=== PATIENT | male | born 1965 | race Caucasian/White ===

== ENCOUNTER 2022-06-28 01:50 | Emergency (ER) | payer SELFPAY ==
[2022-06-28] VITALS (8 sets, daily range): BP systolic 140–192; BP diastolic 54–112; PULSE 98–120; RESP 16–18; TEMP 36.2; O2SAT 93–98; BMI 29.1
[2022-06-28 02:40] LABS: Absolute Lymphocyte Count 1.88 X10^3/uL (0.83-4.51); Absolute Neutrophil Count 7.6 X10^3/uL (2.0-7.7); Basophil# 0.13 X10^3/uL; Basophil% 1.2 % (0-1); Eosinophil# 0.38 X10^3/uL; Eosinophils% 3.4 % (0-5); Hematocrit 43.8 % (40-54); Hemoglobin 14.4 g/dL (13.0-16.5); Lymphocyte # 1.88 X10^3/ul (0.83-4.51); Lymphocyte % 16.6 % (19-41); Mean Corp Hgb Conc 32.9 g/dL (32-36); Mean Corpuscular Hgb 28.6 pg (27.0-32.0); Mean Corpuscular Volume 86.9 fL (80-94); Mean Platelet Vol. 10.9 fl (6.2-12.0); Monocyte# 1.26 X10^3/uL; Monocyte% 11.2 % (0-10); NRBC Flagged by Analyzer 0 % (0-5); Neutrophil # 7.58 X10^3/uL (2.7-7.7); Platelet Count 225 K/mm3 (150-450); RBC Distribution Width CV 13.3 % (11.6-14.6); RBC Distribution Width SD 42.2 fl (35.1-43.9); Red Blood Count 5.04 M/mm3 (4.6-6.2); White Blood Count 11.3 K/mm3 (4.4-11.0)
[2022-06-28 02:53] LABS: Anion Gap 3 (5-15); BUN 26 mg/dL (7-18); Calcium,Total 8.9 mg/dL (8.5-10.1); Chloride 107 mmol/L (98-107); EST Glomerular Filtration Rate 92 mL/min (>60); Est Glom Filt Rate - Afr Amer 111 mL/min (>60); Estimated Creatinine Clearance 91.25 ml/min; Glucose 114 mg/dL (74-106); Potassium 3.7 mmol/L (3.5-5.1); Sodium Level 136 mmol/L (136-145)
[2022-06-28 02:55] LABS: Amphetamine Urine VISTA POSITIVE (<1000 ng/mL); Barbiturate Urine VISTA NEGATIVE (< 200 ng/mL); Benzodiazepine Urine VISTA NEGATIVE (< 200 ng/mL); Cocaine Urine VISTA NEGATIVE (< 300 ng/mL); Ecstacy Urine VISTA NEGATIVE (< 500 ng/mL); Methadone Urine VISTA NEGATIVE (< 300 ng/mL); PCP Urine VISTA NEGATIVE (< 25 ng/mL); THC Urine VISTA POSITIVE (< 50 ng/mL); Vista UDS pH Range 4
[2022-06-28 03:00] LABS: Alcohol, Blood (Medical)-Serum < 3.0 mg/dL
--- NOTE | 2022-06-28 06:25 | EKG12_ITS ---
Test Reason : Blood Pressure : / mmHG Vent. Rate : 104 BPM Atrial Rate : 104 BPM P-R Int : 100 ms QRS Dur : 082 ms QT Int : 358 ms P-R-T Axes : 028 036 064 degrees QTc Int : 470 ms Sinus tachycardia with short OH Otherwise normal ECG Confirmed by LUIS PEREZ, BRISEYDA ([id number]), city editor DAVID DENG ([id number]) on 07/03/2022 10:50:12 AM Referred By: BARBARA Confirmed By:BRISEYDA SMITH MD
--- NOTE | 2022-06-28 06:50 | ED.RN ---
ASSESSMENT FAXED TO US FROM CRISIS
[2022-06-28 07:08] LABS: AST(SGOT) 64 U/L (15-37); Alanine Aminotransfer ALT/SGPT 103 U/L (16-61); Albumin, Serum 3.4 g/dL (3.2-5.0); Alkaline Phosphatase 83 U/L (45-117); Bilirubin, Direct 0.14 mg/dL (0.00-0.30); Globulin 5.4 g/dL (2.2-4.2); Protein, Total 8.8 g/dL (6.4-8.2)
--- NOTE | 2022-06-28 07:40 | EDS_ITS ---
HPI History of Present Illness Chief Complaint: Suicidal Narrative Narrative: Patient is a 57-year-old male with past medical history of methamphetamine abuse. He states that he is always had suicidal ideation but that it appeared that the methamphetamine abuse kept it at bay. He states has been sober now for 5 months and recently his thoughts of suicide ideation have increased. He states is gotten to the point where he has actively plan to harm himself. He states this evening he was on his way to by sleeping pills so that he could overdose when his daughter contacted him and crisis center and they were able to convince him to not harm self but come to the hospital for evaluation. Patient does admit to having a few hits of meth this evening but otherwise denies alcohol or other illicit substances. PFSH PFSH Medical History no medical history Home Medications naproxen 500 mg tablet 500 mg PO BID PRN #20 tabs 12/05/15 [Rx Last Taken Unknown] prednisone 10 mg tablet 10 mg PO DAILY ##48 12/05/15 [Rx Last Taken Unknown] Allergy/AdvReac Type Severity Reaction Status Date / Time Penicillins AdvReac Upset Verified 06/28/22 01:55 Stomach Social History Smoking Status: Current every day smoker tobacco type: cigarettes ROS ROS ED Constitutional Constitutional ED: Denies chills or fever(s) Eyes Eyes: Denies change in vision ENT ENT ED: Denies sore throat Cardiovascular Cardiovascular: Denies chest pain Respiratory/Chest Respiratory/Chest: Denies cough or dyspnea Gastrointestinal Gastrointestinal: Denies abdominal pain, diarrhea, nausea or vomiting Genitourinary Genitourinary ED: Denies dysuria Musculoskeletal Musculoskeletal: Denies myalgias Integumentary Denies rash Neurologic Neurologic: Denies headache(s) Psychiatric Psychiatric: Reports depression, suicidal ideation and suicidal thoughts Hematologic/Lymphatic Hematologic/Lymphatic: Denies easy bleeding or easy bruising EXAM Physical Exam Const Vital Signs: 06/28/22 01:50 06/28/22 06:16 06/28/22 04:00 Temperature 97.1 F L Temperature Source Temporal Pulse Rate 120 H 98 Respiratory Rate 18 18 16 Blood Pressure 192/112 H 146/70 H Blood Pressure Mean 138 95 Pulse Ox 97 98 Oxygen Delivery Method Room Air Room Air Positive well nourished and well developed General Appearance ED: well developed Eyes PERRL and EOMs intact bilaterally Neck supple Resp normal respiratory effort and clear to auscultation bilaterally Cardio regular rhythm Rate: tachycardic and other Other Details: Tachycardic rate with regular rhythm consistent with history of methamphetamine abuse GI normal to inspection, nondistended, normoactive bowel sounds, non-tender, non- distended and no masses Auscultation: normoactive bowel sounds Palpation: soft Extremity normal to inspection Neuro oriented x3 and CN's II-XII intact bilaterally Sensorium / Orientation: alert Psych Psych Narrative: Patient has a depressed affect with suicidal ideation Skin no rashes or lesions noted MDM MDM MDM Narrative Medical decision making narrative: Patient presented to the ER mildly hypertensive and tachycardic consistent with his recent methamphetamine use. He reported suicidal ideation with a plan and a near attempt as he reported he was on his way to buy pills in order to overdose this evening. Secondary to that gesture along with his worsening suicidal ideation a psychiatric work-up was obtained. Labs revealed no clinically significant finding. The patient was evaluated by crisis center and they do agree that he will need placed for treatment based on his persistent suicidal ideation and near attempt this evening. This plan of care was discussed with the patient he is agreeable to placement. The patient will be signed out to the daytime physician Dr. Hernandez pending acceptance The patient is medically cleared from emergency room standpoint for transfer/placement in a psychiatric hospital History & Record Review Discussion w/independent historian: Patient Lab Data Attestation: I reviewed the patient's lab results. Labs: Laboratory Results - last 24 hr 06/28/22 06/28/22 06/28/22 02:15 02:27 02:27 WBC 11.3 H RBC 5.04 Hgb 14.4 Hct 43.8 MCV 86.9 MCH 28.6 MCHC 32.9 RDW Std Deviation 42.2 RDW Coeff of Lara 13.3 Plt Count 225 MPV 10.9 Immature Gran % (Auto) 0.600 Neut % (Auto) 67.0 Lymph % (Auto) 16.6 L [place] % (Auto) 11.2 H Eos % (Auto) 3.4 Baso % (Auto) 1.2 H Absolute Neuts (auto) 7.6 Absolute Lymphs (auto) 1.88 Nucleated RBC % 0 Sodium 136 Potassium 3.7 Chloride 107 Carbon Dioxide 26.0 Anion Gap 3 L BUN 26 H Creatinine 0.90 Estim Creat Clear Calc 91.25 Est GFR (MDRD) Af Amer 111 Est GFR (MDRD) Non-Af 92 BUN/Creatinine Ratio 29.0 H Glucose 114 H Calcium 8.9 Total Bilirubin Direct Bilirubin AST ALT Alkaline Phosphatase Total Protein Albumin Globulin Urine Opiates Screen NEGATIVE Urine Methadone Screen NEGATIVE Ur Barbiturates Screen NEGATIVE Ur Phencyclidine Scrn NEGATIVE Ur Amphetamines Screen POSITIVE H MDMA (Ecstasy) Screen NEGATIVE U Benzodiazepines Scrn NEGATIVE Urine Cocaine Screen NEGATIVE U Cannabinoids Screen POSITIVE H Ur Drug Screen Comment Ethyl Alcohol 06/28/22 06/28/22 02:27 02:27 WBC RBC Hgb Hct MCV MCH MCHC RDW Std Deviation RDW Coeff of Lara Plt Count MPV Immature Gran % (Auto) Neut % (Auto) Lymph % (Auto) [place] % (Auto) Eos % (Auto) Baso % (Auto) Absolute Neuts (auto) Absolute Lymphs (auto) Nucleated RBC % Sodium Potassium Chloride Carbon Dioxide Anion Gap BUN Creatinine Estim Creat Clear Calc Est GFR (MDRD) Af Amer Est GFR (MDRD) Non-Af BUN/Creatinine Ratio Glucose Calcium Total Bilirubin 0.40 Direct Bilirubin 0.14 AST 64 H ALT 103 H Alkaline Phosphatase 83 Total Protein 8.8 H Albumin 3.4 Globulin 5.4 H Urine Opiates Screen Urine Methadone Screen Ur Barbiturates Screen Ur Phencyclidine Scrn Ur Amphetamines Screen MDMA (Ecstasy) Screen U Benzodiazepines Scrn Urine Cocaine Screen U Cannabinoids Screen Ur Drug Screen Comment Ethyl Alcohol < 3.0 Management Discussion w/another healthcare provider: personal support worker/Case management and Behavioral health Discharge Plan Triage Chief Complaint: Suicidal ED Provider: Kyle Pelletier Dx/Rx/DC Orders Clinical Impression: Depression with suicidal ideation, Methamphetamine abuse Prescriptions: No Action prednisone 10 MG tablet 10 mg PO DAILY Qty: 48 0RF Rx Instructions: 6 po qd x 3 days, 4 po qd x 3 days, 2 po qd x 3 days, 1 po qd x 3 days naproxen 500 MG tablet 500 mg PO BID PRN Qty: 20 0RF Primary Care Provider: Care Physician,No Primary Referrals: Care Physician,No Primary [Primary Care Provider] - Disposition Disposition: Psychiatric Hospital or Unit
--- NOTE | 2022-06-28 11:31 | ED.RN ---
THIS RN ATTEMPTED TO CALL REPORT TO JASON AT 1000. NO ANSWER THIS RN LEFT WITH CALL BACK NUMBER. ATTEMPTED A SECOND CALL AT 1130 WITH NO ANSWER.
== END 2022-06-28 11:39 ==
PROVIDERS: Emergency Provider Emergency Medicine; Visit Provider Emergency Medicine
DX: F32.A Depression, unspecified (principal); F15.10 Other stimulant abuse, uncomplicated; R45.851 Suicidal ideations; F17.210 Nicotine dependence, cigarettes, uncomplicated
CPT/HCPCS: 80048; 80076; 80307; 82077; 85025; 87811; 93005; 99284

== ENCOUNTER 2024-07-18 18:08 | Emergency (ER) | payer MEDICAID, SELFPAY ==
[2024-07-18 18:08] VITALS: BP 181/111; PULSE 125; RESP 22; TEMP 36.4; O2SAT 100; BMI 28.3
[2024-07-18 18:27] VITALS: BP 162/81; PULSE 122; RESP 18; O2SAT 96
--- NOTE | 2024-07-18 18:30 | ED.RN ---
PT PRESENTS TO THE ED WITH MULTPLE C/O OF CHRONIC PAIN. HE DOES STATE HE HAS SOB. PTS HR IS ELEVATED TO 122. CALLED FOR EKG. PT STATES IN JUNE HE WAS SET UP WITH A HOLTER MONITOR BUT SOMEONE STOLE IT AND HE WAS NEVER ABLE TO GET THE READ OR COMPLETE THE PROCESS. HE STATES THE REASON FOR THE HALTER WAS D/T FEELING DIZZY, SYNCOPE, AND SOB RELATED TO HIS HR
--- NOTE | 2024-07-18 19:18 | RAD_ITS ---
PROCEDURE: CHEST PA AND LATERAL 07/18/2024 REASON FOR EXAM: SOB TECHNIQUE: Frontal and lateral views of the chest. COMPARISON: None FINDINGS: Hardware: None Heart: The heart size is normal. Mediastinum: The mediastinal contour is unremarkable. Lungs: No focal consolidation. No pneumothorax. No pleural effusion. Bones: The bones are unremarkable. RAD/Chest PA and Lateral IMPRESSION: NO ACUTE FINDINGS. Reading Location: [id number]
--- NOTE | 2024-07-18 19:22 | EDS_ITS ---
HPI <JASON Magdaleno - Last Filed: 07/18/24 21:39> History of Present Illness Chief Complaint: Other, Pain/Inj Narrative Narrative: Patient presenting today with multiple chronic vague complaints. He reports that he has had pain to his bilateral shoulders, wrists, legs, back, and ankles off and on for years. He reports occasional swelling to his ankles bilaterally. He reports that he usually gets a flare of this every 2 to 3 months. He has been seen in [place] ED and [place] [facility] for similar symptoms with no clear answer. He also reports chronic dyspnea with exertion that has been ongoing for years, he reports that today it felt worse. He reports a chronic cough with productive sputum, this has not been any worse recently. He denies any history of blood clots or recent surgery/travel/immobilization. He denies cardiac history. He does admit to smoking a pack of cigarettes per day. He does have a history of methamphetamine abuse, when asked if he has used recently he reports that he has been around people at the [facility] who are using it and has been exposed to it but denies recently using. He denies fevers, chills, abdominal pain, chest pain, nausea, and vomiting. [facility] <JASON Magdaleno - Last Filed: 07/18/24 21:39> [facility] Home Medications ?Medication ?Instructions ?Recorded ?Last Taken ?Type albuterol sulfate 90 mcg/actuation 1 - 2 puff inhalati on Q4H PRN PRN 07/18/24 Unknown Rx aerosol inhaler (Ventolin HFA) Wheezing #1 inh Allergy/AdvReac Type Severity Reaction Status Date / Time Penicillins AdvReac Upset Verified 07/18/24 18:32 Stomach Social History Smoking Status: Current every day smoker tobacco type: cigarettes ROS <JASON Magdaleno - Last Filed: 07/18/24 21:39> ROS ED Constitutional Constitutional ED: Denies chills or fever(s) Cardiovascular Cardiovascular: Denies chest pain Respiratory/Chest Respiratory/Chest: Reports cough, dyspnea on exertion and sputum; Denies tachypnea or wheezing Gastrointestinal Gastrointestinal: Denies abdominal pain, nausea or vomiting Musculoskeletal Musculoskeletal: Reports arthralgias Integumentary Denies rash Neurologic Neurologic: Denies weakness EXAM <JASON Magdaleno - Last Filed: 07/18/24 21:39> Physical Exam Const Vital Signs: 07/18/24 18:08 07/18/24 18:27 07/18/24 18:29 Temperature 97.6 F L Temperature Source Temporal Pulse Rate 125 H 122 H Respiratory Rate 22 H 18 Respiratory Effort Short of Breath Respiratory Pattern Normal Blood Pressure 181/111 H 162/81 H Blood Pressure Mean 134 108 Pulse Ox 100 96 Oxygen Delivery Method Room Air Room Air 07/18/24 19:25 07/18/24 20:21 07/18/24 21:19 Temperature 98 F Temperature Source Pulse Rate 110 H 110 H Respiratory Rate 25 H 25 H Respiratory Effort Respiratory Pattern Blood Pressure 153/86 H 153/86 H Blood Pressure Mean 108 108 Pulse Ox 93 93 Oxygen Delivery Method Room Air Positive well nourished, well developed and no apparent distress General Appearance ED: well developed HEENT Reports normocephalic and head/scalp atraumatic Mouth ED: Yes moist mucous membranes normal Eyes PERRL and EOMs intact bilaterally Neck full ROM and supple Chest Wall inspection of chest normal and palpation of chest normal Resp normal respiratory effort and clear to auscultation bilaterally Cardio regular rate and regular rhythm GI soft to palpation, non-tender, non-distended and no masses Back/Spine normal ROM and normal to inspection Cervical Spine: Negative for cervical spine tenderness Thoracic Spine / Upper Back: Negative for thoracic spinal tenderness Lumbar Spine / Lower Back: Negative for lumbar spinal tenderness Extremity normal to inspection and full ROM Extremity Narrative: Bilateral radial and DP pulses 2+, good cap refill to the upper and lower extremities, 5/5 strength and sensation upper and lower extremities. Patient does not have any tenderness palpation to the upper or lower extremities, he has full range of motion to the extremities. No overlying erythema, warmth, rash, or signs of infection. No lower extremity edema bilaterally. Neuro oriented x3, moves all extremities, no focal motor deficits and no sensory deficits noted Sensorium / Orientation: awake and alert Psych mental status grossly normal and thought process normal Skin no rashes or lesions noted and no wounds <Dr. Manjeet Lujan DO - Last Filed: 07/18/24 23:34> Physical Exam Const Vital Signs: 07/18/24 18:08 07/18/24 18:27 07/18/24 18:29 Temperature 97.6 F L Temperature Source Temporal Pulse Rate 125 H 122 H Respiratory Rate 22 H 18 Respiratory Effort Short of Breath Respiratory Pattern Normal Blood Pressure 181/111 H 162/81 H Blood Pressure Mean 134 108 Pulse Ox 100 96 Oxygen Delivery Method Room Air Room Air 07/18/24 19:25 07/18/24 20:21 07/18/24 21:19 Temperature 98 F Temperature Source Pulse Rate 110 H 110 H Respiratory Rate 25 H 25 H Respiratory Effort Respiratory Pattern Blood Pressure 153/86 H 153/86 H Blood Pressure Mean 108 108 Pulse Ox 93 93 Oxygen Delivery Method Room Air [facility] [place] <JASON Magdaleno - Last Filed: 07/18/24 21:39> [facility] Narrative Medical decision making narrative: Patient presenting today with multiple vague complaints that been ongoing for years intermittently. He gets pain flares to his back, wrists, lower extremities off and on. Nothing seems to trigger these flares. He has been to multiple ED's for them. I will refer him to pain management, no obvious causes of his pain on exam. No signs of infection, he is neurovascularly intact in the upper and lower extremities bilaterally. There is no peripheral edema on exam. No rash, he denies any injury. He also reports mild chronic dyspnea with exertion and a chronic productive cough. He does smoke about a pack of cigarettes per day, suspect this is related to COPD. He has had relief with albuterol, he has been using his friends, I will give him a prescription for this. CBC reveals a mild leukocytosis at 12.1, BMP largely unremarkable, negative troponin. Chest x-ray negative for cardiopulmonary abnormality. No infiltrate. He is not hypoxic here. No conversational dyspnea. EKG shows no ischemia. He has a low Wells score, low suspicion for PE. He does have an elevated heart rate, this has been elevated in the past. He has been exposed to methamphetamines which could be contributing to his elevated heart rate, he also used albuterol prior to arrival. This did improve while here. He was given Toradol for his arthralgias and on reexamination he reports improvement of his symptoms. I will give him a referral for pain management. He will be discharged home in stable condition. ED attending note: I evaluated the patient in conjunction with the DE[facility]. I agree with his/her statements and above findings. I have personally performed a face to face assessment of the patient and have reviewed the [facility] Note. I performed a substantive portion of the visit including all aspects of the following. I personally saw the patient performed chart review, physical exam, reviewed labs, imaging (if obtained), and formulated a treatment and management plan. History as above. Additional history. Patient notes chronic shortness of breath. The patient denies recent surgery in the last 4 weeks or immobilization in the last 3 days, denies previous diagnosis of DVT or PE, hemoptysis, unilateral leg swelling or malignancy with treatment the last 6 months or palliative. No estrogen use noted. Notes he took his friend's albuterol prior to arrival. Notes he is a round of methamphetamine but does not use despite prior history as documented of methamphetamine abuse. Denies chest pain to me. Denies lower extremity swelling. Denies joint swelling or deep range of motion but does note intermittent pain with no inciting event for months. Exam: Patient was initially tachycardic at a heart rate of 125, tachypneic with a respirate of 22 and hypertensive with a blood pressure 181/111. Lungs were clear. Abdomen was soft. Patient had no warmth or significant joint swelling noted. Full range of motion all of his joints. MDM/plan: Will perform a broad lab and imaging workup to further elucidate etiology of the patient's complaints. Despite tachycardia I have a low suspicion for PE given low risk Wells score and more possible explanation for the patient's elevated heart rate. The patient has a baseline heart rate approximately 110 going back to 2016. He admitted to using albuterol which causes tachycardia as well as being exposed to methamphetamine which has a history of using. Suspect his tachycardia is related to all the above. If labs and images are unremarkable patient will be discharged with close outpatient follow-up. This note was generated with Policard dictation software. It may contain incorrect words, spelling, and punctuation that were not noted in review of the chart prior to signing. Lab Data Attestation: I reviewed the patient's lab results. Labs: Laboratory Results - last 24 hr 07/18/24 18:33 WBC 12.1 H RBC 5.16 Hgb 14.7 Hct 45.1 MCV 87.4 MCH 28.5 MCHC 32.6 RDW Std Deviation 44.6 H RDW Coeff of Lara 13.7 Plt Count 227 MPV 12.0 Immature Gran % (Auto) 0.600 Neut % (Auto) 75.1 H Lymph % (Auto) 12.0 L [place] % (Auto) 9.7 Eos % (Auto) 1.9 Baso % (Auto) 0.7 Absolute Neuts (auto) 9.1 H Absolute Lymphs (auto) 1.44 Nucleated RBC % 0 Sodium 135 Potassium 4.0 Chloride 100 Carbon Dioxide 24.3 Anion Gap 11 BUN 18 Creatinine 0.97 Estim Creat Clear Calc 87.39 Est GFR (MDRD) Non-Af 89 BUN/Creatinine Ratio 18.7 Glucose 147 H Calcium 9.1 Troponin T High Sens 19 Radiography X-Ray: Read by ED Physician Diagnostic Testing: Clinical Impression(s) from Imaging Studies Chest X-Ray 07/18/24 19:18 IMPRESSION: NO ACUTE FINDINGS. Reading Location: [facility] EK Initial EKG: Comments: 120 bpm, sinus tachycardia, no ST elevation, interpreted by attending ED physician <Dr. Manjeet Lujan, DO - Last Filed: 07/18/24 23:34> [facility] [place] MDM Narrative Medical decision making narrative: Patient presenting today with multiple vague complaints that been ongoing for years intermittently. He gets pain flares to his back, wrists, lower extremities off and on. Nothing seems to trigger these flares. He has been to multiple ED's for them. I will refer him to pain management, no obvious causes of his pain on exam. No signs of infection, he is neurovascularly intact in the upper and lower extremities bilaterally. There is no peripheral edema on exam. No rash, he denies any injury. He also reports mild chronic dyspnea with exertion and a chronic productive cough. He does smoke about a pack of cigarettes per day, suspect this is related to COPD. He has had relief with albuterol, he has been using his friends, I will give him a prescription for this. CBC reveals a mild leukocytosis at 12.1, BMP largely unremarkable, negative troponin. Chest x-ray negative for cardiopulmonary abnormality. EKG shows no ischemia. He has a low Wells score, low suspicion for PE. ED attending note: I evaluated the patient in conjunction with the [facility]. I agree with his/her statements and above findings. I have personally performed a face to face assessment of the patient and have reviewed the [facility] Note. I performed a substantive portion of the visit including all aspects of the following. I personally saw the patient performed chart review, physical exam, reviewed labs, imaging (if obtained), and formulated a treatment and management plan. History as above. Additional history. Patient notes chronic shortness of breath. The patient denies recent surgery in the last 4 weeks or immobilization in the last 3 days, denies previous diagnosis of DVT or PE, hemoptysis, unilateral leg swelling or malignancy with treatment the last 6 months or palliative. No estrogen use noted. Notes he took his friend's albuterol prior to arrival. Notes he is a round of methamphetamine but does not use despite prior history as documented of methamphetamine abuse. Denies chest pain to me. Denies lower extremity swelling. Denies joint swelling or deep range of motion but does note intermittent pain with no inciting event for months. Exam: Patient was initially tachycardic at a heart rate of 125, tachypneic with a respirate of 22 and hypertensive with a blood pressure 181/111. Lungs were clear. Abdomen was soft. Patient had no warmth or significant joint swelling noted. Full range of motion all of his joints. MDM/plan: Will perform a broad lab and imaging workup to further elucidate etiology of the patient's complaints. Despite tachycardia I have a low suspicion for PE given low risk Wells score and more possible explanation for the patient's elevated heart rate. The patient has a baseline heart rate approximately 110 going back to 2016. He admitted to using albuterol which causes tachycardia as well as being exposed to methamphetamine which has a history of using. Suspect his tachycardia is related to all the above. If labs and images are unremarkable patient will be discharged with close outpatient follow-up. This note was generated with Policard dictation software. It may contain incorrect words, spelling, and punctuation that were not noted in review of the chart prior to signing. Lab Data Labs: Laboratory Results - last 24 hr 07/18/24 18:33 WBC 12.1 H RBC 5.16 Hgb 14.7 Hct 45.1 MCV 87.4 MCH 28.5 MCHC 32.6 RDW Std Deviation 44.6 H RDW Coeff of Lara 13.7 Plt Count 227 MPV 12.0 Immature Gran % (Auto) 0.600 Neut % (Auto) 75.1 H Lymph % (Auto) 12.0 L [place] % (Auto) 9.7 Eos % (Auto) 1.9 Baso % (Auto) 0.7 Absolute Neuts (auto) 9.1 H Absolute Lymphs (auto) 1.44 Nucleated RBC % 0 Sodium 135 Potassium 4.0 Chloride 100 Carbon Dioxide 24.3 Anion Gap 11 BUN 18 Creatinine 0.97 Estim Creat Clear Calc 87.39 Est GFR (MDRD) Non-Af 89 BUN/Creatinine Ratio 18.7 Glucose 147 H Calcium 9.1 Troponin T High Sens 19 Radiography Chest X-Ray - ED: Read by ED Physician Diagnostic Testing: Clinical Impression(s) from Imaging Studies Chest X-Ray 07/18/24 19:18 IMPRESSION: NO ACUTE FINDINGS. Reading Location: [facility] Discharge Plan Triage Chief Complaint: Other, Pain/Inj ED Midlevel Provider: Edna Nichols ED Provider: Manjeet Lujan Dx/Rx/DC Orders Clinical Impression: Tachycardia, Chronic dyspnea, Tobacco abuse, Arthralgia Instructions: ED Arthralgia, ED Dyspnea Prescriptions: New albuterol sulfate [Ventolin HFA] 90 mcg/actuation HFA aerosol inhaler 1 - 2 puff inhalation Q4H PRN PRN (Reason: Wheezing) Qty: 1 0RF Primary Care Provider: Care Physician,No Primary Referrals: Wily Cervantes MD [Med Staff - Active Staff] - 5-7 Days Care Physician,No Primary [Primary Care Provider] - Activity Restrictions/Additional Instructions: Please follow-up with pain management. Can also follow-up at the [facility] if you need a PCP at [phone]. Take Tylenol and ibuprofen for your pain as needed. Print Language: Welsh Disposition Disposition: Home, Self Care Discharge Date/Time: 07/18/24 21:33
[2024-07-18 19:31] LABS: Absolute Lymphocyte Count 1.44 X10^3/uL (0.83-4.51); Absolute Neutrophil Count 9.1 X10^3/uL (2.0-7.7); Basophil# 0.09 X10^3/uL; Basophil% 0.7 % (0-1); Eosinophil# 0.23 X10^3/uL; Eosinophils% 1.9 % (0-5); Hematocrit 45.1 % (40-54); Hemoglobin 14.7 g/dL (13.0-16.5); Lymphocyte # 1.44 X10^3/ul (0.83-4.51); Mean Corp Hgb Conc 32.6 g/dL (32-36); Mean Corpuscular Hgb 28.5 pg (27.0-32.0); Mean Corpuscular Volume 87.4 fL (80-94); Monocyte# 1.17 X10^3/uL; Monocyte% 9.7 % (0-10); NRBC Flagged by Analyzer 0 % (0-5); Neutrophil # 9.05 X10^3/uL (2.7-7.7); Neutrophil % 75.1 % (47-70); Platelet Count 227 K/mm3 (150-450); RBC Distribution Width CV 13.7 % (11.6-14.6); RBC Distribution Width SD 44.6 fl (35.1-43.9); Red Blood Count 5.16 M/mm3 (4.6-6.2); White Blood Count 12.1 K/mm3 (4.4-11.0)
[2024-07-18] MEDS: Ketorolac 15 MG/ML Vial IV (19:46)
[2024-07-18 19:47] LABS: Anion Gap 11 (5-15); BUN 18 mg/dL (4-19); BUN/Creat Ratio 18.7 RATIO (10-20); Calcium,Total 9.1 mg/dL (7.6-11.0); Carbon Dioxide 24.3 mmol/L (21.0-32.0); Chloride 100 mmol/L (98-108); Creatinine, Serum 0.97 mg/dL (0.70-1.20); EST Glomerular Filtration Rate 89 (>60); Estimated Creatinine Clearance 87.39 ml/min (50-250); Glucose 147 mg/dL (70-99); Sodium Level 135 mmol/L (133-145); Troponin T High Sensitivity 19 ng/L (<=22)
[2024-07-18 20:21] VITALS: BP 153/86; PULSE 110; RESP 25; O2SAT 93
[2024-07-18] MEDS: 0.9% Normal Saline (500mL Bag) 500 ML 999 ML IV (20:36)
[2024-07-18 21:19] VITALS: BP 153/86; PULSE 110; RESP 25; TEMP 36.6; O2SAT 93
== END 2024-07-18 21:33 | disposition home or self-care (01) ==
PROVIDERS: Physician Assistant; Emergency Provider Emergency Medicine; Visit Provider Emergency Medicine
DX: R00.0 Tachycardia, unspecified (principal); R06.00 Dyspnea, unspecified; F17.210 Nicotine dependence, cigarettes, uncomplicated
CPT/HCPCS: 71046; 80048; 84484; 85025; 93005; 96361; 96374; 99284; A4216

== ENCOUNTER 2025-02-03 08:52 | Inpatient (IN) | payer MEDICAID, SELFPAY ==
[2025-02-03 08:53] VITALS: BP 166/92; PULSE 119; RESP 18; TEMP 37.1; O2SAT 100; BMI 26.2
--- NOTE | 2025-02-03 09:29 | ED.VIS.LOWEX ---
HPI History of Present Illness Chief Complaint: Lower Extremity Injury Detail of Chief Complaint: Leg pain Informant: patient Narrative Narrative: Patient presents to the emergency department via EMS from homeless care home with complaint of bilateral leg pain and difficulty ambulating. Symptoms initially started about a month and a half ago while in [facility]it[facility]. He was just released from penitentiary yesterday. While in penitentiary he had x-rays of his pelvis and legs that apparently showed some mild arthritis. Patient has pain all the time that he rates an 8 out of 10. Having a hard time walking even with a walker and cannot get around. Denies fevers or chills or sweats. He denies injury or trauma. He is a smoker. PFSH PFSH Home Medications ?Medication ?Instructions ?Recorded ?Last Taken ?Type hydrocodone-acetaminophen 5-325mg 1 tab PO Q4H PRN PRN Pain 2 days 02/03/25 Unknown Rx 5mg-325mg #10 TABLETS Allergy/AdvReac Type Severity Reaction Status Date / Time Penicillins AdvReac Upset Verified 02/03/25 08:55 Stomach Social History Smoking Status: Current every day smoker tobacco type: cigarettes ROS ROS ED Review of Systems ROS Unobtainable: other Constitutional Constitutional ED: Reports lethargy; Denies chills, fever(s), sweats or weight loss Eyes Eyes: Denies blurry vision, change in vision or diplopia ENT ENT ED: Denies rhinorrhea or sore throat Cardiovascular Cardiovascular: Denies chest pain, orthopnea or racing heartbeat Respiratory/Chest Respiratory/Chest: Denies cough, dyspnea, dyspnea on exertion, orthopnea or sputum Gastrointestinal Gastrointestinal: Denies abdominal pain, diarrhea, nausea or vomiting Genitourinary Genitourinary ED: Denies dysuria, hematuria or urinary frequency Musculoskeletal Musculoskeletal: Reports other Details: Bilateral leg pain ; Denies arthralgias, back pain, myalgias or neck pain Integumentary Denies abscess, Abrasions or rash Neurologic Neurologic: Denies headache(s) or weakness Psychiatric Psychiatric: Denies anxiety, depression or suicidal thoughts Endocrine Endocrinology: Denies polydipsia, polyphagia or polyuria Hematologic/Lymphatic Hematologic/Lymphatic: Denies easy bleeding, easy bruising or lymphadenopathy Allergic/Immunologic Allergic/Immunologic ED: Denies mouth swelling, tongue swelling or urticaria EXAM Physical Exam Const Vital Signs: 02/03/25 08:53 02/03/25 10:16 Temperature 98.7 F 97.8 F Temperature Source Oral Oral Pulse Rate 119 H 106 H Respiratory Rate 18 18 Blood Pressure 166/92 H 168/93 H Blood Pressure Mean 116 118 Pulse Ox 100 100 Oxygen Delivery Method Room Air Room Air Positive well nourished and well developed General Appearance ED: well developed and NAD HEENT Reports TM's clear and moist mucous membranes normocephalic and atraumatic; Negative for trauma or tenderness Tympanic Membrane ED: Yes TM's clear Eyes PERRL and EOMs intact bilaterally General Eye ED: Negative for pale conjunctiva or scleral icterus Neck no lymphadenopathy, supple and no JVD General: Negative for tenderness Chest Wall inspection of chest normal and palpation of chest normal Chest: Negative for tenderness Resp normal respiratory effort and clear to auscultation bilaterally Effort and Inspection: Negative for respiratory distress or pain with movement Auscultation: Negative for rhonchi, wheezes or diminished lung sounds Cardio regular rate, regular rhythm, S1 normal heart sound, S2 normal heart sound and no murmurs Peripheral Pulses: pulses 2+ throughout GI normal to inspection, nondistended, normoactive bowel sounds, soft to palpation, non-tender, non-distended and no masses Back/Spine no CVA tenderness and no thoracic nor lumbar tenderness Extremity normal to inspection Extremity Narrative: Cap refill about 6 seconds both lower extremities to feet. Minimally palpable dorsal pedal and posterior tibial pulses as well as popliteal pulses. No ecchymosis or bruising or pallor noted. No edema noted. No joint effusions noted at the knees or ankles. No cellulitic changes General Extremety ED: Negative for edema General Extremity: Negative for edema Neuro oriented x3, CN's II-XII intact bilaterally, no sensory deficits noted and gait normal Sensorium / Orientation: awake, alert, oriented to person, oriented to place and oriented to time Motor Exam: strength 5/5 throughout and strength abnormal Psych mental status grossly normal Skin no rashes or lesions noted and no wounds MDM MDM MDM Narrative Medical decision making narrative: Patient presents with a pain in both legs and difficulty ambulating now. Initially had some concern for claudication. Also on the differential would be polyarthropathy. IV line established. CBC with differential obtained showed a white count of 9.5 with hemoglobin 12.2 and platelet count of 240. Chemistries were unremarkable. Sed rate elevated at 27 and CRP was elevated 83.5. I obtained CT scan of abdomen pelvis with runoffs to evaluate vasculature. CT shows enlarged prostate gland with lobulated contours and loss of margin and extraprostatic extension of disease including anterior wall of rectum and posterior wall bladder concerning for prostate neoplasm. Patient also has lytic sclerotic lesions in the skeleton including distorted appearance of proximal right 12th rib and proximal left 11th rib with lytic lesions right and left iliac bones and multiple vertebral bodies. Patient had mild peripheral multilevel vascular disease with no occlusions. This point we will discuss case with hospitalist to evaluate patient for admission as he will need further workup for suspected prostate neoplasm with metastasis to the bone. Patient having difficulty ambulating and may need placement as well. Patient was seen by hospitalist and now is refusing admission. Patient would like to sign out AGAINST MEDICAL ADVICE. Patient understands that he has cancer and symptoms could progress quite quickly. I will give him referrals to urology and oncology. I will write him a prescription for few [place] for pain. Patient was not excepted back at the homeless care home as he cannot care for himself and patient return to the emergency department for placement. He was offered admission for placement and outpatient follow-up and workup for his newly diagnosed metastatic prostate cancer. He does not want to be transferred to another facility for more emergent diagnosis and treatment of his metastatic prostate cancer as he understands we do not have urology or oncology available in the near term at our facility. Lab Data Attestation: I reviewed the patient's lab results. Labs: Laboratory Results - last 24 hr 02/03/25 02/03/25 09:42 12:41 WBC 9.5 RBC 4.50 L Hgb 12.2 L Hct 37.9 L MCV 84.2 MCH 27.1 MCHC 32.2 RDW Std Deviation 44.1 H RDW Coeff of Lara 14.4 Plt Count 240 MPV 10.6 Immature Gran % (Auto) 0.600 Neut % (Auto) 68.4 Lymph % (Auto) 16.7 L Teller % (Auto) 10.5 H Eos % (Auto) 2.8 Baso % (Auto) 1.0 Absolute Neuts (auto) 6.5 Absolute Lymphs (auto) 1.58 Nucleated RBC % 0 ESR 27 H Sodium 139 Potassium 4.4 Chloride 103 Carbon Dioxide 24.4 Anion Gap 12 BUN 31 H Creatinine 1.03 Estim Creat Clear Calc 75.31 Est GFR (MDRD) Non-Af 83 BUN/Creatinine Ratio 30.5 H Glucose 106 H Calcium 9.3 C-React Prot Ext Range 83.50 H PSA Screen > 5000.00 H Radiography Diagnostic Testing: Clinical Impression(s) from Imaging Studies Abdomen/Pelvis CTA 02/03/25 10:07 IMPRESSION: Enlarged prostate gland with lobulated contours and loss of margin and extraprostatic extension of disease including the anterior wall of the rectum and posterior wall of the bladder concerning for prostatic neoplasm. Extensive pelvic and retroperitoneal lymphadenopathy. Lytic sclerotic lesions in the skeleton including a destroyed appearance of the proximal right 12th rib and proximal left 11th rib with lytic lesion seen in the right and left iliac bones and multiple vertebral bodies more significantly at L1. Heavy coronary arterial calcifications and small pericardial effusion. No abdominal aortic aneurysm, dissection or occlusion. Mild peripheral multilevel vascular disease with no occlusion. Three-vessel runoff present through the level of the ankle. Reading Location: [facility] Discharge Plan Triage Chief Complaint: Lower Extremity Injury ED Provider: Stormy Chase Dx/Rx/DC Orders Clinical Impression: Inability to walk, Prostate cancer metastatic to bone Primary Care Provider: Care Physician,No Primary
[2025-02-03] MEDS: 0.9% Normal Saline (1000mL) 1,000 ML 150 ML IV (09:40)
[2025-02-03 09:50] LABS: Hematocrit 37.9 % (40-54); Hemoglobin 12.2 g/dL (13.0-16.5); Immature Granulocytes Count 0.060 X10^3/uL (0.0-0.0); Mean Corp Hgb Conc 32.2 g/dL (32-36); Mean Corpuscular Volume 84.2 fL (80-94); Mean Platelet Vol. 10.6 fl (6.2-12.0); NRBC Flagged by Analyzer 0 % (0-5); Platelet Count 240 K/mm3 (150-450); RBC Distribution Width CV 14.4 % (11.6-14.6); RBC Distribution Width SD 44.1 fl (35.1-43.9); Red Blood Count 4.50 M/mm3 (4.6-6.2); White Blood Count 9.5 K/mm3 (4.4-11.0)
--- NOTE | 2025-02-03 10:07 | CT_ITS ---
PROCEDURE: CTA ABD W/RUNOFF W/WO CONTRAST 02/03/2025 REASON FOR EXAM: BILATERAL LEG PAIN TECHNIQUE: Procedure Code: [id number] Modality: CT Procedure: CTA ABD W/RUNOFF W/WO CONTRAST CT angiography of the abdomen and pelvis with bilateral runoff is performed following the intravenous administration of contrast. Axial sagittal and coronal reformatted images are submitted for interpretation. 3D post processing is performed consisting of MIP images CONTRAST: 100 VOLUME: Isovue 370 mL One or more dose reduction techniques were used (e.g., Automated exposure control, adjustment of the mA and/or kV according to patient size, use of iterative reconstruction technique). RADIATION DOSE SUMMARY: Total DLP: 1121 MGycm COMPARISON: None FINDINGS: Vascular findings: There is a small pericardial effusion. Coronary arterial calcifications are evident. Atherosclerosis is seen in the descending aorta which is of normal caliber. There is atherosclerosis of the origin of the celiac axis and SMA. No stenosis seen. Atherosclerotic plaque is seen within the renal arteries bilaterally without stenosis. The abdominal aorta demonstrates heavy calcified plaque but no aneurysm. There is no dissection. The MIRTA is patent. The right common iliac artery demonstrates extensive atherosclerosis with less than 50% stenosis present in the proximal common iliac artery. There is normal bifurcation of the internal and external iliac arteries which demonstrates eccentric calcified plaque. 50% stenosis is present in right internal iliac artery. Eccentric calcified plaque is noted throughout the course of the right external iliac artery. Extensive soft and hard plaque is seen in the common femoral artery and superficial femoral artery. There is no occlusion. The popliteal artery is well opacified with a normal tibioperoneal trunk a normal three-vessel runoff to the ankle. Dorsalis pedis is widely patent. Plantar arch is visualized and appears within normal limits. The left common iliac artery demonstrates soft and hard plaque. There is no visible stenosis. There is normal bifurcation pattern with patent internal and external iliac arteries identified. The left external iliac artery demonstrates eccentric calcified plaque but no stenosis. Patent profunda and SFA arteries present with eccentric plaque noted throughout the course of the left SFA. No occlusion or dissection. Left popliteal arteries patent as is the tibioperoneal trunk. Heavy calcified plaque is seen in the distal tibioperoneal trunk but a normal three-vessel runoff is seen to the ankle with a patent dorsalis pedis and a patent plantar arch. Nonvascular findings: Markedly enlarged prostate gland with lobulated contour and loss of margins. The prostate measures a proximally 7.5 x 8 x 10 cm and appears to indent on the anterior wall of the rectum. There is extensive disease present throughout the posterior bladder wall. Bilateral inguinal lymphadenopathy present with a 6.8 x 3.3 cm lymph node in the right external iliac chain and a lymph node conglomerate along the right pelvic sidewall measuring 5.8 x 2.5 cm. Additional lymph nodes are seen tracking along the pelvis along both iliac chains into the retroperitoneum. There is a large enhancing retroperitoneal lymph node to the left of the aorta measuring 17 mm in short axis. Metastatic disease to bone is present with destroyed appearance of the posterior right 12th rib. Similar findings are noted within the left proximal 11th rib. Abnormal appearance is present in the inferior endplate of L1. Multifocal areas of abnormal signal also noted within additional vertebral bodies. Lytic lesions are present in the iliac crest with a lytic sclerotic lesion seen in the right iliac crest measuring up to 16 mm. The lung bases reveal no suspicious pulmonary nodule effusion or mass. The enhanced appearance of the liver, pancreas and spleen reveal no abnormality. The gallbladder is within normal limits with no wall thickening or pericholecystic fluid. No intra or extrahepatic biliary ductal dilatation is noted. The adrenal glands are normal in caliber. No mass. The kidneys enhance symmetrically. There is mild right hydronephrosis secondary to pelvic lymphadenopathy. The left kidney enhances normally. There is no solid mass. No nephrolithiasis noted. The urinary bladder is slightly displaced anterior superiorly due to prostatic mass with indistinct appearance of the posterior bladder wall concerning for direct invasion of tumor. Lower extremities are normal. There is no mass. There is no muscle atrophy. No joint effusion seen. No acute process identified. CT/CTA Abd w/Runoff W/WO Contrast IMPRESSION: Enlarged prostate gland with lobulated contours and loss of margin and extrapro static extension of disease including the anterior wall of the rectum and posterior wall of the bladder concerning for prostatic n eoplasm. Extensive pelvic and retroperitoneal lymphadenopathy. Lytic sclerotic lesions in the skeleton including a destroyed appearance of the proximal right 12th rib and proximal left 11th rib with lytic lesion seen in the right and left iliac bones and multiple verte bral bodies more significantly at L1. Heavy coronary arterial calcifications and small pericardial effusion. No abdominal aortic aneurysm, dissection or occlusion. Mild peripheral multilevel vascular disease with no occlusion. Three-vessel ru noff present through the level of the ankle. Reading Location: [id number]
[2025-02-03 10:16] VITALS: BP 168/93; PULSE 106; RESP 18; TEMP 36.6; O2SAT 100
[2025-02-03 10:42] LABS: Anion Gap 12 (5-15); BUN 31 mg/dL (4-19); BUN/Creat Ratio 30.5 RATIO (10-20); CRP 83.50 mg/L (0.0-3.0); Calcium,Total 9.3 mg/dL (7.6-11.0); Carbon Dioxide 24.4 mmol/L (21.0-32.0); Chloride 103 mmol/L (98-108); Estimated Creatinine Clearance 75.31 ml/min (50-250); Glucose 106 mg/dL (70-99); Potassium 4.4 mmol/L (3.3-5.1)
--- NOTE | 2025-02-03 13:23 | PCM.PN.HOSP ---
Subjective Subjective 59-year-old male presents to the hospital from a homeless correction because of bilateral lower extremity pain and weakness. He had just gotten out of alf the day before and states that he had been having pain for about a month and a half. There is concern in the emergency room for claudication so CTA with runoff was obtained unfortunately demonstrated significant cancer burden potential from the prostate with metastatic bone lesions and significant bilateral inguinal lymphadenopathy. Objective Data Objective Data Vital Signs: Vital Signs Temp Pulse Resp BP Pulse Ox O2 Del Method 97.8 F 106 H 18 168/93 H 100 Room Air 02/03/25 10:16 02/03/25 10:16 02/03/25 10:16 02/03/25 10:16 02/03/25 10:16 02/03/25 10:16 Oxygen Delivery Method Room Air Weight: 177 lb 14.609 oz Body Mass Index (BMI) 26.2 Intake & Output: Intake and Output for Last 24 Hours 02/02/25 02/03/25 02/04/25 03:59 03:59 03:59 Intake Total 1000 / 1000 Balance 1000 / 1000 Lab / Micro Data 02/03/25 09:42 02/03/25 09:42 Labs: Laboratory Results - last 24 hr 02/03/25 09:42: WBC 9.5, RBC 4.50 L, Hgb 12.2 L, Hct 37.9 L, MCV 84.2, MCH 27.1, MCHC 32.2, RDW Std Deviation 44.1 H, RDW Coeff of Lara 14.4, Plt Count 240, MPV 10.6, Immature Gran % (Auto) 0.600, Neut % (Auto) 68.4, Lymph % (Auto) 16.7 L, [place] % (Auto) 10.5 H, Eos % (Auto) 2.8, Baso % (Auto) 1.0, Absolute Neuts (auto) 6.5, Absolute Lymphs (auto) 1.58, Nucleated RBC % 0, ESR 27 H, Sodium 139, Potassium 4.4, Chloride 103, Carbon Dioxide 24.4, Anion Gap 12, BUN 31 H, Creatinine 1.03, Estim Creat Clear Calc 75.31, Est GFR (MDRD) Non-Af 83, BUN/Creatinine Ratio 30.5 H, Glucose 106 H, Calcium 9.3, C-React Prot Ext Range 83.50 H Radiography Diagnostic Testing: Radiology Impression Abdomen/Pelvis CTA 02/03/25 10:07 IMPRESSION: Enlarged prostate gland with lobulated contours and loss of margin and extraprostatic extension of disease including the anterior wall of the rectum and posterior wall of the bladder concerning for prostatic neoplasm. Extensive pelvic and retroperitoneal lymphadenopathy. Lytic sclerotic lesions in the skeleton including a destroyed appearance of the proximal right 12th rib and proximal left 11th rib with lytic lesion seen in the right and left iliac bones and multiple vertebral bodies more significantly at L1. Heavy coronary arterial calcifications and small pericardial effusion. No abdominal aortic aneurysm, dissection or occlusion. Mild peripheral multilevel vascular disease with no occlusion. Three-vessel runoff present through the level of the ankle. Reading Location: [facility] Assessment & Plan Assessment/Plan (1) Prostate cancer metastatic to bone: PLAN: Plan 1. Bilateral lower extremity pain with likely new metastatic prostate cancer ? I offered him to come into the hospital for physical therapy evaluation and possible placement as well as further workup of his cancer. He refused and states that he wants to go home. I discussed with him that we also do not have radiology coverage or urology coverage this week and that he could also potentially be transferred from the emergency room to a tertiary center for further evaluation and biopsy of his cancer however he refuses to be transferred to another hospital. He is requesting to be discharged back to the homeless correction as he does not want to stay in the hospital. ? He expressed understanding of the risks and benefits of going home and would still like to leave today. I did reiterate that it would be prudent to stay either here for evaluation and transfer to SNF versus going to a tertiary center where workup could be completed this week, however he states again that he would prefer to go home ? Discussed with the emergency room physician to discharge from ER Charges/Coding Visit Charges Office Visits / Consults: [id number] ED Visit; Low/Mod Severity
--- NOTE | 2025-02-03 13:35 | ED.RN ---
pt leaving AMA, signed papers and copy given. going to [facility] and pt states he is able to get around with cane on his own. w/c to waiting room. hospital van to transport.
[2025-02-03 13:45] LABS: PSA,Total - Annual Screen > 5000.00 ng/mL (0.02-4.00)
--- NOTE | 2025-02-03 14:00 | ED.RN ---
Per Lidia at [facility] pt is not appropriate for their homeless senior care. Pt required hands on care this morning, unable to get out of the shower by himself. She states their staff is not equipped to give that level of care.
--- NOTE | 2025-02-03 14:19 | ED.RN ---
hospitalist to admit pt for placement.
[2025-02-03 14:52] VITALS: BP 151/81; PULSE 116; RESP 18; TEMP 36.6; O2SAT 100
--- NOTE | 2025-02-03 15:06 | CM.ED ---
Social Work SW met with patient who initially stated he did not want to admit to [facility], that he wanted to discharge back to [facility] and figure out his treatment from there. SW contacted Lidia at [facility] who stated patient is not able to return to the care home as he requires too much hands on care and is unable to ambulate independently. SW spoke with patient again regarding the benefits of staying at [facility] for additional testing. Patient agreed to stay at this time, but voiced frustration to being unable to return to the care home stating I wasnt able to walk when I got there! Connie Ackerman, SENIOR BENEFITS MANAGER, [employer]
[2025-02-03 16:07] VITALS: BP 152/111; PULSE 108; RESP 20; TEMP 36.7; O2SAT 100; BMI 24.7
--- NOTE | 2025-02-03 16:33 | PCM.HP.STD ---
HPI - General General Date of Admission: 02/03/25 HPI Narrative BELL ROBISON, is a 59 M who presents to the hospital with lower extremity weakness and pain. He denies anything that makes the pain better or worse and he does not feel like the pain is shooting from his back down his legs he says that it is in his ankles and will occasionally shoot up into his groin on the left leg mostly though the right ankle is also sore. If he tries to do a straight leg raise with his left leg it causes pain in his inguinal region unclear if this is related to the significant lymphadenopathy. The ED physician was concerned for vascular compromise given the situation so ordered a CTA of the abdomen and pelvis with runoff it looks like arteries are okay however he does have a very large prostate cancer with bilateral large inguinal lymphadenopathy and bone mets to the spine as well as ribs and left iliac, a PSA was added on which was greater than 5000. Unfortunately we have no interventional radiology or urology for biopsies and I discussed with him if he would prefer to come to this institution to go to a shelter versus going to a higher level of care where they would be able to do biopsies and have evaluation by specialist sooner, he would prefer to stay here. [facility] Home Medications ?Medication ?Instructions ?Recorded ?Last Taken ?Type hydrocodone-acetaminophen 5-325mg 1 tab PO Q4H PRN PRN Pain 2 days 02/03/25 Unknown Rx 5mg-325mg #10 TABLETS Allergy/AdvReac Type Severity Reaction Status Date / Time Penicillins AdvReac Upset Verified 02/03/25 08:55 Stomach Family History (Updated 02/04/25 @ 09:[address] Pacheco Fry MD) Other Heart disease no surgical history Social History Smoking Status: Current every day smoker tobacco type: cigarettes ROS Constitutional Constitutional: Denies chills, fatigue, fever(s) or malaise Eyes Eyes: Denies blurry vision ENT HEENT: Denies headache(s) or nasal discharge Cardiovascular Cardiovascular: Denies chest pain, dyspnea on exertion or syncope Respiratory/Chest Respiratory/Chest: Denies cough, shortness of breath at rest or shortness of breath with exertion Gastrointestinal Gastrointestinal: Denies constipation, diarrhea, nausea or vomiting Genitourinary Genitourinary: Denies dysuria Musculoskeletal Musculoskeletal: Reports other Details: Leg pain Neurologic Neurologic: Denies focal weakness, numbness or tremor(s) Psychiatric Psychiatric: Denies anxiety or depression Vital Signs Vital Signs Vital Signs: 02/03/25 08:53 02/03/25 10:16 02/03/25 14:52 Temperature 98.7 F 97.8 F 97.8 F Temperature Source Oral Oral Pulse Rate 119 H 106 H 116 H Respiratory Rate 18 18 18 Blood Pressure 166/92 H 168/93 H 151/81 H Blood Pressure Mean 116 118 104 Blood Pressure Source Blood Pressure Position Blood Pressure Location Pulse Ox 100 100 100 Oxygen Delivery Method Room Air Room Air 02/03/25 16:07 Temperature 98.1 F Temperature Source Oral Pulse Rate 108 H Respiratory Rate 20 H Blood Pressure 152/111 H Blood Pressure Mean 124 Blood Pressure Source Monitor Blood Pressure Position Semi-Fowlers Blood Pressure Location Right Arm Pulse Ox 100 Oxygen Delivery Method Room Air Weight Weight: 168 lb Body Mass Index (BMI) 24.7 Physical Exam Narrative General: Alert, Oriented x3, Cooperative, No apparent distress HEENT: Atraumatic, PERRLA, EOMI, Normocephalic Oral: Moist Mucosa Neck: Supple, No JVD Lungs: Diminished, Normal air movement, No rhonchi, No wheeze, No rales Cardiovascular: Regular rate, Regular Rhythm, Normal S1, Normal S2, No murmurs Abdomen: Soft, Non Tender, Non-Distended, No Hepato-splenomegaly Extremities: No edema, Capillary Refill Less than 3 Seconds Skin: No rashes, No breakdown Musculoskeletal: No Tenderness to Palpation of Joints or Extremities, pain in his inguinal region with the left straight leg raise no pain with right leg raise no back pain Neurological: No focal neurological deficits, moves all extremities Psych/Mental Status: Normal Affect, Appropriate Results Lab / Micro Data 02/04/25 06:30 02/04/25 06:30 Labs: Laboratory Results - last 24 hr 02/03/25 09:42: WBC 9.5, RBC 4.50 L, Hgb 12.2 L, Hct 37.9 L, MCV 84.2, MCH 27.1, MCHC 32.2, RDW Std Deviation 44.1 H, RDW Coeff of Lara 14.4, Plt Count 240, MPV 10.6, Immature Gran % (Auto) 0.600, Neut % (Auto) 68.4, Lymph % (Auto) 16.7 L, [place] % (Auto) 10.5 H, Eos % (Auto) 2.8, Baso % (Auto) 1.0, Absolute Neuts (auto) 6.5, Absolute Lymphs (auto) 1.58, Nucleated RBC % 0, ESR 27 H, Sodium 139, Potassium 4.4, Chloride 103, Carbon Dioxide 24.4, Anion Gap 12, BUN 31 H, Creatinine 1.03, Estim Creat Clear Calc 75.31, Est GFR (MDRD) Non-Af 83, BUN/Creatinine Ratio 30.5 H, Glucose 106 H, Calcium 9.3, C-React Prot Ext Range 83.50 H 02/03/25 12:41: PSA Screen > 5000.00 H Imaging Radiology Impression Abdomen/Pelvis CTA 02/03/25 10:07 IMPRESSION: Enlarged prostate gland with lobulated contours and loss of margin and extraprostatic extension of disease including the anterior wall of the rectum and posterior wall of the bladder concerning for prostatic neoplasm. Extensive pelvic and retroperitoneal lymphadenopathy. Lytic sclerotic lesions in the skeleton including a destroyed appearance of the proximal right 12th rib and proximal left 11th rib with lytic lesion seen in the right and left iliac bones and multiple vertebral bodies more significantly at L1. Heavy coronary arterial calcifications and small pericardial effusion. No abdominal aortic aneurysm, dissection or occlusion. Mild peripheral multilevel vascular disease with no occlusion. Three-vessel runoff present through the level of the ankle. Reading Location: [facility] Assessment & Plan Assessment/Plan (1) Prostate cancer metastatic to bone: PLAN: Plan 1. Debility and weakness ? Unclear as to where his pain is coming from in his lower extremities ? Continue with oxycodone ? PT/OT 2. Metastatic prostate cancer ? Unfortunate this cannot be worked up this week as we do not have either urology or interventional radiology for biopsies ? PSA is greater than 5000 ? He did indicate that he would like to be worked up further and possibly initiate treatment ? Continue with pain management and make adjustments as necessary 3. Elevated blood pressures ? Unclear if he has a history of hypertension or if this is related to pain. ? Will continue with pain management and if blood pressure has not improved by tomorrow can initiate on oral treatment DVT: Lovenox 75 minutes was spent on direct patient care, including documentation as well as chart review and collaboration with colleagues Charges/Coding Visit Charges Inpatient E&M: 86051 Init Hosp L3
[2025-02-03 20:50] VITALS: BP 151/86; PULSE 100; RESP 18; TEMP 36.6; O2SAT 99
[2025-02-04] VITALS (7 sets, daily range): BP systolic 147–170; BP diastolic 87–92; PULSE 104–110; RESP 16–18; TEMP 36.6–37.1; O2SAT 95–97
[2025-02-04 06:56] LABS: Hematocrit 36.3 % (40-54); Hemoglobin 12.1 g/dL (13.0-16.5); Immature Granulocytes Count 0.060 X10^3/uL (0.0-0.0); Mean Corp Hgb Conc 33.3 g/dL (32-36); Mean Corpuscular Volume 82.7 fL (80-94); Mean Platelet Vol. 10.9 fl (6.2-12.0); NRBC Flagged by Analyzer 0 % (0-5); Platelet Count 215 K/mm3 (150-450); RBC Distribution Width CV 14.3 % (11.6-14.6); RBC Distribution Width SD 43.2 fl (35.1-43.9); Red Blood Count 4.39 M/mm3 (4.6-6.2); White Blood Count 10.3 K/mm3 (4.4-11.0)
[2025-02-04 07:14] LABS: Anion Gap 9 (5-15); BUN 23 mg/dL (4-19); BUN/Creat Ratio 22.5 RATIO (10-20); Calcium,Total 8.8 mg/dL (7.6-11.0); Carbon Dioxide 23.0 mmol/L (21.0-32.0); Chloride 102 mmol/L (98-108); Estimated Creatinine Clearance 76.05 ml/min (50-250); Glucose 97 mg/dL (70-99); Potassium 4.1 mmol/L (3.3-5.1)
[2025-02-04] MEDS: 0.9% Saline Lock 10 ML Syringe IV ×2 (07:59→10:22)
--- NOTE | 2025-02-04 09:07 | PN.HOSP_ITS ---
Subjective Subjective Pain is a bit improved today with the oxycodone Objective Data Objective Data Vital Signs: Vital Signs Temp Pulse Resp BP Pulse Ox O2 Del Method 98.7 F 110 H 16 160/92 H 96 Room Air 02/04/25 07:53 02/04/25 07:54 02/04/25 07:53 02/04/25 07:53 02/04/25 07:53 02/04/25 07:54 Oxygen Delivery Method Room Air Weight: 168 lb Body Mass Index (BMI) 24.7 Intake & Output: Intake and Output for Last 24 Hours 02/03/25 02/04/25 02/05/25 03:59 03:59 03:59 Intake Total 1380 / 1380 Output Total 300 / 300 Balance 1380 / 1380 -300 / -300 Lab / Micro Data 02/04/25 06:30 02/04/25 06:30 Labs: Laboratory Results - last 24 hr 02/03/25 09:42: WBC 9.5, RBC 4.50 L, Hgb 12.2 L, Hct 37.9 L, MCV 84.2, MCH 27.1, MCHC 32.2, RDW Std Deviation 44.1 H, RDW Coeff of Lara 14.4, Plt Count 240, MPV 10.6, Immature Gran % (Auto) 0.600, Neut % (Auto) 68.4, Lymph % (Auto) 16.7 L, M juan % (Auto) 10.5 H, Eos % (Auto) 2.8, Baso % (Auto) 1.0, Absolute Neuts (auto) 6.5, Absolute Lymphs (auto) 1.58, Nucleated RBC % 0, ESR 27 H, Sodium 139, Potassium 4.4, Chloride 103, Carbon Dioxide 24.4, Anion Gap 12, BUN 31 H, Creatinine 1.03, Estim Creat Clear Calc 75.31, Est GFR (MDRD) Non-Af 83, B UN/Creatinine Ratio 30.5 H, Glucose 106 H, Calcium 9.3, C-React Prot Ext Range 83.50 H 02/03/25 12:41: PSA Screen > 5000.00 H 02/04/25 06:30: WBC 10.3, RBC 4.39 L, Hgb 12.1 L, Hct 36.3 L, MCV 82.7, MCH 27.6, MCHC 33.3, RDW Std Deviation 43.2, RDW Coeff of Lara 14.3, Plt Count 215, MPV 10.9, Immature Gran % (Auto) 0.600, Neut % (Auto) 68.5, Lymph % (Auto) 12.5 L, [place] % (Auto) 12.6 H, Eos % (Auto) 4.6, Baso % (Auto) 1.2 H, Absolute Neuts (auto) 7.1, Absolute Lymphs (auto) 1.29, Nucleated RBC % 0, Sodium 135, Potassium 4.1, Chloride 102, Carbon Dioxide 23.0, Anion Gap 9, BUN 23 H, Creatinine 1.02, Estim Creat Clear Calc 76.05, Est GFR (MDRD) Non-Af 84, B UN/Creatinine Ratio 22.5 H, Glucose 97, Calcium 8.8 Radiography Diagnostic Testing: Radiology Impression Abdomen/Pelvis CTA 02/03/25 10:07 IMPRESSION: Enlarged prostate gland with lobulated contours and loss of margin and extraprostatic extension of disease including the anterior wall of the rectum and posterior wall of the bladder concerning for prostatic neoplasm. Extensive pelvic and retroperitoneal lymphadenopathy. Lytic sclerotic lesions in the skeleton including a destroyed appearance of the proximal right 12th rib and proximal left 11th rib with lytic lesion seen in the right and left iliac bones and multiple vertebral bodies more significantly at L1. Heavy coronary arterial calcifications and small pericardial effusion. No abdominal aortic aneurysm, dissection or occlusion. Mild peripheral multilevel vascular disease with no occlusion. Three-vessel runoff present through the level of the ankle. Reading Location: [facility] Physical Exam Narrative General: Alert, Oriented x3, Cooperative, No apparent distress HEENT: Atraumatic, PERRLA, EOMI, Normocephalic Oral: Moist Mucosa Neck: Supple, No JVD Lungs: Diminished, Normal air movement, No rhonchi, No wheeze, No rales Cardiovascular: Regular rate, Regular Rhythm, Normal S1, Normal S2, No murmurs Abdomen: Soft, Non Tender, Non-Distended, No Hepato-splenomegaly Extremities: No edema, Capillary Refill Less than 3 Seconds Skin: No rashes, No breakdown Musculoskeletal: No Tenderness to Palpation of Joints or Extremities, pain in his inguinal region with the left straight leg raise no pain with right leg raise no back pain Neurological: No focal neurological deficits, moves all extremities Psych/Mental Status: Normal Affect, Appropriate Assessment & Plan Assessment/Plan (1) Prostate cancer metastatic to bone: PLAN: Plan 1. Debility and weakness ? Unclear as to where his pain is coming from in his lower extremities ? Continue with oxycodone ? Will trial one-time dose of Toradol see how that helps his pain ? PT/OT ? His inflammatory markers are elevated but there is no sign of infection this is likely due to bony destruction 2. Metastatic prostate cancer ? Unfortunate this cannot be worked up this week as we do not have either urology or interventional radiology for biopsies ? PSA is greater than 5000 ? He did indicate that he would like to be worked up further and possibly initiate treatment ? Continue with pain management and make adjustments as necessary 3. Elevated blood pressures ? Unclear if he has a history of hypertension or if this is related to pain. ? Will start on Coreg 3.125 given his tachycardia as well as his hypertension ? Will obtain a urine analysis may need to add lisinopril DVT: Lovenox Charges/Coding Visit Charges Inpatient E&M: 36759 Subs Hosp L2
--- NOTE | 2025-02-04 12:25 | CASEMGMT ---
Addendum entered by Elsa Sanchez 02/04/25 14:53: DCA delivered SNF list to pt. SW to follow. Pt reports that his daughter is coming in and they will look over the list and make selections. AHSAN Flores Original Note: Social Work- SW met with pt to complete SDOH assessment. SW introduced self and role; pt agreeable to meet. Pt reports he was recently released from [facility] and has no community connections and has been staying at [facility]. SW provided printables for PCP, [place], food resources, transportation, housing, [employer] card. Pt is agreeable to a SNF if needed dependent on therapy evals. SW remains available to follow. AHSAN Flores
--- NOTE | 2025-02-04 14:06 | CASEMGMT ---
Discharge Planning A list of?SNF providers including quality and resource use data and consistent with the patient's preferred geographic region, medical needs, and insurance network was created in [facility] Guide.? This list was provided to the patient. Kelly Smith, Discharge Planning Asst.
[2025-02-05] LABS: Color, Urine Yellow (Yellow); Glucose, Dipstick Normal (Normal); Ketone-Dipstick Negative (Negative); Leukocyte Esterase-Dipstick Negative /ul (Negative); Nitrite-Dipstick Negative (Negative); Occult Blood-Urine 150 /ul (Negative); Protein-Dipstick 30 mg/dl (Negative); Specific Gravity, Urine 1.020 (1.002-1.030); Urine Bilirubin Dipstick Negative (Negative)
[2025-02-05 00:07] LABS: Mucous, Urine 1+ /hpf (<or=2+); Red Blood Cells-Urine 10-25 SEEN /hpf (0-5); Squamous Epithelial Cells - UA 0-5 SEEN /hpf (0-5)
[2025-02-05 03:00] VITALS: BP 167/83; PULSE 115; RESP 16; TEMP 36.3; O2SAT 98
--- NOTE | 2025-02-05 06:45 | NURSING ---
Pt had multiple c/o extreme pain in BLE, rating 11/10. Doctor changed Oxycodone from q4 to q3. Pt still complaining of pain. RN contacting doctor for different pain meds.
[2025-02-05 06:46] LABS: Differential Indicated SCAN CRITERIA MET; Hematocrit 37.2 % (40-54); Hemoglobin 12.1 g/dL (13.0-16.5); Immature Granulocytes Count 0.070 X10^3/uL (0.0-0.0); Mean Corp Hgb Conc 32.5 g/dL (32-36); Mean Corpuscular Volume 83.2 fL (80-94); Mean Platelet Vol. 11.2 fl (6.2-12.0); NRBC Flagged by Analyzer 0 % (0-5); POSITIVE DIFFERENTIAL YES; Platelet Count 239 K/mm3 (150-450); RBC Distribution Width CV 13.9 % (11.6-14.6); RBC Distribution Width SD 42.5 fl (35.1-43.9); Red Blood Count 4.47 M/mm3 (4.6-6.2); White Blood Count 12.3 K/mm3 (4.4-11.0)
[2025-02-05 07:07] LABS: Anion Gap 12 (5-15); BUN 27 mg/dL (4-19); BUN/Creat Ratio 28.0 RATIO (10-20); Calcium,Total 9.0 mg/dL (7.6-11.0); Carbon Dioxide 21.0 mmol/L (21.0-32.0); Chloride 98 mmol/L (98-108); Estimated Creatinine Clearance 81.66 ml/min (50-250); Glucose 116 mg/dL (70-99); Potassium 3.9 mmol/L (3.3-5.1)
[2025-02-05 07:38] VITALS: BP 164/95; PULSE 109; RESP 18; TEMP 36.6; O2SAT 95
[2025-02-05] MEDS: morphine SR 15 MG Tablet PO ×2 (10:40→22:17)
--- NOTE | 2025-02-05 11:09 | PN.HOSP_ITS ---
Subjective Subjective Doing well, no issues overnight, pain is improved a little Objective Data Objective Data Vital Signs: Vital Signs Temp Pulse Resp BP Pulse Ox O2 Del Method 97.8 F 109 H 18 164/95 H 95 Room Air 02/05/25 07:38 02/05/25 07:38 02/05/25 07:38 02/05/25 07:38 02/05/25 07:38 02/05/25 07:38 Oxygen Delivery Method Room Air Weight: 168 lb Body Mass Index (BMI) 24.7 Intake & Output: Intake and Output for Last 24 Hours 02/04/25 02/05/25 02/06/25 03:59 03:59 03:59 Intake Total 1380 / 1380 600 / 600 Output Total 1950 / 1950 200 / 200 Balance 1380 / 1380 -1350 / -1350 -200 / -200 Lab / Micro Data 02/05/25 06:10 02/05/25 06:10 Labs: Laboratory Results - last 24 hr 02/04/25 23:40: Urine Color Yellow, Urine Clarity Clear, Urine pH 5.0, Ur Specific [place] 1.020, Urine Protein 30 H, Urine Glucose (UA) Normal, Urine Ketones Negative, Urine Occult Blood 150 H, Urine Nitrite Negative, Urine Bilirubin Negative, Urine Urobilinogen Normal, Ur Leukocyte Esterase Negative, Urine RBC 10-25 SEEN, Urine WBC 0-5 SEEN, Ur Squamous Epith Cells 0-5 SEEN, Urine Bacteria 1+, Urine Mucus 1+ 02/05/25 06:10: WBC 12.3 H, RBC 4.47 L, Hgb 12.1 L, Hct 37.2 L, MCV 83.2, MCH 27.1, MCHC 32.5, RDW Std Deviation 42.5, RDW Coeff of Lara 13.9, Plt Count 239, MPV 11.2, Immature Gran % (Auto) 0.600, Neut % (Auto) 71.0 H, Lymph % (Auto) 11.2 L, [place] % (Auto) 13.8 H, Eos % (Auto) 2.3, Baso % (Auto) 1.1 H, Absolute Neuts (auto) 8.7 H, Absolute Lymphs (auto) 1.37, Nucleated RBC % 0, Sodium 132 L , Potassium 3.9, Chloride 98, Carbon Dioxide 21.0, Anion Gap 12, BUN 27 H, Creatinine 0.95, Estim Creat Clear Calc 81.66, Est GFR (MDRD) Non-Af 91, B UN/Creatinine Ratio 28.0 H, Glucose 116 H, Calcium 9.0 Social Homelessness:: Sheltered Physical Exam Narrative General: Alert, Oriented x3, Cooperative, No apparent distress HEENT: Atraumatic, PERRLA, EOMI, Normocephalic Oral: Moist Mucosa Neck: Supple, No JVD Lungs: Diminished, Normal air movement, No rhonchi, No wheeze, No rales Cardiovascular: Regular rate, Regular Rhythm, Normal S1, Normal S2, No murmurs Abdomen: Soft, Non Tender, Non-Distended, No Hepato-splenomegaly Extremities: No edema, Capillary Refill Less than 3 Seconds Skin: No rashes, No breakdown Musculoskeletal: No Tenderness to Palpation of Joints or Extremities, pain in his inguinal region with the left straight leg raise no pain with right leg raise no back pain Neurological: No focal neurological deficits, moves all extremities Psych/Mental Status: Normal Affect, Appropriate Assessment & Plan Assessment/Plan (1) Prostate cancer metastatic to bone: PLAN: Plan 1. Debility and weakness ? Unclear as to where his pain is coming from in his lower extremities, potentially from compression with his inguinal lymphadenopathy ?Pain management changes overnight with morphine 15 mg p.o. twice daily and oxycodone was changed to every 3 hours ? PT/OT planning for possible placement ? His inflammatory markers are elevated but there is no sign of infection this is likely due to bony destruction 2. Metastatic prostate cancer ? Unfortunate this cannot be worked up this week as we do not have either urology or interventional radiology for biopsies ? PSA is greater than 5000 ? He did indicate that he would like to be worked up further and possibly initiate treatment ? Continue with pain management and make adjustments as necessary ? If he is still here on Sunday can plan for IR biopsy 3. Elevated blood pressures ? Unclear if he has a history of hypertension or if this is related to pain. ?Will increase beta-richard dosage and start on lisinopril as he does have proteinuria DVT: Lovenox Charges/Coding Visit Charges Inpatient E&M: 00722 Subs Hosp L2
[2025-02-05 11:29] VITALS: BP 136/84; PULSE 112; RESP 16; TEMP 36.8; O2SAT 100
[2025-02-05 16:00] VITALS: BP 154/93; PULSE 106; RESP 15; TEMP 36.7; O2SAT 94
[2025-02-05 22:13] VITALS: BP 144/79; PULSE 98; RESP 22; TEMP 36.7; O2SAT 96
--- NOTE | 2025-02-05 22:38 | PCM.HOSP.N ---
Hospitalist Note Pt's daughter came in and swayed him to seek more cancer treatment, to not give up yet. Pt expresses desire to make himself a FULL CODE at this time. Order entered.
[2025-02-06 02:27] VITALS: BP 148/75; PULSE 92; RESP 16; TEMP 37; O2SAT 96
[2025-02-06 05:03] VITALS: BP 149/84; PULSE 95; RESP 18; TEMP 36.7; O2SAT 96
[2025-02-06 05:39] LABS: Hematocrit 34.4 % (40-54); Hemoglobin 11.6 g/dL (13.0-16.5); Immature Granulocytes Count 0.060 X10^3/uL (0.0-0.0); Mean Corp Hgb Conc 33.7 g/dL (32-36); Mean Corpuscular Volume 83.3 fL (80-94); Mean Platelet Vol. 10.8 fl (6.2-12.0); NRBC Flagged by Analyzer 0 % (0-5); POSITIVE DIFFERENTIAL YES; Platelet Count 215 K/mm3 (150-450); RBC Distribution Width CV 14.0 % (11.6-14.6); RBC Distribution Width SD 43.0 fl (35.1-43.9); Red Blood Count 4.13 M/mm3 (4.6-6.2); White Blood Count 10.5 K/mm3 (4.4-11.0)
[2025-02-06 05:51] LABS: Differential Indicated SCAN CRITERIA MET
[2025-02-06 06:15] LABS: Anion Gap 11 (5-15); BUN 24 mg/dL (4-19); BUN/Creat Ratio 23.9 RATIO (10-20); Calcium,Total 8.5 mg/dL (7.6-11.0); Carbon Dioxide 23.9 mmol/L (21.0-32.0); Chloride 99 mmol/L (98-108); Estimated Creatinine Clearance 77.57 ml/min (50-250); Glucose 110 mg/dL (70-99); Potassium 4.0 mmol/L (3.3-5.1)
[2025-02-06 06:56] LABS: Differential Comment SCANNED
[2025-02-06 07:28] VITALS: BP 146/86; PULSE 98; RESP 14; TEMP 36.6; O2SAT 97
--- NOTE | 2025-02-06 08:13 | PN.HOSP_ITS ---
Subjective Subjective No issues overnight, pain is improving Objective Data Objective Data Vital Signs: Vital Signs Temp Pulse Resp BP Pulse Ox O2 Del Method 97.9 F 98 14 146/86 H 97 Room Air 02/06/25 07:28 02/06/25 07:28 02/06/25 07:28 02/06/25 07:28 02/06/25 07:28 02/06/25 07:28 Oxygen Delivery Method Room Air Weight: 168 lb Body Mass Index (BMI) 24.7 Intake & Output: Intake and Output for Last 24 Hours 02/05/25 02/06/25 02/07/25 03:59 03:59 03:59 Intake Total 600 / 600 700 / 700 Output Total 1950 / 1950 1350 / 1350 100 / 100 Balance -1350 / -1350 -650 / -650 -100 / -100 Lab / Micro Data 02/06/25 04:48 02/06/25 04:48 Labs: Laboratory Results - last 24 hr 02/06/25 04:48: WBC 10.5, RBC 4.13 L, Hgb 11.6 L, Hct 34.4 L, MCV 83.3, MCH 28.1, MCHC 33.7, RDW Std Deviation 43.0, RDW Coeff of Lara 14.0, Plt Count 215, MPV 10.8, Immature Gran % (Auto) 0.600, Neut % (Auto) 63.4, Lymph % (Auto) 15.5 L, [place] % (Auto) 15.4 H, Eos % (Auto) 4.2, Baso % (Auto) 0.9, Absolute Neuts (auto) 6.7, Absolute Lymphs (auto) 1.63, Nucleated RBC % 0, Differential Comment SCANNED, Sodium 134, Potassium 4.0, Chloride 99, Carbon Dioxide 23.9, Anion Gap 11, BUN 24 H, Creatinine 1.00, Estim Creat Clear Calc 77.57, Est GFR (MDRD) Non- Af 86, BUN/Creatinine Ratio 23.9 H, Glucose 110 H, Calcium 8.5 Social Homelessness:: Sheltered Physical Exam Narrative General: Alert, Oriented x3, Cooperative, No apparent distress HEENT: Atraumatic, PERRLA, EOMI, Normocephalic Oral: Moist Mucosa Neck: Supple, No JVD Lungs: Diminished, Normal air movement, No rhonchi, No wheeze, No rales Cardiovascular: Regular rate, Regular Rhythm, Normal S1, Normal S2, No murmurs Abdomen: Soft, Non Tender, Non-Distended, No Hepato-splenomegaly Extremities: No edema, Capillary Refill Less than 3 Seconds Skin: No rashes, No breakdown Musculoskeletal: No Tenderness to Palpation of Joints or Extremities, pain in his inguinal region with the left straight leg raise no pain with right leg raise no back pain?improving Neurological: No focal neurological deficits, moves all extremities Psych/Mental Status: Normal Affect, Appropriate Assessment & Plan Assessment/Plan (1) Prostate cancer metastatic to bone: PLAN: Plan 1. Debility and weakness ? Unclear as to where his pain is coming from in his lower extremities, potentially from compression with his inguinal lymphadenopathy ? Continue with current pain management regimen ? PT/OT planning for possible placement ? His inflammatory markers are elevated but there is no sign of infection this is likely due to bony destruction 2. Metastatic prostate cancer ? Unfortunate this cannot be worked up this week as we do not have either urology or interventional radiology for biopsies ? PSA is greater than 5000 ? He did indicate that he would like to be worked up further and possibly initiate treatment ? Continue with pain management and make adjustments as necessary ? If he is still here on Sunday can plan for IR biopsy 3. Elevated blood pressures ? Unclear if he has a history of hypertension or if this is related to pain. ? Continue with Coreg and lisinopril DVT: Lovenox Charges/Coding Visit Charges Inpatient E&M: 63769 Subs Hosp L2
[2025-02-06] MEDS: morphine SR 15 MG Tablet PO ×2 (10:10→20:28)
--- NOTE | 2025-02-06 12:51 | CASEMGMT ---
Social Work- SW met with pt to obtain choices for SNF. Pt selected [facility] as FOC. Pt reports that he has no other opinions and would go where ever. SW notified DCA of referral request. SW to follow up with pt following determination. AHSAN Flores
--- NOTE | 2025-02-06 13:05 | CASEMGMT ---
Addendum entered by Kelly Smith 02/09/25 09:10: [facility] has declined. SW updated. Original Note: Discharge Planning Referral sent via [facility] to [facility]. Kelly Smith DC Planning Asst.
[2025-02-06 16:00] VITALS: BP 132/78; PULSE 95; RESP 15; TEMP 36.7; O2SAT 96
--- NOTE | 2025-02-06 17:30 | NURSING ---
updated daughter andrew on plan to hopefully dc to [facility].
[2025-02-06 20:21] VITALS: BP 112/63; PULSE 97; RESP 20; TEMP 36.9; O2SAT 97
[2025-02-07 06:00] VITALS: BP 108/70; PULSE 96; RESP 16; TEMP 36.9; O2SAT 96
[2025-02-07 06:05] LABS: Anion Gap 11 (5-15); BUN 25 mg/dL (4-19); BUN/Creat Ratio 26.5 RATIO (10-20); Calcium,Total 8.4 mg/dL (7.6-11.0); Carbon Dioxide 23.6 mmol/L (21.0-32.0); Chloride 99 mmol/L (98-108); Estimated Creatinine Clearance 83.41 ml/min (50-250); Glucose 120 mg/dL (70-99); Potassium 4.1 mmol/L (3.3-5.1)
--- NOTE | 2025-02-07 07:43 | PCM.PN.HOSP ---
Subjective Subjective Pain is managed Objective Data Objective Data Vital Signs: Vital Signs Temp Pulse Resp BP Pulse Ox O2 Del Method 98.4 F 96 16 108/70 96 Room Air 02/07/25 06:00 02/07/25 06:00 02/07/25 06:00 02/07/25 06:00 02/07/25 06:00 02/07/25 06:00 Oxygen Delivery Method Room Air Weight: 168 lb Body Mass Index (BMI) 24.7 Intake & Output: Intake and Output for Last 24 Hours 02/06/25 02/07/25 02/08/25 03:59 03:59 03:59 Intake Total 700 / 700 Output Total 1350 / 1350 925 / 925 Balance -650 / -650 -925 / -925 Lab / Micro Data 02/06/25 04:48 02/07/25 04:37 Labs: Laboratory Results - last 24 hr 02/07/25 04:37: Sodium 134, Potassium 4.1, Chloride 99, Carbon Dioxide 23.6, Anion Gap 11, BUN 25 H, Creatinine 0.93, Estim Creat Clear Calc 83.41, Est GFR (MDRD) Non-Af 93, BUN/Creatinine Ratio 26.5 H, Glucose 120 H, Calcium 8.4 Social Homelessness:: Sheltered Physical Exam Narrative General: Alert, Oriented x3, Cooperative, No apparent distress HEENT: Atraumatic, PERRLA, EOMI, Normocephalic Oral: Moist Mucosa Neck: Supple, No JVD Lungs: Diminished, Normal air movement, No rhonchi, No wheeze, No rales Cardiovascular: Regular rate, Regular Rhythm, Normal S1, Normal S2, No murmurs Abdomen: Soft, Non Tender, Non-Distended, No Hepato-splenomegaly Extremities: No edema, Capillary Refill Less than 3 Seconds Skin: No rashes, No breakdown Musculoskeletal: No Tenderness to Palpation of Joints or Extremities, pain in his inguinal region with the left straight leg raise no pain with right leg raise no back pain?improving Neurological: No focal neurological deficits, moves all extremities Psych/Mental Status: Normal Affect, Appropriate Assessment & Plan Assessment/Plan (1) Prostate cancer metastatic to bone: PLAN: Plan 1. Debility and weakness ? Unclear as to where his pain is coming from in his lower extremities, potentially from compression with his inguinal lymphadenopathy ? Continue with current pain management regimen ? PT/OT planning for possible placement ? His inflammatory markers are elevated but there is no sign of infection this is likely due to bony destruction 2. Metastatic prostate cancer ? Unfortunate this cannot be worked up this week as we do not have either urology or interventional radiology for biopsies ? PSA is greater than 5000 ? He did indicate that he would like to be worked up further and possibly initiate treatment ? Continue with pain management and make adjustments as necessary ?Will plan for CT-guided biopsy on Sunday as were pending pre-CERT 3. Elevated blood pressures ? Unclear if he has a history of hypertension or if this is related to pain. ? Continue with Coreg and lisinopril ? Renal function appears to be stable with lisinopril increase in pressures have normalized DVT: Lovenox Charges/Coding Visit Charges Inpatient E&M: 99658 Subs Hosp L2
[2025-02-07] MEDS: morphine SR 15 MG Tablet PO ×2 (07:49→23:28)
[2025-02-07 08:29] LABS: Cholesterol 144 mg/dL (<=200); Low Density Lipoprotein Calc. 93 mg/dL; Triglycerides 100 mg/dL; Very Low Density Lipoprotein 20 mg/dL (5-40); cholesterol:hdl ratio screen 4.50
[2025-02-07 08:59] VITALS: BP 121/77; PULSE 93; RESP 16; TEMP 36.6; O2SAT 100
[2025-02-07 11:34] VITALS: BP 113/66; PULSE 88; RESP 16; TEMP 36.6; O2SAT 98
[2025-02-07 15:19] VITALS: BP 112/64; PULSE 104; RESP 16; TEMP 36.6; O2SAT 99
[2025-02-07] MEDS: Nicotine (PBKC) 21 MG Patch TD (15:47)
[2025-02-07 20:11] VITALS: BP 136/69; PULSE 110; RESP 18; TEMP 36.9; O2SAT 98
[2025-02-08 02:50] VITALS: BP 145/84; PULSE 95; RESP 18; TEMP 36.8; O2SAT 100
[2025-02-08 05:31] LABS: Anion Gap 9 (5-15); BUN 27 mg/dL (4-19); BUN/Creat Ratio 30.6 RATIO (10-20); Calcium,Total 8.6 mg/dL (7.6-11.0); Carbon Dioxide 26.1 mmol/L (21.0-32.0); Chloride 98 mmol/L (98-108); Estimated Creatinine Clearance 88.15 ml/min (50-250); Glucose 117 mg/dL (70-99); Potassium 4.5 mmol/L (3.3-5.1)
--- NOTE | 2025-02-08 08:24 | PCM.PN.HOSP ---
Subjective Subjective No issues overnight, pain is controlled Objective Data Objective Data Vital Signs: Vital Signs Temp Pulse Resp BP Pulse Ox O2 Del Method 98.2 F 95 18 145/84 H 100 Room Air 02/08/25 02:50 02/08/25 02:50 02/08/25 02:50 02/08/25 02:50 02/08/25 02:50 02/08/25 02:50 Oxygen Delivery Method Room Air Weight: 168 lb Body Mass Index (BMI) 24.7 Intake & Output: Intake and Output for Last 24 Hours 02/07/25 02/08/25 02/09/25 03:59 03:59 03:59 Intake Total 1580 / 1580 580 / 580 Output Total 925 / 925 1620 / 1620 300 / 300 Balance -925 / -925 -40 / -40 280 / 280 Lab / Micro Data 02/06/25 04:48 02/08/25 03:59 Labs: Laboratory Results - last 24 hr 02/07/25 04:37: Triglycerides 100, Cholesterol 144, LDL Cholesterol, Calc 93, VLDL Cholesterol 20, HDL Cholesterol 32 L, Cholesterol/HDL Ratio 4.50 02/08/25 03:59: Sodium 133, Potassium 4.5, Chloride 98, Carbon Dioxide 26.1, Anion Gap 9, BUN 27 H, Creatinine 0.88, Estim Creat Clear Calc 88.15, Est GFR (MDRD) Non-Af 98, BUN/Creatinine Ratio 30.6 H, Glucose 117 H, Calcium 8.6 Social Homelessness:: Sheltered Physical Exam Narrative General: Alert, Oriented x3, Cooperative, No apparent distress HEENT: Atraumatic, PERRLA, EOMI, Normocephalic Oral: Moist Mucosa Neck: Supple, No JVD Lungs: Diminished, Normal air movement, No rhonchi, No wheeze, No rales Cardiovascular: Regular rate, Regular Rhythm, Normal S1, Normal S2, No murmurs Abdomen: Soft, Non Tender, Non-Distended, No Hepato-splenomegaly Extremities: No edema, Capillary Refill Less than 3 Seconds Skin: No rashes, No breakdown Musculoskeletal: No Tenderness to Palpation of Joints or Extremities, pain in his inguinal region with the left straight leg raise no pain with right leg raise no back pain?improving Neurological: No focal neurological deficits, moves all extremities Psych/Mental Status: Normal Affect, Appropriate Assessment & Plan Assessment/Plan (1) Prostate cancer metastatic to bone: PLAN: Plan 1. Debility and weakness ? Continue with current pain management regimen will make adjustments as necessary ? PT/OT planning for possible placement ? His inflammatory markers are elevated but there is no sign of infection this is likely due to bony destruction 2. Metastatic prostate cancer ? Unfortunate this cannot be worked up this week as we do not have either urology or interventional radiology for biopsies ? PSA is greater than 5000 ? He did indicate that he would like to be worked up further and possibly initiate treatment ? Continue with pain management and make adjustments as necessary ?Will plan for CT-guided biopsy on Sunday as we're pending pre-CERT 3. Elevated blood pressures ? Unclear if he has a history of hypertension or if this is related to pain. ? Continue with Coreg and lisinopril ? Renal function appears to be stable with lisinopril increase in pressures have normalized DVT: Lovenox Charges/Coding Visit Charges Inpatient E&M: 27267 Subs Hosp L2
[2025-02-08 09:09] VITALS: BP 159/87; PULSE 105; RESP 16; TEMP 36.7; O2SAT 98
[2025-02-08] MEDS: morphine SR 15 MG Tablet PO ×2 (09:16→22:13)
[2025-02-08] MEDS: Nicotine (PBKC) 21 MG Patch TD (09:21)
[2025-02-08] MEDS: Senna/Docusate Sodium 1 Tablet 2 TABLET PO ×2 (11:12→22:13)
[2025-02-08 15:15] VITALS: BP 151/89; PULSE 100; RESP 16; TEMP 37.2; O2SAT 98
[2025-02-08 20:10] VITALS: BP 160/81; PULSE 95; RESP 18; TEMP 36.9; O2SAT 98
[2025-02-09 02:27] VITALS: BP 141/72; PULSE 97; RESP 16; TEMP 36.8; O2SAT 97
[2025-02-09 07:12] LABS: Hematocrit 37.0 % (40-54); Hemoglobin 12.0 g/dL (13.0-16.5); Immature Granulocytes Count 0.050 X10^3/uL (0.0-0.0); Mean Corp Hgb Conc 32.4 g/dL (32-36); Mean Corpuscular Volume 83.0 fL (80-94); Mean Platelet Vol. 10.9 fl (6.2-12.0); NRBC Flagged by Analyzer 0 % (0-5); Platelet Count 320 K/mm3 (150-450); RBC Distribution Width CV 13.8 % (11.6-14.6); RBC Distribution Width SD 41.8 fl (35.1-43.9); Red Blood Count 4.46 M/mm3 (4.6-6.2); White Blood Count 9.3 K/mm3 (4.4-11.0)
[2025-02-09 07:28] LABS: Prothrombin Time (Protime)PT. 15.6 SECONDS (11.7-14.9)
[2025-02-09 07:29] VITALS: BP 144/83; PULSE 97; RESP 14; TEMP 36.7; O2SAT 96
[2025-02-09] MEDS: Senna/Docusate Sodium 1 Tablet 2 TABLET PO ×2 (07:33→21:05)
[2025-02-09 07:47] LABS: Anion Gap 9 (5-15); BUN 20 mg/dL (4-19); BUN/Creat Ratio 23.5 RATIO (10-20); Calcium,Total 9.0 mg/dL (7.6-11.0); Carbon Dioxide 26.7 mmol/L (21.0-32.0); Chloride 101 mmol/L (98-108); Estimated Creatinine Clearance 90.20 ml/min (50-250); Glucose 111 mg/dL (70-99); Potassium 4.6 mmol/L (3.3-5.1)
--- NOTE | 2025-02-09 08:02 | PCM.PN.HOSP ---
Reason for Visit Chief Complaint: Lower extremity pain and weakness Subjective Subjective Unfortunately I was notified by radiology that they will be unable to do CT-guided biopsy today due to location. Will need to pursue outpatient prostate biopsy. Discussed with patient he is amenable. I also discussed with him palliative care services and they will evaluate him later today. He was amenable to this as well. States his pain is present but well-controlled with current regimen. I did instruct him that we would send him with prescriptions to SNF with medications at the time of discharge. He was concerned that his pain may not be as well-controlled after discharge. Objective Data Objective Data Vital Signs: Vital Signs Temp Pulse Resp BP Pulse Ox O2 Del Method 98.1 F 97 14 144/83 H 96 Room Air 02/09/25 07:29 02/09/25 07:29 02/09/25 07:29 02/09/25 07:29 02/09/25 07:29 02/09/25 07:29 Oxygen Delivery Method Room Air Weight: 76.204 kg Body Mass Index (BMI) 24.7 Intake & Output: Intake and Output for Last 24 Hours 02/07/25 02/08/25 02/09/25 23:59 23:59 23:59 Intake Total 1580 / 1580 580 / 580 Output Total 1220 / 1220 700 / 1100 600 / 600 Balance 360 / 360 -120 / -520 -600 / -600 Lab / Micro Data 02/09/25 06:29 02/09/25 06:29 Labs: Laboratory Results - last 24 hr 02/09/25 06:29: WBC 9.3, RBC 4.46 L, Hgb 12.0 L, Hct 37.0 L, MCV 83.0, MCH 26.9 L, MCHC 32.4, RDW Std Deviation 41.8, RDW Coeff of Lara 13.8, Plt Count 320, MPV 10.9, Immature Gran % (Auto) 0.500, Neut % (Auto) 66.0, Lymph % (Auto) 14.3 L, [place] % (Auto) 13.7 H, Eos % (Auto) 4.2, Baso % (Auto) 1.3 H, Absolute Neuts (auto) 6.1, Absolute Lymphs (auto) 1.33, Nucleated RBC % 0, PT 15.6 H, INR 1.2, Sodium 136, Potassium 4.6, Chloride 101, Carbon Dioxide 26.7, Anion Gap 9, BUN 20 H, Creatinine 0.86, Estim Creat Clear Calc 90.20, Est GFR (MDRD) Non-Af 98, BUN/Creatinine Ratio 23.5 H, Glucose 111 H, Calcium 9.0 Social Homelessness:: Sheltered Physical Exam Const alert, oriented x3, no apparent distress and average body habitus; Negative for healthy appearing Constitutional Narrative: Upper middle-aged, white male, sitting up in bed, currently appears comfortable, watching television, appears older than stated age, does not appear toxic HEENT head/scalp atraumatic and moist oral mucous membranes HEENT Narrative: Dentition is poor, Mallampati is 2, no thrush Neck supple Neck Narrative: Trachea midline Resp normal respiratory effort, no retractions, no use of accessory muscles and clear to auscultation bilaterally Resp Narrative: Diminished but clear Auscultation: Negative for rales, rhonchi or wheezes Cardio regular rate, regular rhythm, S1 normal heart sound, S2 normal heart sound, no murmurs, no rub, no gallops and no clicks GI normal to inspection, nondistended, normoactive bowel sounds, soft to palpation and non-tender Extremity no clubbing, cyanosis or edema Extremity Narrative: 2+ pedal and radial pulses Neuro moves all extremities and no focal motor deficits Speech: speech normal Psych Psych Narrative: Affect is slightly flat but appropriate for current situation, patient makes good eye contact, interacts appropriately Assessment & Plan Assessment/Plan (1) Prostate cancer metastatic to bone: (2) Leg pain: QUALIFIERS: Laterality: left Qualified Code(s): M79.605 - Pain in left leg PLAN: Plan Generalized weakness and debility/lower extremity pain secondary to metastatic prostate cancer - Continue ongoing pain regimen with as needed oxycodone - Scheduled Tylenol - Will start Celebrex 100 twice daily to assist with bone pain -Will add PPI daily for GI prophylaxis with NSAIDs - Continue PT/OT - Plan is for placement at [facility] once approved by insurance Metastatic prostate cancer - PSA 5000 on presentation - Unable to perform bone biopsy via IR - Patient is interested in treatment if at all possible - Will plan to discharge to skilled facility and have follow-up in the outpatient office [facility], as we have no inpatient urology available at this time - Discussed with patient - Palliative care consultation for assistance with discharge follow-up and pain management Hypertension - Patient has had persistently elevated blood pressure with requiring the initiation of antihypertensives - Continue carvedilol - Continue lisinopril - Blood pressure control is much improved Acute anemia - New on presentation and mild - No signs of bleeding - Hemoglobin is stable - No further workup at this time as this is extremely mild in nature with a current hemoglobin of 12. Tobacco abuse - Recommend cessation - Continue nicotine patch Marijuana use - Recommend cessation - Risks and benefits were discussed with patient by palliative care DVT prophylaxis - Continue enoxaparin CODE STATUS - Full code was verified at the time of admission Charges/Coding Visit Charges Inpatient E&M: 20152 Subs Hosp L2
[2025-02-09] MEDS: morphine SR 15 MG Tablet PO ×2 (09:37→21:04)
--- NOTE | 2025-02-09 09:37 | CASEMGMT ---
Addendum entered by Kelly Smith 02/09/25 14:41: [facility] notified that they are foc and requested to submit for precert. [facility] updated and asked to cancel referral. Addendum entered by Kelly Smith 02/09/25 14:07: [facility] accepted. [facility], and [facility] declined. SW updated. Original Note: Discharge Planning Pt notified that [facility] has declined. He requested referral be sent to [facility], [facility], [facility], [facility], and [facility]. SW updated and referrals sent. Kelly Smith DC Planning Asst.
--- NOTE | 2025-02-09 09:51 | NURSING ---
pt aware his ct scan was cancelled and may now resume diet. eliana in dietary aware to send breakfast tray
--- NOTE | 2025-02-09 12:29 | CON.PCM.PA_ITS ---
[facility] ?Medication ?Instructions ?Recorded ?Last Taken ?Type hydrocodone-acetaminophen 5-325mg 1 tab PO Q4H PRN PRN Pain 2 days 02/03/25 Unknown Rx 5mg-325mg #10 TABLETS Allergy/AdvReac Type Severity Reaction Status Date / Time Penicillins AdvReac Upset Verified 02/03/25 08:55 Stomach Family History Other Heart disease Surgical History no surgical history Social History Smoking Status: Current every day smoker tobacco type: cigarettes Homelessness:: Sheltered ROS Constitutional Constitutional: Reports anorexia, body ache(s) and poor appetite Eyes Eyes: Reports systems reviewed and no addt'l complaints, except as documented ENT HEENT: Reports systems reviewed and no addt'l complaints, except as documented Cardiovascular Cardiovascular: Reports leg edema Respiratory/Chest Respiratory/Chest: Reports systems reviewed and no addt'l complaints, except as documented Gastrointestinal Gastrointestinal: Reports constipation Genitourinary Genitourinary: Reports systems reviewed and no addt'l complaints, except as documented Musculoskeletal Musculoskeletal: Reports difficulty walking, extremity pain, joint pain, joint stiffness and joint swelling Integumentary Integumentary: Reports systems reviewed and no addt'l complaints, except as documented Neurologic Neurologic: Reports systems reviewed and no addt'l complaints, except as documented Psychiatric Psychiatric: Reports systems reviewed and no addt'l complaints, except as documented Endocrine Endocrinology: Reports systems reviewed and no addt'l complaints, except as documented Hematologic/Lymphatic Hematologic/Lymphatic: Reports systems reviewed and no addt'l complaints, except as documented Allergic/Immunologic Allergic/Immunologic: Reports systems reviewed and no addt'l complaints, except as documented Physical Exam Const alert and oriented x3 General Appearance: cooperative HEENT normocephalic Eyes PERRL Lymph Lymphatic: lymphedema Resp normal respiratory effort, normal air movement and clear to auscultation bilaterally Cardio S1 normal heart sound and S2 normal heart sound Rhythm: abnormal rhythm GI normal to inspection, nondistended, normoactive bowel sounds and soft to palpation Extremity normal capillary refill Skin no rashes or lesions noted Neuro no focal motor deficits and no sensory deficits noted Speech: speech normal Psych affect normal Charges/Coding Multi Select Codes Palliative Care Palliative Care: 33924 New Pt Consult 80+ min HPI Current admission Current Code Status: full code Associated Diagnosis: metastatic prostate CA Consult Data Date of Consult: 02/09/25 Location of consult: [place] Reason for referral: goals of care Referral source: Dr. Boyer Palliative care diagnosis (Summary list): metastatic prostate CA Palliative care services/treatment (Accepted, as consult): accepted HPI Narrative HPI Narrative: PAIN ASSESSMENT Location: [L knee ] Quality: [throbbing ] Severity/Quantity: [ 11/19] Timing/Frequency: [ constant ] Context: [ worse with walking ] Factors that make it better/worse: [ walking Associated signs & symptoms: [ warm to the touch ] Prior to meeting with the patient, Gustavo, in his room, I reviewed labs, they are to the studies and documentation. I then met with the patient and his friend in his room. Gustavo had just gotten done going for a walk. He did utilize a cane and his gait was slow and shuffling in nature. I introduced myself and the concept of palliative care in which she voluntarily excepted our services. I reviewed with Gustavo what he knew about his disease process and he which she was able to verbalize that he knew he had prostate cancer with metastasis. We discussed his need for a biopsy in order to have a treatment plan going forward.. He stated understanding. Thanks friend that I got his daughter on the phone, Amna. I was able to meet with her as well and answer all questions. We then discussed Gustavo's goals of care going forward in which he stated that he wants to keep his cancer at bay as long as possible. He does state understanding that he will need to follow-up with urology for biopsy as he was unable to obtain one today related to the complexity. Per documentation, Gustavo is unable to return to the [facility] because of the complexity of his current medical diagnosis. He states that he was released from long term a week ago today. He is hoping to go to a nursing facility for rehab. I then introduced the concept of outpatient palliative care in which he stated interest as he does have some uncontrolled symptoms related to pain and constipation from an outpatient standpoint. When I asked Gustavo if he had any questions he stated yeah can I go smoke a cigarette? I did remind him that this is a smoke-free campus in which he stated oh yeah. We then discussed smoking cessation and how it could benefit him going forward in which she stated understanding. He then asked what about marijuana? I did give him information about the benefits versus burdens of marijuana usage in the setting of cancer. He stated understanding. He currently denies shortness of breath, dizziness or chest pain. I did update Dr. Boyer as well as CM/SW. All questions were answered that family and patient. per hospitalist: GUSTAVO ROBISON, is a 59 M who presents to the hospital with lower extremity weakness and pain. He denies anything that makes the pain better or worse and he does not feel like the pain is shooting from his back down his legs he says that it is in his ankles and will occasionally shoot up into his groin on the left leg mostly though the right ankle is also sore. If he tries to do a straight leg raise with his left leg it causes pain in his inguinal region unclear if this is related to the significant lymphadenopathy. The ED physician was concerned for vascular compromise given the situation so ordered a CTA of the abdomen and pelvis with runoff it looks like arteries are okay however he does have a very large prostate cancer with bilateral large inguinal lymphadenopathy and bone mets to the spine as well as ribs and left iliac, a PSA was added on which was greater than 5000. Unfortunately we have no interventional radiology or urology for biopsies and I discussed with him if he would prefer to come to this institution to go to a residential versus going to a higher level of care where they would be able to do biopsies and have evaluation by specialist sooner, he would prefer to stay here. Palliative Assessment Advanced Directive - Current Admission Advance Directive: Advance Directive ON ADMISSION - REFERENCE 3 Do you have a Healthcare No 02/03/25 16:07 Living Will? Do you have a Healthcare Power No 02/03/25 16:07 of Network Engineer? Do You Want Additional Declined 02/03/25 16:07 Information on Advanced Directives or Healthcare Proxy/DPOA comments: No formal POA but he states his daughterAmna Psychosocial/Spiritual Information Living situation/Marital status: Patient was just released from present a week ago today and was staying at [facility] [place]ographic location: [place] Supports: Family Sikh/Mini or spiritual preference: States none Spiritual distress: Denies Prior functional status: Patient states that he was being seen in the long term for arthritis pain and finds out that it was cancer pain. He states that he came in because he was unable to walk any longer. Assistive devices at home: Patient is now utilizing a cane Cultrual issues: Patient was recently released from [facility] and was living at a nursing home house. He is currently unable to return because of his complex medical status. He hopes to go to SNF for rehab. Information about the patient as a person: Patient states that he is a huge jokester. He loves spending time with family or watching television. Symptoms Palliative performance scale: 40% Palliative prognostic index: .5 Dyspnea symptoms: None Constipation symptoms: Severe Nausea symptoms: Mild Vomiting symptoms: None Anorexia symptoms: Mild Cough symptoms: None Insomnia symptoms: None Diarrhea symptoms: None Fatigue symptoms: Moderate Weakness symptoms: Moderate Confusion symptoms: None Objective Data Objective Data Vital Signs: Vital Signs Temp Pulse Resp BP Pulse Ox O2 Del Method 98.1 F 97 14 144/83 H 96 Room Air 02/09/25 07:29 02/09/25 07:29 02/09/25 07:29 02/09/25 07:29 02/09/25 07:29 02/09/25 07:29 Oxygen Delivery Method Room Air Weight: 168 lb Body Mass Index (BMI) 24.7 Intake & Output: Intake and Output for Last 24 Hours 02/07/25 02/08/25 02/09/25 23:59 23:59 23:59 Intake Total 1580 / 1580 580 / 580 Output Total 1220 / 1220 700 / 1100 600 / 600 Balance 360 / 360 -120 / -520 -600 / -600 Lab / Micro Data Attestation: I reviewed the patient's lab results. 02/09/25 06:29 02/09/25 06:29 Labs: Laboratory Results - last 24 hr 02/09/25 06:29: WBC 9.3, RBC 4.46 L, Hgb 12.0 L, Hct 37.0 L, MCV 83.0, MCH 26.9 L, MCHC 32.4, RDW Std Deviation 41.8, RDW Coeff of Lara 13.8, Plt Count 320, MPV 10.9, Immature Gran % (Auto) 0.500, Neut % (Auto) 66.0, Lymph % (Auto) 14.3 L, M juan % (Auto) 13.7 H, Eos % (Auto) 4.2, Baso % (Auto) 1.3 H, Absolute Neuts (auto) 6.1, Absolute Lymphs (auto) 1.33, Nucleated RBC % 0, PT 15.6 H, INR 1.2, Sodium 136, Potassium 4.6, Chloride 101, Carbon Dioxide 26.7, Anion Gap 9, BUN 20 H, Creatinine 0.86, Estim Creat Clear Calc 90.20, Est GFR (MDRD) Non-Af 98, B UN/Creatinine Ratio 23.5 H, Glucose 111 H, Calcium 9.0 Rhythm Strip Rhythm Strip: Sinus Tach Rate: 94 Social Homelessness:: Sheltered Impressions & Recommendations Patient & Family Issues discussed with the patient and family: Goals of care going forward Patient goal: Patient states that he is interested in treatment and wants to keep his symptoms at baseline is possible Family goal: Family states they want him around for a long time. Ethical & Legal Ethical and legal: Patient has no POA Impressions Impressions: Patient would qualify for hospice if he chooses to not go forward with treatment otherwise outpatient palliative care. Recommentation Palliative recommendations: Outpatient palliative Encouter Achieved as a result of this Palliative Care Encounter: [ [id number], [id number], [phone]] minutes were spent in total for this visit which consisted, primarily of counseling and education dealing with the complex and emotionally intense issues of symptom management and palliative care in the setting of serious and potentially life-threatening illness. Review of documentation, labs and radiological studies. ?Patient/family had the opportunity to ask questions Plan (1) Leg pain: QUALIFIERS: Laterality: left Qualified Code(s): M79.605 - Pain in left leg (2) Prostate cancer metastatic to bone: (3) Inability to walk: (4) Goals of care, counseling/discussion: (5) Palliative care encounter: PLAN: Plan *Goals of care discussion with the patient and family *Discussion of outpatient palliative care for symptom management and resources *Patient is hopeful to go to SNF for rehab *Patient is interested in treatments to assist with symptom management as well as slowing the progression of his cancer. *[facility]
[2025-02-09 13:59] VITALS: BP 147/82; PULSE 95; RESP 14; TEMP 36.4; O2SAT 100
--- NOTE | 2025-02-09 14:13 | CASEMGMT ---
Social Work- SW met with pt to discuss referral determinations. [facility] and [facility] accepted referral. [facility], [facility], [facility], and [facility] declined. SW answered questions regarding facilities. Pt selected [facility] as FOC. [facility] notified. Pt reports that he met with palliative [employer] INSTRUCTIONAL AIDE and is agreeable to services. Pt selected [facility]. SW completed referral via email. SW updated hospitalist. Plan: [facility]; pend precert with [facility] AHSAN Flores
[2025-02-09 18:00] VITALS: BP 120/66; PULSE 98; RESP 14; TEMP 36.8; O2SAT 96
[2025-02-09 21:01] VITALS: BP 153/78; PULSE 102; RESP 20; TEMP 36.3; O2SAT 99
[2025-02-10 05:39] VITALS: BP 159/84; PULSE 94; RESP 18; TEMP 36.3; O2SAT 99
[2025-02-10 09:17] VITALS: BP 137/77; PULSE 109; RESP 15; TEMP 36.5; O2SAT 100
[2025-02-10] MEDS: morphine SR 15 MG Tablet PO (09:22)
--- NOTE | 2025-02-10 10:23 | CASEMGMT ---
Social Work Precert is still pending for this pt. INEZ Rock
--- NOTE | 2025-02-10 11:11 | CASEMGMT ---
Discharge Planning A list of?urologist providers including quality and resource use data and consistent with the patient's preferred geographic region, medical needs, and insurance network was created in [employer] Guide.? This list was provided to the RN CHEIKH. Kelly Smith, Discharge Planning Asst.
--- NOTE | 2025-02-10 11:23 | CASEMGMT ---
RN CHEIKH provided pt with a list of in network providers for urology. Pt states he has no preference of provider. He states to chose the closest provider which shows to be Dr.Joshua Gladys Lofton. Requested corporation secretary make appt for pt.
--- NOTE | 2025-02-10 12:12 | PCM.PN.PAL ---
Subjective Subjective Unfortunately CT-guided biopsy was unable to be completed, due to location. Will need to pursue outpatient prostate biopsy. Objective Data Objective Data Vital Signs: Vital Signs Temp Pulse Resp BP Pulse Ox O2 Del Method 97.7 F L 109 H 15 137/77 H 100 Room Air 02/10/25 09:17 02/10/25 09:17 02/10/25 09:17 02/10/25 09:17 02/10/25 09:17 02/10/25 09:17 Oxygen Delivery Method Room Air Weight: 168 lb Body Mass Index (BMI) 24.7 Intake & Output: Intake and Output for Last 24 Hours 02/08/25 02/09/25 02/10/25 23:59 23:59 23:59 Intake Total 580 / 580 1200 / 1200 200 / 200 Output Total 700 / 1100 1200 / 1200 300 / 300 Balance -120 / -520 0 / 0 -100 / -100 Lab / Micro Data Attestation: I reviewed the patient's lab results. Lab results narrative: from yesterday 02/09/25 06:29 02/09/25 06:29 Rhythm Strip Rhythm Strip: Sinus Tach Rate: 94 Social Homelessness:: Sheltered Physical Exam Const alert and oriented x3 General Appearance: cooperative HEENT normocephalic Eyes PERRL Lymph Lymphatic: lymphedema Resp normal respiratory effort, normal air movement and clear to auscultation bilaterally Cardio S1 normal heart sound and S2 normal heart sound Rhythm: abnormal rhythm GI normal to inspection, nondistended, normoactive bowel sounds and soft to palpation no CVA tenderness Extremity normal capillary refill Skin no rashes or lesions noted Neuro oriented x3, no focal motor deficits and no sensory deficits noted Sensorium / Orientation: awake, alert, oriented to person, oriented to place and oriented to time Speech: speech normal Psych affect normal Charges/Coding Palliative Care Palliative Care: [id number] Follow up 35-49 min Consulation Summary Current admission Current Code Status: full code Associated Diagnosis: metastatic prostate cancer Consult Data Date of Consult: 02/09/25 Location of consult: [place] Reason for referral: goals of care Referral source: Dr. Boyer Palliative care diagnosis (Summary list): metastatic prostate CA Palliative care services/treatment (Accepted, as consult): accepted Case discussed with referring provider: 02/10/25: prior to meeting with the pt at bedside, I reviewed labs and documentation. I then met with Gustavo at bedside. I noted that he has a walker in his room and he states that the walker is helping him more than the cane and he feels more stable with it and it decreased the pain. He states that his pain is currently well controlled. We then discussed his discharge plan. He states that the plan is to go to [facility] for rehab and that he is hoping that his symptoms will be well controlled there. Referral has been placed for palliative care with [facility]. I do recommend that the pt be placed on scheduled pain medications with additional for breakthrough pain, to assist with manageing his pt at [facility]. Gustavo is a poor historian when it comes to who has been in to see him from the care team. I did speak with [place] with CM/COMPA to verify information. All questions the pt had were answered. He did state that his constipation has resolved and that he had 3 BM's last night. 02/09/25:Prior to meeting with the patient, Gustavo, in his room, I reviewed labs, they are to the studies and documentation. I then met with the patient and his friend in his room. Gustavo had just gotten done going for a walk. He did utilize a cane and his gait was slow and shuffling in nature. I introduced myself and the concept of palliative care in which she voluntarily excepted our services. I reviewed with Gustavo what he knew about his disease process and he which she was able to verbalize that he knew he had prostate cancer with metastasis. We discussed his need for a biopsy in order to have a treatment plan going forward.. He stated understanding. Thanks friend that I got his daughter on the phone, Amna. I was able to meet with her as well and answer all questions. We then discussed Gustavo's goals of care going forward in which he stated that he wants to keep his cancer at bay as long as possible. He does state understanding that he will need to follow-up with urology for biopsy as he was unable to obtain one today related to the complexity. Per documentation, Gustavo is unable to return to the [facility] program because of the complexity of his current medical diagnosis. He states that he was released from skilled nursing a week ago today. He is hoping to go to a nursing facility for rehab. I then introduced the concept of outpatient palliative care in which he stated interest as he does have some uncontrolled symptoms related to pain and constipation from an outpatient standpoint. When I asked Gustavo if he had any questions he stated yeah can I go smoke a cigarette? I did remind him that this is a smoke-free campus in which he stated oh yeah. We then discussed smoking cessation and how it could benefit him going forward in which she stated understanding. He then asked what about marijuana? I did give him information about the benefits versus burdens of marijuana usage in the setting of cancer. He stated understanding. He currently denies shortness of breath, dizziness or chest pain. I did update Dr. Boyer as well as CM/SW. All questions were answered that family and patient. per hospitalist: GUSTAVO ROBISON, is a 59 M who presents to the hospital with lower extremity weakness and pain. He denies anything that makes the pain better or worse and he does not feel like the pain is shooting from his back down his legs he says that it is in his ankles and will occasionally shoot up into his groin on the left leg mostly though the right ankle is also sore. If he tries to do a straight leg raise with his left leg it causes pain in his inguinal region unclear if this is related to the significant lymphadenopathy. The ED physician was concerned for vascular compromise given the situation so ordered a CTA of the abdomen and pelvis with runoff it looks like arteries are okay however he does have a very large prostate cancer with bilateral large inguinal lymphadenopathy and bone mets to the spine as well as ribs and left iliac, a PSA was added on which was greater than 5000. Unfortunately we have no interventional radiology or urology for biopsies and I discussed with him if he would prefer to come to this institution to go to a halfway versus going to a higher level of care where they would be able to do biopsies and have evaluation by specialist sooner, he would prefer to stay here. Palliative Assessment Advanced Directive - Current Admission Advance Directive: Advance Directive ON ADMISSION - REFERENCE Do you have a Healthcare No 02/03/25 16:07 Living Will? Do you have a Healthcare Power No 02/03/25 16:07 of Distribution Transformer Assembler? Do You Want Additional Declined 02/03/25 16:07 Information on Advanced Directives or Healthcare Proxy/DPOA comments: no formal be states daughter Amna Symptoms Dyspnea symptoms: Mild Constipation symptoms: None Nausea symptoms: None Vomiting symptoms: None Depression symptoms: None Anorexia symptoms: None Cough symptoms: None Insomnia symptoms: None Diarrhea symptoms: None Fatigue symptoms: Mild Weakness symptoms: Moderate Confusion symptoms: Mild Impression & Recommendations Impressions Impressions: pt lacks insight into the severity of his acute dx. Recommentation Palliative recommendations: Outpatient palliative Encouter Achieved as a result of this Palliative Care Encounter: [ [id number], [id number]] minutes were spent in total for this visit which consisted, primarily of counseling and education dealing with the complex and emotionally intense issues of symptom management and palliative care in the setting of serious and potentially life-threatening illness. Review of documentation, labs and radiological studies. ?Patient/family had the opportunity to ask questions Plan (1) Leg pain: QUALIFIERS: Laterality: left Qualified Code(s): M79.605 - Pain in left leg (2) Prostate cancer metastatic to bone: (3) Inability to walk: (4) Goals of care, counseling/discussion: (5) Palliative care encounter: PLAN: Plan *Goals of care discussion with the patient and family *Discussion of outpatient palliative care for symptom management and resources *Patient is hopeful to go to SNF for rehab *Patient is interested in treatments to assist with symptom management as well as slowing the progression of his cancer. *[facility] *update sent to [facility] providers about pt choice for SNF ROS Review of Systems ROS Unobtainable: other Constitutional Constitutional: Reports body ache(s), poor appetite and other Details: craving sweets Eyes Eyes: Reports systems reviewed and no addt'l complaints, except as documented ENT HEENT: Reports systems reviewed and no addt'l complaints, except as documented Cardiovascular Cardiovascular: Reports leg edema Respiratory/Chest Respiratory/Chest: Reports systems reviewed and no addt'l complaints, except as documented Gastrointestinal Gastrointestinal: Reports constipation Genitourinary Genitourinary: Reports systems reviewed and no addt'l complaints, except as documented Musculoskeletal Musculoskeletal: Reports difficulty walking, extremity pain, joint pain, joint stiffness and joint swelling Integumentary Integumentary: Reports systems reviewed and no addt'l complaints, except as documented Neurologic Neurologic: Reports systems reviewed and no addt'l complaints, except as documented Psychiatric Psychiatric: Reports systems reviewed and no addt'l complaints, except as documented Endocrine Endocrinology: Reports systems reviewed and no addt'l complaints, except as documented Hematologic/Lymphatic Hematologic/Lymphatic: Reports systems reviewed and no addt'l complaints, except as documented Allergic/Immunologic Allergic/Immunologic: Reports systems reviewed and no addt'l complaints, except as documented
[2025-02-10 14:00] VITALS: BP 114/69; PULSE 94; RESP 15; TEMP 36.4; O2SAT 97
--- NOTE | 2025-02-10 15:30 | PN.HOSP_ITS ---
Reason for Visit Chief Complaint: Lower extremity pain and weakness Subjective Subjective Patient states his pain remains well-controlled. Is having loose stools. States he had 4 bowel movements yesterday. Is on scheduled stool softeners so I did discuss with him discontinuing this and making a as needed. Objective Data Objective Data Vital Signs: Vital Signs Temp Pulse Resp BP Pulse Ox O2 Del Method 97.7 F L 109 H 15 137/77 H 100 Room Air 02/10/25 09:17 02/10/25 09:17 02/10/25 09:17 02/10/25 09:17 02/10/25 09:17 02/10/25 09:17 Oxygen Delivery Method Room Air Weight: 76.204 kg Body Mass Index (BMI) 24.7 Intake & Output: Intake and Output for Last 24 Hours 02/08/25 02/09/25 02/10/25 23:59 23:59 23:59 Intake Total 580 / 580 1200 / 1200 200 / 200 Output Total 700 / 1100 1200 / 1200 300 / 300 Balance -120 / -520 0 / 0 -100 / -100 Lab / Micro Data 02/09/25 06:29 02/09/25 06:29 Rhythm Strip Rhythm Strip: Sinus Tach Rate: 94 Social Homelessness:: Sheltered Physical Exam Const alert, oriented x3, no apparent distress and average body habitus; Negative for healthy appearing Constitutional Narrative: Upper middle-aged, white male, sitting up in bed, currently appears comfortable, watching television, appears older than stated age, does not appear toxic HEENT head/scalp atraumatic and moist oral mucous membranes HEENT Narrative: Dentition is poor, Mallampati is 2, no thrush present Head and Scalp: normocephalic Neck Neck Narrative: Trachea midline Resp normal respiratory effort, no retractions, no use of accessory muscles and clear to auscultation bilaterally Resp Narrative: Diminished but clear Auscultation: Negative for crackles, rhonchi or wheezes Cardio regular rate, regular rhythm, S1 normal heart sound, S2 normal heart sound, no murmurs, no rub, no gallops and no clicks GI normal to inspection, nondistended, normoactive bowel sounds, soft to palpation and non-tender Extremity no clubbing, cyanosis or edema Extremity Narrative: 2+ pedal pulses Neuro moves all extremities and no focal motor deficits Speech: speech normal Psych Psych Narrative: Affect is slightly flat but appropriate for current situation, patient makes good eye contact, interacts appropriately Assessment & Plan Assessment/Plan (1) Prostate cancer metastatic to bone: (2) Leg pain: QUALIFIERS: Laterality: left Qualified Code(s): M79.605 - Pain in left leg PLAN: Plan Generalized weakness and debility/lower extremity pain secondary to metastatic prostate cancer - Continue ongoing pain regimen with as needed oxycodone - Continue scheduled morphine - Scheduled Tylenol - Continue Celebrex 100 mg twice daily and continue PPI indefinitely while on Celebrex - Continue PT/OT - Plan is for placement at [facility] once approved by insurance Metastatic prostate cancer - PSA 5000 on presentation - Unable to perform bone biopsy via IR - Patient is interested in treatment if at all possible - Will plan to discharge to skilled facility and have follow-up in the outpatient office [facility], as we have no inpatient urology available at this time - Discussed with patient - Case management is working on setting up an appointment with Dr. Lofton in [place] as local urology is not in network - Palliative care consultation for assistance with discharge follow-up and pain management Hypertension - Patient has had persistently elevated blood pressure with requiring the initiation of antihypertensives - Continue carvedilol - Continue lisinopril but increase from 20 to 40 mg daily and continue to trend blood pressure - Blood pressure control is much improved Acute anemia - New on presentation and mild - No signs of bleeding - Hemoglobin is stable - No further workup at this time as this is extremely mild in nature with a current hemoglobin of 12. Tobacco abuse - Recommend cessation - Continue nicotine patch Marijuana use - Recommend cessation - Risks and benefits were discussed with patient by palliative care DVT prophylaxis - Continue enoxaparin CODE STATUS - Full code Charges/Coding Visit Charges Inpatient E&M: 54616 Subs Hosp L2 Date medically ready for discharge: 02/09/25 Reason for DC delay: Precert pending from insurance
[2025-02-10 18:00] VITALS: BP 138/77; PULSE 92; RESP 13; TEMP 36.6; O2SAT 97
[2025-02-10 20:26] VITALS: BP 138/78; PULSE 91; RESP 18; TEMP 36.9; O2SAT 99
[2025-02-11] MEDS: morphine SR 15 MG Tablet PO ×3 (00:02→21:18)
[2025-02-11 05:00] VITALS: BP 133/66; PULSE 89; RESP 18; TEMP 36.9; O2SAT 95
--- NOTE | 2025-02-11 08:24 | CASEMGMT ---
Discharge Planning Updates sent via [facility] to [facility]. Precert remains pending. Kelly Smith DC Planning Asst.
[2025-02-11 08:30] VITALS: BP 142/75; PULSE 90; RESP 16; TEMP 36.8; O2SAT 97
[2025-02-11 14:30] VITALS: BP 117/70; PULSE 89; RESP 16; TEMP 36.6; O2SAT 97
--- NOTE | 2025-02-11 14:58 | TREXTCAR_ITS ---
Diet Diet Order/Speech Therapy: INPATIENT Hospital Diet / Speech Therapy Order(s) 02/03/25 16:02 Diet: Regular - General Food consistency:: Easy to Chew Liquid Consistency:: Regular/Thin Diet Comments: edentulous Routine Orders/Code Status Suppository Frequency: Daily PRN Routine Lab Work: CBC (1 week) and BMP (1 week) Code Status: Full Code DC O2, CPAP, BIPAP needs Home O2 Discharge instructions: No Suggestions for Active Care Change Position every (hours): 2 Hours to sit in a chair: 2 Times a day to sit in chair: 2 Therapies Weight Bearing: Full weight bearing Physical Therapy: Eval and Treat Occupational Therapy: Eval and Treat Problem/Diagnosis (1) Prostate cancer metastatic to bone: Status: Acute Code(s): C61 - Malignant neoplasm of prostate; C79.51 - Secondary malignant neoplasm of bone (2) Leg pain: Status: Acute Code(s): M79.606 - Pain in leg, unspecified Allergies/Procedures Done in Hospital Allergies Penicillins Adverse Reaction (Verified 02/03/25 08:55) Upset Stomach Procedures: - (CTA abdomen and pelvis) Type of Care/Length of Stay Estimated LOS: Convalescent Care Less Than 30 days Type of Care Needed: Skilled Rehab Potential: Good Prognosis: Fair Additional Orders/Day of Discharge Additional Orders: See follow-up appointments and discharge information Day of Discharge: 02/11/25 Dietary and Speech Recommendations Dietitian Recommendations/Changes: Continue regular - easy to chew diet as ordered. Discharge Plan Admission Admit Date/Time: 02/05/25 15:48 Attending Provider: Katiuska Boyer Primary Care Provider: Care Physician,No Primary Consulting Providers: Pacheco Fry; Rachael Schwarz; Sudhir Luna; Lou Valdivia; Charmaine Trinidad; Bessie Dey; Teresa Garcia BOXING MACHINE OPERATOR; Laverne Mireles Instructions Patient Instructions: Prostate Cancer: Diagnosis Discharge Orders/Prescriptions Prescriptions: New hydrocodone-acetaminophen 5-325 mg tablet 1 tab PO Q4H PRN PRN (Reason: Pain) 2 Days Qty: 10 0RF Referrals / Follow Up: geovany [Other] Chace Lofton MD [Non-Staff, Urology] - 03/10/25 4:00 pm Referral Note: Metastatic prostate cancer. Leonie Calhoun MD [Med Staff - Active Staff, Oncology] - 3-5 Days Care Physician,No Primary [Primary Care Provider, Medical] (2) Leg pain Qualifiers: Laterality: left Qualified Code(s): M79.605 - Pain in left leg
--- NOTE | 2025-02-11 15:02 | PN.HOSP_ITS ---
Reason for Visit Chief Complaint: Lower extremity pain and weakness Subjective Subjective No issues overnight or today. Patient is okay with going to [place] and seeing Dr. Lofton. Appointment has been set. Objective Data Objective Data Vital Signs: Vital Signs Temp Pulse Resp BP Pulse Ox O2 Del Method 97.8 F 89 16 117/70 97 Room Air 02/11/25 14:30 02/11/25 14:30 02/11/25 14:30 02/11/25 14:30 02/11/25 14:30 02/11/25 14:30 Oxygen Delivery Method Room Air Weight: 76.204 kg Body Mass Index (BMI) 24.7 Intake & Output: Intake and Output for Last 24 Hours 02/09/25 02/10/25 02/11/25 23:59 23:59 23:59 Intake Total 1200 / 1200 200 / 200 300 / 300 Output Total 1200 / 1200 300 / 300 200 / 200 Balance 0 / 0 -100 / -100 100 / 100 Lab / Micro Data 02/09/25 06:29 02/09/25 06:29 Rhythm Strip Rhythm Strip: Sinus Tach Rate: 94 Social Homelessness:: Sheltered Physical Exam Const alert, oriented x3, no apparent distress and average body habitus; Negative for healthy appearing Constitutional Narrative: Upper middle-aged, white male, lying in bed sleeping, awakens easily, appears comfortable, nontoxic HEENT head/scalp atraumatic and moist oral mucous membranes Head and Scalp: normocephalic Psych Psych Narrative: Affect is slightly flat but appropriate for current situation, patient makes good eye contact, interacts appropriately, very pleasant Assessment & Plan Assessment/Plan (1) Prostate cancer metastatic to bone: (2) Leg pain: QUALIFIERS: Laterality: left Qualified Code(s): M79.605 - Pain in left leg PLAN: Plan Generalized weakness and debility/lower extremity pain secondary to metastatic prostate cancer - Continue ongoing pain regimen with as needed oxycodone - Continue scheduled morphine - Scheduled Tylenol - Continue Celebrex 100 mg twice daily and continue PPI indefinitely while on Celebrex - Continue PT/OT - Plan is for placement at [facility] once approved by insurance - Pain is well-controlled and patient is stable Metastatic prostate cancer - PSA 5000 on presentation - Unable to perform bone biopsy via IR - Patient is interested in treatment if at all possible - Will plan to discharge to skilled facility and have follow-up in the outpatient office [facility], as we have no inpatient urology available at this time - Discussed with patient - Case management is working on setting up an appointment with Dr. Lofton in [place] as local urology is not in network - Will need follow-up with oncology - Palliative care consultation for assistance with discharge follow-up and pain management Hypertension - Blood pressure control is much better with changes made yesterday - Continue carvedilol - Continue lisinopril 40 mg daily Acute anemia - New on presentation and mild - No signs of bleeding - Hemoglobin is stable Tobacco abuse - Recommend cessation - Continue nicotine patch Marijuana use - Recommend cessation - Risks and benefits were discussed with patient by palliative care DVT prophylaxis - Continue enoxaparin CODE STATUS - Full code Charges/Coding Visit Charges Inpatient E&M: 48722 Subs Hosp L1 Date medically ready for discharge: 02/09/25 Reason for DC delay: Precert pending from insurance Delay Comments: 7000 form filled out today per discussion with case management at the request of insurance
--- NOTE | 2025-02-11 15:22 | CASEMGMT ---
Social Work- SW checked with CC on status of precert. 7000 requested for precert. SW completed and placed copy on chart. Sw remains available to follow. Plan: [facility]; pend precert AHSAN Flores
[2025-02-11 21:11] VITALS: BP 135/77; PULSE 97; RESP 16; TEMP 36.6; O2SAT 97
[2025-02-12 03:40] VITALS: BP 151/83; PULSE 92; RESP 16; TEMP 36.6; O2SAT 99
[2025-02-12 07:58] VITALS: BP 151/88; PULSE 90; RESP 16; TEMP 37.1; O2SAT 98
--- NOTE | 2025-02-12 09:00 | CASEMGMT ---
Discharge Planning Msg sent via [facility] asking for status of precert. Awaiting response. Kelly Smith DC Planning Asst.
[2025-02-12] MEDS: morphine SR 15 MG Tablet PO (09:54)
[2025-02-12 14:30] VITALS: BP 117/69; PULSE 88; RESP 16; TEMP 36.8; O2SAT 97
--- NOTE | 2025-02-12 14:42 | CASEMGMT ---
Social Work- SW sent request to [facility] for update on precert. Hospitalist reports pt is medically ready. SW remains available to follow. AHSAN Flores
--- NOTE | 2025-02-12 15:11 | PCM.DC.SUM ---
Providers Date of Admission: 02/05/25 Date of Discharge: 02/12/25 Primary Care Physician: No Primary Care Phys Consultations 02/09/25 07:58 Consult: Inpatient Palliative Care Routine Consulting Provider: Rachael Schwarz Reason for Consult: Newly diagnosed prostate cancer with metastatic disease EMERGENT Consult: No MD Notified: Yes Date Notified: 02/09/25 Time Notified: 07:59 Method of Notification: Text 02/09/25 14:30 Consult: Hospice / Outpatient Palliative Care Routine Consulting Provider: [facility] Reason for Consult: New diagnosis of metastatic cancer EMERGENT Consult: No MD Notified: Yes Date Notified: 02/09/25 Time Notified: 14:30 Method of Notification: Text Reason For Visit: PAIN AND WEAKNESS Diagnosis Discharge Diagnosis (1) Prostate cancer metastatic to bone: Status: Acute Code(s): C61 - Malignant neoplasm of prostate; C79.51 - Secondary malignant neoplasm of bone (2) Leg pain: Status: Acute Code(s): M79.606 - Pain in leg, unspecified Qualifiers: Laterality: left Qualified Code(s): M79.605 - Pain in left leg Medications at Discharge Home Medications acetaminophen 500 mg tablet 1,000 mg (2 x 500 mg) PO Q8 #0 tabs 02/12/25 carvedilol 6.25 mg tablet 6.25 mg PO BIDCM #0 tabs 02/12/25 celecoxib 100 mg capsule 100 mg PO BID #0 caps 02/12/25 lisinopril 40 mg tablet 40 mg PO DAILY #0 tabs 02/12/25 morphine 15 mg tablet,extended release 15 mg PO BID 2 days #4 tabs 02/12/25 nicotine 21 mg/24 hr daily transdermal patch 21 mg transdermal DAILY #0 ea 02/12/25 oxycodone 5 mg tablet 7.5 mg (1.5 x 5 mg) PO Q4H PRN PRN Pain Score 4-10 2 days #12 tabs 02/12/25 pantoprazole 40 mg tablet,delayed release 40 mg PO DAILY #0 tabs 02/12/25 sennosides 8.6 mg-docusate sodium 50 mg tablet (Stimulant Laxative Plus) 2 tab PO BID PRN Constipation #0 tabs 02/12/25 Hospital Course Operations None Procedures - (CTA of the abdomen pelvis with runoff) Summary of Care Provided Minutes Spent on Discharge: 37 Hospital Course: Mr. Jennings is a 59-year-old white male who presented to [facility] from a homeless care home due to intractable leg pain and inability to ambulate. He had been incarcerated for the last 3 years and was currently residing in a homeless care home following this event. He had been estranged from his family. Given his severe leg pain and inability ambulate emergency department a CTA with runoff was performed in the emergency department and unfortunately demonstrated significant enlargement of the prostate gland with lobulated contours and loss of margin with extraprostatic extension of disease into the anterior wall of the rectum and the posterior wall of the bladder concerning for prostatic neoplasm as well as extensive pelvic and retroperitoneal lymphadenopathy and lytic sclerotic lesions in the skeleton including destroyed appearance of the proximal right 12th rib and proximal left 11th rib with lytic lesions in the right and left iliac bones and multiple vertebral bodies more significantly at L1. He also had heavy coronary calcification and small pericardial effusion as well as mild peripheral multivessel vascular disease with no occlusion and three-vessel runoff present throughout the level of the ankle. A PSA was obtained and found to be greater than 5000. We highly suspect he has metastatic prostate cancer. A biopsy was ordered for bone however when reviewed by radiology they felt the window was too narrow to obtain a safe biopsy. Urology is not available for in-house consultation. We tried to set up an outpatient follow-up for him however our local urologist is not in network and he was referred to Dr. Lofton in [place]. He does have an upcoming appointment with them. With regards to his pain and debility. He was treated with pain medication to include scheduled morphine with as needed oxycodone, scheduled Celebrex with PPI for GI prophylaxis. He is not to be on Celebrex for more than a month and then GI prophylaxis can be discontinued, and scheduled Tylenol. His pain was well-controlled with this regimen overall. He was seen by physical and Occupational Therapy and they felt he would benefit from skilled therapy at discharge. His blood pressure was elevated on presentation he was started on carvedilol and lisinopril. Blood pressure was improved after up titration of his medications. He had a mild acute anemia but was stable throughout his stay. He is a significant history of tobacco abuse and marijuana use. He does not want a pursue aggressive workup so follow-up was scheduled with urology as noted above and recommended follow-up with oncology after discharge. Patient was accepted by [facility] for discharge and pre-CERT was obtained on 02/12/2025. Prescriptions for scheduled narcotics were sent for 48 hours until they can be filled by the local rounding physician at the nursing facility. Discharge diagnoses: Metastatic prostate cancer-new diagnosis Generalized weakness and debility secondary to pain related to the above Hypertension Acute anemia Tobacco abuse Marijuana use Suspected coronary artery disease based on CTA Suspected peripheral vascular disease based on CTA Suspected COPD based on CTA Homelessness Physical Exam Const alert, oriented x3, no apparent distress, average body habitus and well nourished; Negative for healthy appearing Constitutional Narrative: Upper middle-aged, white male, lying in bed sleeping, awakens easily, appears comfortable, nontoxic General Appearance: cooperative, comfortable, well kempt and well developed Orientation / Consciousness: awake Exam Limitations: no limitations HEENT normocephalic, head/scalp atraumatic and moist oral mucous membranes; Negative for hearing grossly normal bilaterally HEENT Narrative: Poor dentition, Mallampati 2, no thrush, mild to moderate hearing loss Eyes conjunctivae normal Eyes Narrative: No scleral icterus Neck supple Neck Narrative: Trachea midline Resp normal respiratory effort, no retractions, no use of accessory muscles and clear to auscultation bilaterally Resp Narrative: Diminished but clear Auscultation: Negative for crackles, rales, rhonchi or wheezes Cardio regular rate, regular rhythm, S1 normal heart sound, S2 normal heart sound, no murmurs, no rub, no gallops and no clicks GI normal to inspection, nondistended, normoactive bowel sounds, soft to palpation and non-tender Extremity no clubbing, cyanosis or edema Extremity Narrative: 2+ pedal pulses Skin no jaundice, no petechiae and no mottling Skin Narrative: Tattoos with skin changes consistent with sun exposure but no wounds Neuro moves all extremities and no focal motor deficits Neuro Narrative: Generalized weakness noted Speech: speech normal Psych Psych Narrative: Affect is slightly flat but appropriate for current situation, patient makes good eye contact, interacts appropriately, very pleasant Medical Records Data Homelessness:: Sheltered Weight / BMI Weight Weight: 76.204 kg Body Mass Index (BMI) 24.7 ABG / Lab / Microbiology Data 02/09/25 06:29 02/09/25 06:29 D/C Instructions DC O2, CPAP, BIPAP Needs Home O2 Discharge instructions: No DC home with Oxygen: No Meaningful Use Info Meaningful Use Meaningful Use Diagnoses (Choose all that apply): None applicable Discharge Plan Admission Admit Date/Time: 02/05/25 15:48 Primary Reason for Your Visit: Bilateral lower extremity pain and weakness Attending Provider: Katiuska Boyer Primary Care Provider: Care Physician,No Primary Consulting Providers: Pacheco Fry; Rachael Schwarz; Sudhir Luna; Lou Valdivia; Charmaine Trinidad; Bessie Dey; Teresa Garcia ALUM OPERATOR; Laverne Mireles Instructions Patient Instructions: Prostate Cancer: Diagnosis Discharge Orders/Prescriptions Prescriptions: New carvedilol 6.25 mg Tablet 6.25 mg PO BIDCM Qty: 0 0RF acetaminophen 500 mg Tablet 1,000 mg PO Q8 Qty: 0 0RF morphine 15 mg Tablet Extended Release 15 mg PO BID 2 Days Qty: 4 0RF celecoxib 100 mg Capsule 100 mg PO BID Qty: 0 0RF Rx Instructions: Discontinue after 1 month lisinopril 40 mg Tablet 40 mg PO DAILY Qty: 0 0RF nicotine 21 mg/24 hr Patch 24 Hour 21 mg transdermal DAILY Qty: 0 0RF oxycodone 5 mg Tablet 7.5 mg PO Q4H PRN PRN (Reason: Pain Score 4-10) 2 Days Qty: 12 0RF sennosides-docusate sodium [Stimulant Laxative Plus] 8.6-50 mg Tablet 2 tab PO BID PRN (Reason: Constipation) Qty: 0 0RF pantoprazole 40 mg Tablet,Delayed Release (Dr/Ec) 40 mg PO DAILY Qty: 0 0RF Referrals / Follow Up: [facility] [Other] Chace Lofton MD [Non-Staff, Urology] - 03/10/25 4:00 pm Referral Note: Metastatic prostate cancer. Leonie Calhoun MD [Med Staff - Active Staff, Oncology] - 3-5 Days Referral Note: Will need appointment set up after discharge Care Physician,No Primary [Primary Care Provider, Medical] Disposition Disposition (needs filled in before D/C Order can be placed): Retirement Facility Charges/Coding Visit Charges Inpatient E&M: 15361 SNF Disch >30 Min
--- NOTE | 2025-02-12 15:19 | PHA.DC.MR.R ---
Pharmacy [place] Med Reconciliation Pharmacy Service has performed discharge medication reconciliation for this patient. The patient's discharge medication list was reviewed for discrepancies and discrepancies were resolved. Medications at Discharge Home Medications acetaminophen 500 mg tablet 1,000 mg (2 x 500 mg) PO Q8 #0 tabs 02/12/25 carvedilol 6.25 mg tablet 6.25 mg PO BIDCM #0 tabs 02/12/25 celecoxib 100 mg capsule 100 mg PO BID #0 caps 02/12/25 lisinopril 40 mg tablet 40 mg PO DAILY #0 tabs 02/12/25 morphine 15 mg tablet,extended release 15 mg PO BID 2 days #4 tabs 02/12/25 nicotine 21 mg/24 hr daily transdermal patch 21 mg transdermal DAILY #0 ea 02/12/25 oxycodone 5 mg tablet 7.5 mg (1.5 x 5 mg) PO Q4H PRN PRN Pain Score 4-10 2 days #12 tabs 02/12/25 pantoprazole 40 mg tablet,delayed release 40 mg PO DAILY #0 tabs 02/12/25 sennosides 8.6 mg-docusate sodium 50 mg tablet (Stimulant Laxative Plus) 2 tab PO BID PRN Constipation #0 tabs 02/12/25
--- NOTE | 2025-02-12 16:22 | CASEMGMT ---
Discharge Planning Discharge orders, signed med list, and transport time sent via [facility] to [facility]. Physicians will transport pt by wheelchair at 6:30p. Nursing, SW, pt, and his daughter (Amna) updated. Kelly Smith DC Planning Asst.
--- NOTE | 2025-02-12 16:35 | CASEMGMT ---
Social Work Precert has been obtained.? Physician updated and pt is ready for discharge today.? 7000 convalescent form completed in [facility]. SW met with pt and they are agreeable to discharge plan as stated above.? DCA and bedside nurse notified of discharge. DCA to complete all final arrangements and notifications. Disposition:[facility], skilled level of care [facility] Flores
--- NOTE | 2025-02-18 16:01 | CASEMGMT ---
SALOME SALAMANCA palliative referral f/u: Call placed to # listed on pt's demographics. This is the # for [facility]. Call placed to [facility]. left on Lucia's for return call. Call received from Marylou @ [facility], stating as far as she knows, [place] has not reached out to them yet to schedule appt to come see pt. Blanche VAZQUEZ RN CM
== END 2025-02-12 18:47 | disposition skilled nursing facility (03) | DRG 861 ==
LOC: ED 13:03 → MS3 15:05
PROVIDERS: Admitting Provider Family Medicine; Emergency Provider Emergency Medicine; Visit Provider Internal Medicine
DX: G89.3 Neoplasm related pain (acute) (chronic) (principal); C79.51 Secondary malignant neoplasm of bone; Z59.01 Sheltered homelessness; D64.9 Anemia, unspecified; C61 Malignant neoplasm of prostate; F12.90 Cannabis use, unspecified, uncomplicated; J44.9 Chronic obstructive pulmonary disease, unspecified; I10 Essential (primary) hypertension; F17.210 Nicotine dependence, cigarettes, uncomplicated; I25.10 Atherosclerotic heart disease of native coronary artery without angina pectoris
CPT/HCPCS: 36415; 75635; 80048; 80061; 81001; 84153; 85025; 85610; 85652; 86140; 97112; 97116; 97162; 97166; 97530; 97535; 99285; 99406; Q9967; A4216; G0103; J2405

== ENCOUNTER → 2025-02-17 | Outpatient (REF) | payer MEDICAID, SELFPAY ==
--- OUTSIDE RECORDS SUMMARY | 2025-02-17 04:01 | XMS RPT_ITS | CCD ---
Author Organization [facility] Care Team Providers Care Machine Stamper Name Role Phone Ivanauskas, Saulius Unavailable Unavailable Ivanauskas, Saulius Unavailable Unavailable No Doctor Assigned, Nodr Unavailable Unavail able TEENA ALMANZAR MD Admitting Unavailable TEENA ALMANZAR MD Attending Unavailable TEENA ALMANZAR MD Primary Care Unavailable AMICONEKENYETTABACK DIGGER OPERATOR Attending Unavailab le AMICONE, KENYETTA EXPORT SALES MANAGER-BACK DIGGER OPERATOR Primary Care Unavailab le AMICONE, KENYETTA EXPORT SALES MANAGER-BACK DIGGER OPERATOR Admitting Unavailab le PHYSICIAN, NONE Primary Care Physician Unavailab le PHYSICIAN, NONE Primary Care Unavailable JUAN PEREZ, DR PANTOJA Attending Unavailabl e DIONNE THAYER PA-C Attending Unavailable PHYSICIAN, NONE Primary Care Unavailable Care Physician, No Primary Primary Care Provider Unavailable Dr. Manjeet Lujan DO Emergency Provider Manjeet Lujan Attending Unavailable Care Physician, No Primary Primary Care Unava ilable Allergies Allergy Classification Reported Allergen(s) Allergy Type Date of Onset Reaction(s) Facility (1 source) Penicillin; Translations: [penicillins] Drug Allergy [facility] (1 source) Penicillins Propensity to adverse reactions 5 Upset Stomach [facility] (1 source) Penicillins Drug allergy (disorder) 5 [facility] Repository Medications Current Medications Medication Drug Class(es) Dates Sig (Normalized) Sig (Original) [id number] 200 actuat albuterol 0.09 mg/actuat metered dose inhaler (1 source) beta2-Adrenergic Agonist Start: 07-18-2024 Albuterol Sulfate (Ventolin Hfa) 90 mcg/actuation HFA aerosol inhaler Active 1 - 2 NMA INHALATION EVERY 4 HOURS NEEDED as needed for Wheezing July 18, 2024 12:00am traMADol hydrochloride 50 mg oral tablet (1 source) Opioid Agonist Start: 03-03-2016 traMADol 50 mg oral tablet Dose : 50 mg = 1 tab(s), Oral, q6hr, # 12 tab(s), 0 Refill(s) Start Date: 03/03/16 Status: Ordered Quantity: 12.0 Unit: tab(s) Repeat number: 1 Completed/Discontinued Medications Medication Drug Class(es) Dates Sig (Normalized) Sig (Original) naproxen 500 mg oral tablet (1 source) Nonsteroidal Anti-inflammatory Drug Start: 12-05-2015 End: 07-18-2024 take 1 tablet by mouth twice daily as needed Naproxen 500 MG tablet Discontinued 500 mg PO TWICE DAILY NEEDED December 05, 2015 12:00am July 18, 2024 6:32pm predniSONE 10 mg oral tablet (1 source) Start: 12-05-2015 End: 07-18-2024 take 6 tablets by mouth once daily, then take 4 tablets by mouth once daily, then take 2 tablets by mouth once daily, then take 1 tablet by mouth once daily Prednisone 10 MG tablet Discontinued 10 mg PO DAILY December 05, 2015 12:00am July 18, 2024 6:32pm 6 po qd x 3 days, 4 po qd x 3 days, 2 po qd x 3 days, 1 po qd x 3 days Problems Problem Classification Problem Date Documented Date Episodic/Chronic Anxiety disorders (3 sources) Anxiety disorder, unspecified; Translations: [Anxiety disorder, unspecified] Onset: 03-08-2022 Chronic Cardiac dysrhythmias (1 source) Tachycardia; Translations: [Tachycardia, unspecified] 07-18-2024 Episodic Conditions associated with dizziness or vertigo (1 source) Dizziness and giddiness; Translations: [Dizziness and giddiness] Onset: 05-30-2024 Episodic Influenza (1 source) Influenza due to unidentified influenza virus with other respiratory manifestations; Translations: [Influenza due to unidentified influenza virus with other respiratory manifestations] Onset: 03-08-2022 Episodic Mood disorders (1 source) Depressive disorder; Translations: [Depression with suicidal ideation] 07-06-2022 Chronic Other circulatory disease (1 source) Elevated blood-pressure reading, without diagnosis of hypertension; Translations: [Elevated blood-pressure reading, without diagnosis of hypertension] Onset: 05-30-2024 Episodic Other lower respiratory disease (1 source) Other forms of dyspnea; Translations: [Chronic dyspnea] 07-18-2024 Episodic Other non-traumatic joint disorders (1 source) Joint pain; Translations: [Pain in unspecified joint] 07-18-2024 Episodic Other non-traumatic joint disorders (1 source) Arthralgia of the ankle and/or foot; Translations: [Pain in left ankle and joints of left foot] 12-06-2015 Episodic Residual codes; unclassified (1 source) Tobacco user; Translations: [Tobacco use] 07-18-2024 Episodic Substance-related disorders (1 source) Methamphetamine abuse; Translations: [Other stimulant abuse, uncomplicated] 07-06-2022 Chronic Syncope (1 source) Syncope and collapse; Translations: [Syncope and collapse] Onset: 05-30-2024 Episodic Unclassified (1 source) Cough, unspecified; Translations: [Cough, unspecified] Onset: 07-23-2024 Results Test Name Value Interpretation Reference Range Facility Absolute lymphocyte countOrd ered By: Edna Nichols on 07-18-2024 Lymphocytes Auto (Unsp spec) [#/Vol] 1.44 10*3/uL 0.83-4.51 [facility] Absolute neutrophil countOrd ered By: Edna Nichols on 07-18-2024 Neutrophils (Bld) [#/Vol] 9.1 10*3/uL High 2.0-7.7 [facility] Anion gap in Serum or Plasma Ordered By: Edna Nichols on 07-18-2024 Anion gap [Moles/Vol] 11 mmol/L 5-15 [facility] Automated lymphocyte count a s percentage of total leukocytesOrdered By: Edna Nichols on 07-18-2024 Lymphocytes/100 WBC Auto (Unsp spec) 12.0 % Low 19-41 [facility] BUN/creatinine ratioOrdered By: Edna Nichols on 07-18-2024 Urea nitrogen/Creatinine [Mass ratio] 18.7 mg/mg - [facility] Basic Metabolic Profile (BMP )on 07-18-2024 BUN/CRE 18.7 RATIO Normal 12-29 [facility] Comment on above: Performed By: #### L 501.4021, L100.0100, L500.2500 #### [facility] Laboratory [address] [place], [address] Calcium [Mass/Vol] 9.1 mg/dL Normal 7.6-11.0 [facility] Comment on above: Performed By: #### L 501.4021, L100.0100, L500.2500 #### [facility] [address] [place], [address] Chloride [Moles/Vol] 100 mmol/L Normal 98-108 [facility] Comment on above: Performed By: #### L 501.4021, L100.0100, L500.2500 #### [facility] [address] [place], [address] CO2 [Moles/Vol] 24.3 mmol/L Normal 21.0-32.0 [facility] Comment on above: Performed By: #### L 501.4021, L100.0100, L500.2500 #### [facility] [address] [place], [address] Creatinine [Mass/Vol] 0.97 mg/dL Normal 0.70-1.20 [facility] Comment on above: Performed By: #### L 501.4021, L100.0100, L500.2500 #### [facility] [address] [place], [address] ECRCL 87.39 ml/min Normal 50-250 [facility] Comment on above: Performed By: #### L 501.4021, L100.0100, L500.2500 #### [facility] [address] [place], [address] GAP 11 Normal 5-15 [facility] Comment on above: Performed By: #### L 501.4021, L100.0100, L500.2500 #### [facility] [address] [place], [address] GFR/1.73 sq M.predicted among non-blacks MDRD (S/P/Bld) [Vol rate/Area] 89 mL/min/{1.73_m2} Normal >60 [facility] Comment on above: Result Comment: mL/m in/1.73m2 CKD-EPI Creatinine Equation (2020) Performed By: #### L 501.4021, L100.0100, L500.2500 #### [facility] [address] [place], [address] Glucose [Mass/Vol] 147 mg/dL High 70-99 [facility] Comment on above: Performed By: #### L 501.4021, L100.0100, L500.2500 #### [facility] [address] [place], [address] Potassium [Moles/Vol] 4.0 mmol/L Normal 3.3-5.1 [facility] Comment on above: Performed By: #### L 501.4021, L100.0100, L500.2500 #### [facility] [address] [place], [address] Sodium [Moles/Vol] 135 mmol/L Normal 133-145 [facility] Comment on above: Performed By: #### L 501.4021, L100.0100, L500.2500 #### [facility] [address] [place], [address] Urea nitrogen [Mass/Vol] 18 mg/dL Normal 4-19 [facility] Comment on above: Performed By: #### L 501.4021, L100.0100, L500.2500 #### [facility] [address] [place], [address] Basophil percentageOrdered B y: Edna Nichols on 07-18-2024 Basophils/100 WBC (Bld) 0.7 % 0-1 [facility] CBC W/Diff, Automatedon Absolute Lymph 1.44 X10 3/uL Normal 0.83-4.51 [facility] Comment on above: Performed By: #### L 501.4021, L100.0100, L500.2500 #### [facility] [address] [place], [address] Absolute Neut 9.1 X10 3/uL High 2.0-7.7 [facility] Comment on above: Performed By: #### L 501.4021, L100.0100, L500.2500 #### [facility] [address] [place], [address] Basophils/100 WBC (Bld) 0.7 % Normal 0-1 [facility] Comment on above: Performed By: #### L 501.4021, L100.0100, L500.2500 #### [facility] [address] [place], [address] Eosinophils/100 WBC (Bld) 1.9 % Normal 0-5 [facility] Comment on above: Performed By: #### L 501.4021, L100.0100, L500.2500 #### [facility] [address] [place], [address] Erythrocyte distribution width (RBC) [Ratio] 13.7 % Normal 11.6-14.6 [facility] Comment on above: Performed By: #### L 501.4021, L100.0100, L500.2500 #### [facility] [address] [place], [address] Hematocrit (Bld) [Volume fraction] 45.1 % Normal 40-54 [facility] Comment on above: Performed By: #### L 501.4021, L100.0100, L500.2500 #### [facility] [address] [place], [address] Hemoglobin (Bld) [Mass/Vol] 14.7 g/dL Normal 13.0-16.5 [facility] Comment on above: Performed By: #### L 501.4021, L100.0100, L500.2500 #### [facility] [address] [place], [address] IG% 0.600 Normal 0.0-0.9 [facility] Comment on above: Result Comment: IG% - Immature Granulocytes (promyelocytes, myelocytes and metamyelocytes) > 1% indicates that a LEFT SHIFT is Present. Performed By: #### L 501.4021, L100.0100, L500.2500 #### [facility] [address] [place], [address] Lymphocytes/100 WBC (Bld) 12.0 % Low 19-41 [facility] Comment on above: Performed By: #### L 501.4021, L100.0100, L500.2500 #### [facility] [address] [place], [address] MCH (RBC) [Entitic mass] 28.5 pg Normal 27.0-32.0 [facility] Comment on above: Performed By: #### L 501.4021, L100.0100, L500.2500 #### [facility] [address] [place], [address] MCHC (RBC) [Mass/Vol] 32.6 g/dL Normal 32-36 [facility] Comment on above: Performed By: #### L 501.4021, L100.0100, L500.2500 #### [facility] [address] [place], [address] MCV (RBC) [Entitic vol] 87.4 fL Normal 80-94 [facility] Comment on above: Performed By: #### L 501.4021, L100.0100, L500.2500 #### [facility] [address] [place], [address] Monocytes/100 WBC (Bld) 9.7 % Normal 0-10 [facility] Comment on above: Performed By: #### L 501.4021, L100.0100, L500.2500 #### [facility] [address] [place], [address] Neutrophils/100 WBC (Bld) 75.1 % High 47-70 [facility] Comment on above: Performed By: #### L 501.4021, L100.0100, L500.2500 #### [facility] [address] [place], [address] Nucleated RBC (Bld) [#/Vol] 0 10*3/uL Normal 0-5 [facility] Comment on above: Performed By: #### L 501.4021, L100.0100, L500.2500 #### [facility] [address] [place], [address] Platelet mean volume (Bld) [Entitic vol] 12.0 fL Normal 6.2-12.0 [facility] Comment on above: Performed By: #### L 501.4021, L100.0100, L500.2500 #### [facility] [address] [place], [address] Platelets (Bld) [#/Vol] 227 10*3/uL Normal 150-450 [facility] Comment on above: Performed By: #### L 501.4021, L100.0100, L500.2500 #### [facility] [address] [place], [address] RBC (Bld) [#/Vol] 5.16 10*6/uL Normal 4.6-6.2 [facility] Comment on above: Performed By: #### L 501.4021, L100.0100, L500.2500 #### [facility] [address] [place], [address] RDW SD 44.6 fl High 35.1-43.9 [facility] Comment on above: Performed By: #### L 501.4021, L100.0100, L500.2500 #### [facility] [address] [place], [address] WBC (Bld) [#/Vol] 12.1 10*3/uL High 4.4-11.0 [facility] Comment on above: Performed By: #### L 501.4021, L100.0100, L500.2500 #### [facility] [address] [place], [address] Carbon dioxide, total [Moles /volume] in Central venous bloodOrdered By: Edna Nichols on 07-18-2024 CO2 [Moles/Vol] 24.3 mmol/L 21.0-32.0 [facility] Chest PA and Lateralon 07-18 Chest PA and Lateral [facility] [address] [place] [address] Chest PA and Lateral MR#: [id number] Acct: [id number] Name: BELL ROBISON Rep #: [id number] : 1965 M 59 From: Jomar zeng MD PCP: Care Physician,No Primary Status: REG ER Study: Chest PA and Lateral Date of Exam: 07/18/24 Exam# [id number] Ordering Dr: Edna Nichols PROCEDURE: CHEST PA AND LATERAL 07/18/2024 REASON FOR EXAM: SOB TECHNIQUE: Frontal and lateral views of the chest. COMPARISON: None FINDINGS: Hardware: None Heart: The heart size is normal. Mediastinum: The mediastinal contour is unremarkable. Lungs: No focal consolidation. No pneumothorax. No pleural effusion. Bones: The bones are unremarkable. RAD/Chest PA and Lateral IMPRESSION: NO ACUTE FINDINGS. Reading Location: [facility] CC: JASON Magdaleno; No Primary Care Physician Lens Coating Technician: Signed Normal [facility] Chloride assayOrdered By: Josselyn Nichols on 07-18-2024 Chloride [Moles/Vol] 100 mmol/L 98-108 [facility] Emergency Department Summary on 07-18-2024 Emergency Department Summary [facility] Medical Records Department [address] [place] [address] Emergency Department Summary 07/18/24 MR#: [id number] Acct: [id number] Name: BELL ROBISON Rep #: [id number] : 1965 59 From: Edna GOMEZ PCP: Care Physician,No Primary Status:DEP ER Location: ED HPI History of Present Illness Chief Complaint: Other, Pain/Inj Narrative Narrative: Patient presenting today with multiple chronic vague complaints. He reports that he has had pain to his bilateral shoulders, wrists, legs, back, and ankles off and on for years. He reports occasional swelling to his ankles bilaterally. He reports that he usually gets a flare of this every 2 to 3 months. He has been seen in [place] [facility] and [place] [facility] for similar symptoms with no clear answer. He also reports chronic dyspnea with exertion that has been ongoing for years, he reports that today it felt worse. He reports a chronic cough with productive sputum, this has not been any worse recently. He denies any history of blood clots or recent surgery/travel/immobiliz ation. He denies cardiac history. He does admit to smoking a pack of cigarettes per day. He does have a history of methamphetamine abuse, when asked if he has used recently he reports that he has been around people at the [employer] who are using it and has been exposed to it but denies recently using. He denies fevers, chills, abdominal pain, chest pain, nausea, and vomiting. [facility] Home Medications ???Medication ???Instructions ???Recorded ???Last Taken ???Type albuterol sulfate 90 mcg/actuation 1 - 2 puff inhalation Q4H PRN AL N 07/18/24 Unknown Rx aerosol inhaler (Ventolin HFA) Wheezing #1 inh Allergy/AdvReac Type Severity Reaction Status Date / Time Penicillins AdvReac Upset Verified 07/18/24 18:32 Stomach Social History Smoking Status: Current every day smoker tobacco type: cigarettes ROS ROS ED Constitutional Constitutional ED: Denies chills or fever(s) Cardiovascular Cardiovascular: Denies chest pain Respiratory/Chest Respiratory/Chest: Reports cough, dyspnea on exertion and sputum; Denies tachypnea or wheezing Gastrointestinal Gastrointestinal: Denies abdominal pain, nausea or vomiting Musculoskeletal Musculoskeletal: Reports arthralgias Integumentary Denies rash Neurologic Neurologic: Denies weakness EXAM Physical Exam Const Vital Signs: 07/18/24 18:08 07/18/24 18:27 07/18/24 18:29 Temperature 97.6 F L Temperature Source Temporal Pulse Rate 125 H 122 H Respiratory Rate 22 H 18 Respiratory Effort Short of Breath Respiratory Pattern Normal Blood Pressure 181/111 H 162/81 H Blood Pressure Mean 134 108 Pulse Ox 100 96 Oxygen Delivery Method Room Air Room Air 07/18/24 19:25 07/18/24 20:21 07/18/24 21:19 Temperature 98 F Temperature Source Pulse Rate 110 H 110 H Respiratory Rate 25 H 25 H Respiratory Effort Respiratory Pattern Blood Pressure 153/86 H 153/86 H Blood Pressure Mean 108 108 Pulse Ox 93 93 Oxygen Delivery Method Room Air Positive well nourished, well developed and no apparent distress General Appearance ED: well developed HEENT Reports normocephalic and head/scalp atraumatic Mouth ED: Yes moist mucous membranes normal Eyes PERRL and EOMs intact bilaterally Neck full ROM and supple Chest Wall inspection of chest normal and palpation of chest normal Resp normal respiratory effort and clear to auscultation bilaterally Cardio regular rate and regular rhythm GI soft to palpation, non-tender, non-distended and no masses Back/Spine normal ROM and normal to inspection Cervical Spine: Negative for cervical spine tenderness Thoracic Spine / Upper Back: Negative for thoracic spinal tenderness Lumbar Spine / Lower Back: Negative for lumbar spinal tenderness Extremity normal to inspection and full ROM Extremity Narrative: Bilateral radial and DP pulses 2+, good cap refill to the upper and lower extremities, 5/5 strength and sensation upper and lower extremities. Patient does not have any tenderness palpation to the upper or lower extremities, he has full range of motion to the extremities. No overlying erythema, warmth, rash, or signs of infection. No lower extremity edema bilaterally. Neuro oriented x3, moves all extremities, no focal motor deficits and no sensory deficits noted Sensorium / Orientation: awake and alert Psych mental status grossly normal and thought process normal Skin no rashes or lesions noted and no wounds Physical Exam Const Vital Signs: 07/18/24 18:08 07/18/24 18:27 07/18/24 18:29 Temperature 97.6 F L Temperature Source Temporal Pulse Rate 125 H 122 H Re (more content not included)... Normal [facility] Eosinophil percentageOrdered By: Edna Nichols on 07-18-2024 Eosinophils/100 WBC (Bld) 1.9 % 0-5 [facility] Erythrocyte distribution wid th ratioOrdered By: Edna Nichols on 07-18-2024 Erythrocyte distribution width (RBC) [Ratio] 13.7 % 11.6-14.6 [facility] Erythrocyte distribution wid th standard deviationOrdered By: Edna Nichols on 07-18-2024 Erythrocyte distribution width (RBC) [Ratio] 44.6 fl High 35.1-43.9 [facility] Glomerular filtration rate ( GFR) estimation/1.73 sq m using serum, plasma, or whole bOrdered By: Edna Nichols on 07-18-2024 GFR/1.73 sq M.predicted among non-blacks MDRD (S/P/Bld) [Vol rate/Area] 89 mL/min/{1.73_m2} >60 [facility] Comment on above: mL/min/1.73m2 CKD-EP I Creatinine Equation (2020) Hematocrit Auto (Bld) [Volum e fraction]Ordered By: Edna Nichols on 07-18-2024 Hematocrit (Bld) [Volume fraction] 45.1 % 40-54 [facility] Hemoglobin measurementOrdere d By: Edna Nichols on 07-18-2024 Hemoglobin (Bld) [Mass/Vol] 14.7 g/dL 13.0-16.5 [facility] Immature granulocytes/100 WB C Auto (Bld)Ordered By: Edna Nichols on 07-18-2024 Immature granulocytes/100 WBC (Bld) 0.600 % 0.0-0.9 [facility] Comment on above: IG% - Immature Granu locytes (promyelocytes, myelocytes and metamyelocytes) > 1% indicates that a LEFT SHIFT is Present. L499.0042on 07-18-2024 Trop T High Sen Normal <=22 [facility] Comment on above: Result Comment: TROY [facility] DISCHARGED Performed By: #### L 499.0042 #### [facility] Laboratory [address] [place], [address] L501.4021on 07-18-2024 Trop T High Sen 19 ng/L Normal <=22 [facility] Comment on above: Performed By: #### L 501.4021, L100.0100, L500.2500 #### [facility] [address] [place], [address] MCV (mean corpuscular volume ) determinationOrdered By: Edna Nichols on 07-18-2024 MCV (RBC) [Entitic vol] 87.4 fL 80-94 [facility] Mean corpuscular hemoglobin (MCH) determinationOrdered By: Edna Nichols on 07-18-2024 MCH (RBC) [Entitic mass] 28.5 pg 27.0-32.0 [facility] Mean corpuscular hemoglobin concentration (MCHC) determinationOrdered By: Edna Nichols on 07-18-2024 MCHC (RBC) [Mass/Vol] 32.6 g/dL 32-36 [facility] Mean platelet volume determi nationOrdered By: Edna Nichols on 07-18-2024 Platelet mean volume (Bld) [Entitic vol] 12.0 fL 6.2-12.0 [facility] Monocyte percentageOrdered B y: Edna Nichols on 07-18-2024 Monocytes/100 WBC (Bld) 9.7 % 0-10 [facility] Neutrophil percentageOrdered By: Edna Nichols on 07-18-2024 Neutrophils/100 WBC (Bld) 75.1 % High 47-70 [facility] Nucleated red blood cell per centageOrdered By: Edna Nichols on 07-18-2024 Nucleated RBC/100 WBC (Bld) [Ratio] 0 % 0-5 [facility] Platelet countOrdered By: Josselyn Nichols on 07-18-2024 Platelets (Bld) [#/Vol] 227 10*3/uL 150-450 [facility] Potassium measurement (mass/ volume)Ordered By: Edna Nichols on 07-18-2024 Potassium (Unsp spec) [Mass/Vol] 4.0 mmol/L 3.3-5.1 [facility] RBC Auto (Bld) [#/Vol]Ordere d By: Edna Nichols on 07-18-2024 RBC (Bld) [#/Vol] 5.16 10*6/uL 4.6-6.2 [facility] Serum creatinine measurement (mass/volume)Ordered By: Edna Nichols on 07-18-2024 Creatinine [Mass/Vol] 0.97 mg/dL 0.70-1.20 [facility] Serum glucose measurement (m ass/volume)Ordered By: Edna Nichols on 07-18-2024 Glucose [Mass/Vol] 147 mg/dL High 70-99 [facility] Serum or plasma calcium merlene urement (mass/volume)Ordered By: Edna Nichols on 07-18-2024 Calcium [Mass/Vol] 9.1 mg/dL 7.6-11.0 [facility] Serum or plasma urea nitroge n measurement (mass/volume)Ordered By: Edna Nichols on 07-18-2024 Urea nitrogen [Mass/Vol] 18 mg/dL 4-19 [facility] Sodium levelOrdered By: Rober Nichols on 07-18-2024 Sodium [Moles/Vol] 135 mmol/L 133-145 [facility] Troponin T.cardiac [Mass/vol ume] in Serum or Plasma by High sensitivity methodOrdered By: Edna Nichols on 07-18-2024 Troponin T.cardiac High sensitivity method [Mass/Vol] 19 ng/L <22 [facility] White blood cell (WBC) count Ordered By: Edna Nichols on 07-18-2024 WBC (Bld) [#/Vol] 12.1 10*3/uL High 4.4-11.0 [facility] .Auto Diffon 05-30-2024 Basophil, Absolute 0.0 10 3/mcL Normal 0.0-0.3 [facility] Comment on above: Performed By: #### B MP, WINDY, ANEU, MDW, GFR, CBC, TROPHS #### [address] [address] Basophils/100 WBC (Bld) 0.3 % Normal 0.0-2.5 [facility] Comment on above: Performed By: #### B MP, ADIFF, ANEU, MDW, GFR, CBC, TROPHS #### [address] [address] Eosinophil, Absolute 0.4 10 3/mcL Normal 0.0-0.7 [facility] Comment on above: Performed By: #### B MP, ADIFF, ANEU, MDW, GFR, CBC, TROPHS #### [address] [address] Eosinophils/100 WBC (Bld) 4.2 % Normal 0.0-6.0 [facility] Comment on above: Performed By: #### B MP, ADIFF, ANEU, MDW, GFR, CBC, TROPHS #### [address] [address] Lymphocyte, Absolute 1.8 10 3/mcL Normal 0.9-4.3 [facility] Comment on above: Performed By: #### B MP, ADIFF, ANEU, MDW, GFR, CBC, TROPHS #### [address] [address] Lymphocytes/100 WBC (Bld) 16.3 % Low 20.0-40.0 [facility] Comment on above: Performed By: #### B MP, ADIFF, ANEU, MDW, GFR, CBC, TROPHS #### [address] [address] Monocyte, Absolute 0.9 10 3/mcL Normal 0.1-1.4 [facility] Comment on above: Performed By: #### B MP, ADIFF, ANEU, MDW, GFR, CBC, TROPHS #### [address] [address] Monocytes/100 WBC (Bld) 8.0 % Normal 2.0-13.0 [facility] Comment on above: Performed By: #### B MP, ADIFF, ANEU, MDW, GFR, CBC, TROPHS #### [address] [address] Neutrophils/100 WBC (Bld) 71.2 % Normal 50.0-75.0 [facility] Comment on above: Performed By: #### B MP, ADIFF, ANEU, MDW, GFR, CBC, TROPHS #### [address] [address] .GFRon 05-30-2024 Estimated Glomerular Filtration Rate 103 ml/min/1.73sqm Normal [facility] Comment on above: Result Comment: Stages of Chronic Kidney Disease (CKD) Stage Description eGFR(ml/min/1.73 sq.m.) CKD 1 Normal kidney function or >=90 normal kindney function with possible kidney damage (ex. Proteinuria) CKD 2 Kidney damage with mild loss 60-89 of kidney function CKD 3a Mild to moderate loss of kidney 45-59 function CKD 3b Moderate to severe loss of 30-44 of kindey function CKD 4 Severe loss of kidney function 15-29 CKD 5 Kidney failure <15 Note: (go live 2024) the eGFR calculation was updated to the 2020 CKD-EPI creatinine equation without a race factor to calculate the eGFR results. Performed By: #### B MP, ADMARTIN, ANEU, MDW, GFR, CBC, TROPHS #### [address] [address] .MDWon 05-30-2024 Monocyte Distribution Width 16.83 Normal 0.00-20.00 [facility] Comment on above: Result Comment: For ED adult patients suspected of sepsis, MDW<=20.0 does not rule out sepsis or risk of sepsis Performed By: #### B MP, ADIFF, ANEU, MDW, GFR, CBC, TROPHS #### [address] [address] .NEUABSon 05-30-2024 Neutrophil, Absolute 7.7 10 3/mcL Normal 2.3-8.1 [facility] Comment on above: Performed By: #### B MP, ADIFF, ANEU, MDW, GFR, CBC, TROPHS #### [address] [address] BMPon 05-30-2024 BUN/Creatinine Ratio 18.7 ratio Normal 10.0-22.0 [facility] Comment on above: Performed By: #### B WINDY WOODALL ANEU, MDW, GFR, CBC, TROPHS #### [address] [address] Calcium [Mass/Vol] 9.6 mg/dL Normal 8.7-10.4 [facility] Comment on above: Performed By: #### B WINDY WOODALL ANEU, MDW, GFR, CBC, TROPHS #### [address] [address] Chloride [Moles/Vol] 104 mmol/L Normal 98-110 [facility] Comment on above: Performed By: #### B WINDY WOODALL ANEU, MDW, GFR, CBC, TROPHS #### [address] [address] CO2 [Moles/Vol] 30 mmol/L Normal 22-32 [facility] Comment on above: Performed By: #### B WINDY WOODALL ANEU, MDW, GFR, CBC, TROPHS #### [address] [address] Creatinine [Mass/Vol] 0.75 mg/dL Normal 0.60-1.40 [facility] Comment on above: Result Comment: Test ing performed on [employer] analyzer using enzymatic creatinine methodology. Performed By: #### B WINDY WOODALL ANEU, MDW, GFR, CBC, TROPHS #### [address] [address] Electrolyte Balance 3.0 mEq/L Low 4.0-15.0 [facility] Comment on above: Performed By: #### B WINDY WOODALL ANEU, MDW, GFR, CBC, TROPHS #### [address] [address] Glucose [Mass/Vol] 90 mg/dL Normal 82-115 [facility] Comment on above: Performed By: #### B WINDY WOODALL ANEU, MDW, GFR, CBC, TROPHS #### [address] [address] Potassium [Moles/Vol] 4.2 mmol/L Normal 3.5-5.0 [facility] Comment on above: Performed By: #### B WINDY WOODALL ANEU, MDW, GFR, CBC, TROPHS #### [place] [address] Sodium [Moles/Vol] 137 mmol/L Normal 136-145 [facility] Comment on above: Performed By: #### B JOSE C, ARACELI TEMPLE MDW, GFR, CBC, TROPHS #### [place] [address] Urea nitrogen [Mass/Vol] 14.0 mg/dL Normal 8.0-22.0 [facility] Comment on above: Performed By: #### B WINDY WOODALL ANEU, MDW, GFR, CBC, TROPHS #### [place] [address] CBCon 05-30-2024 Erythrocyte distribution width (RBC) [Ratio] 15.3 % Normal 11.5-15.5 [facility] Comment on above: Performed By: #### B WINDY WOODALL ANEU, MDW, GFR, CBC, TROPHS #### [place] [address] Hematocrit (Bld) [Volume fraction] 45.6 % Normal 40.0-52.0 [facility] Comment on above: Performed By: #### B WINDY WOODALL ANEU, MDW, GFR, CBC, TROPHS #### [place] [address] Hgb 15.1 G/dL Normal 13.0-17.5 [facility] Comment on above: Performed By: #### B WINDY WOODALL ANEU, MDW, GFR, CBC, TROPHS #### [place] [address] MCH (RBC) [Entitic mass] 28.5 pg Normal 27.0-33.0 [facility] Comment on above: Performed By: #### B JOSE C, ARACELI TEMPLE MDW, GFR, CBC, TROPHS #### [place] [address] MCHC 33.0 G/dL Normal 32.0-36.0 [facility] Comment on above: Performed By: #### B JOSE C, WINDY, ARACELI, W, GFR, CBC, TROPHS #### [place] [address] MCV (RBC) [Entitic vol] 86.4 fL Normal 81.0-100.0 [facility] Comment on above: Performed By: #### B MP, WINDY, ARACELI, MDW, GFR, CBC, TROPHS #### [place] [address] Platelet 318 10 3/mcL Normal 150-450 [facility] Comment on above: Performed By: #### B JOSE C, WINDY, ARACELI, MDW, GFR, CBC, TROPHS #### [place] [address] Platelet mean volume (Bld) [Entitic vol] 8.9 fL Normal 6.4-10.5 [facility] Comment on above: Performed By: #### B JOSE C, WINDY, ARACELI, MDW, GFR, CBC, TROPHS #### [place] [address] RBC 5.28 10 6/mcL Normal 4.50-6.00 [facility] Comment on above: Performed By: #### B JOSE C, WINDY, ANEU, MDW, GFR, CBC, TROPHS #### [place] [id number] WBC 10.8 10 3/mcL Normal 4.5-10.8 [facility] Comment on above: Performed By: #### B JOSE C, WINDY, ARACELI, MDW, GFR, CBC, TROPHS #### [place] [address] LABORATORYOrdered By: SYSTEM SYSTEM on 05-30-2024 Troponin I.cardiac DL <= 0.01 ng/mL [Mass/Vol] 4 ng/L Normal 0 - 54 ng/L [facility] Comment on above: Interpretive Data: High Sensitive Troponin I Reference Ranges: Female: 0-34 ng/L Male: 0-54 ng/L Testing performed on [employer] IM analyzer using direct chemiluminescent technology. Basophils (Bld) [#/Vol] 0.0 103/mcL Normal 0.0 - 0.3 10^3/mcL Workflow SS Basophils/100 WBC (Bld) 0.3 % Normal 0.0 - 2.5 % Workflow SS Calcium [Mass/Vol] 9.6 mg/dL Normal 8.7 - 10. 4 mg/dL ADM SS Chloride [Moles/Vol] 104 mmol/L Normal 98 - 11 0 mEq/L ADM SS CO2 [Moles/Vol] 30 mmol/L Normal 22 - 32 mEq/L ADM SS Creatinine [Mass/Vol] 0.75 mg/dL Normal 0.60 - 1.40 mg/dL ADM SS Comment on above: Interpretive Data: T esting performed on [employer] CH analyzer using enzymatic creatinine methodology. Electrolyte Balance 3.0 mEq/L Low 4.0 - 15 .0 mEq/L ADM SS Eosinophils (Bld) [#/Vol] 0.4 103/mcL Normal 0.0 - 0.7 10^3/mcL Workflow SS Eosinophils/100 WBC (Bld) 4.2 % Normal 0.0 - 6.0 % Workflow SS Erythrocyte distribution width (RBC) [Ratio] 15.3 % Normal 11.5 - 15.5 % Workflow SS Estimated Glomerular Filtration Rate 103 ml/min/1.73sqm Invalid Interpretation Code ADM SS Comment on above: Interpretive Data: Stages of Chronic Kidney Disease (CKD) Stage Description eGFR(ml/min/1.73 sq.m.) CKD 1 Normal kidney function or >=90 normal kindney function with possible kidney damage (ex. Proteinuria) CKD 2 Kidney damage with mild loss 60-89 of kidney function CKD 3a Mild to moderate loss of kidney 45-59 function CKD 3b Moderate to severe loss of 30-44 of kindey function CKD 4 Severe loss of kidney function 15-29 CKD 5 Kidney failure <15 Note: (go live 2024) the eGFR calculation was updated to the 2020 CKD-EPI creatinine equation without a race factor to calculate the eGFR results. Glucose [Mass/Vol] 90 mg/dL Normal 82 - 115 mg/dL ADM SS Hematocrit (Bld) [Volume fraction] 45.6 % Normal 40.0 - 52.0 % AH Workflow SS Hemoglobin (Bld) [Mass/Vol] 15.1 G/dL Normal 13.0 - 17.5 G/dL AH Workflow SS Lymphocytes (Bld) [#/Vol] 1.8 103/mcL Normal 0.9 - 4.3 10^3/mcL AH Workflow SS Lymphocytes/100 WBC (Bld) 16.3 % Low 20.0 - 40.0 % AH Workflow SS MCH (RBC) [Entitic mass] 28.5 pg Normal 27.0 - 33.0 pg AH Workflow SS MCHC 33.0 G/dL Normal 32.0 - 36.0 G/dL AH Workflow SS MCV (RBC) [Entitic vol] 86.4 fL Normal 81.0 - 100.0 fL AH Workflow SS Monocyte distribution width Auto (Bld) [Entitic vol] 16.83 1 Normal 0.00 - 20.00 AH Workflow SS Comment on above: Result Comment: For ED adult patients suspected of sepsis, MDW<=20.0 does not rule out sepsis or risk of sepsis Monocytes (Bld) [#/Vol] 0.9 103/mcL Normal 0.1 - 1.4 10^3/mcL AH Workflow SS Monocytes/100 WBC (Bld) 8.0 % Normal 2.0 - 13.0 % AH Workflow SS Neutrophils (Bld) [#/Vol] 7.7 103/mcL Normal 2.3 - 8.1 10^3/mcL AH Workflow SS Neutrophils/100 WBC (Bld) 71.2 % Normal 50.0 - 75.0 % AH Workflow SS Platelet mean volume (Bld) [Entitic vol] 8.9 fL Normal 6.4 - 10.5 fL AH Workflow SS Platelets (Bld) [#/Vol] 318 103/mcL Normal 150 - 450 10^3/mcL AH Workflow SS Potassium [Moles/Vol] 4.2 mmol/L Normal 3.5 - 5.0 mEq/L AH ADM SS RBC (Bld) [#/Vol] 5.28 106/mcL Normal 4.50 - 6.0 0 10^6/mcL AH Workflow SS Sodium [Moles/Vol] 137 mmol/L Normal 136 - 145 mEq/L ADM SS Troponin I.cardiac DL <= 0.01 ng/mL [Mass/Vol] 6 ng/L Normal 0 - 54 ng/L AH ADM SS Comment on above: Interpretive Data: High Sensitive Troponin I Reference Ranges: Female: 0-34 ng/L Male: 0-54 ng/L Testing performed on [employer] IM analyzer using direct chemiluminescent technology. Urea nitrogen [Mass/Vol] 14.0 mg/dL Normal 8.0 - 22.0 mg/dL ADM SS Urea nitrogen/Creatinine [Mass ratio] 18.7 ratio Normal 10.0 - 22.0 ratio ADM SS WBC (Bld) [#/Vol] 10.8 103/mcL Normal 4.5 - 10.8 10^3/mcL Workflow SS TROPHSon 05-30-2024 High Sensitivity Troponin I 4 ng/L Normal 0-54 [facility] Comment on above: Result Comment: High Sensitive Troponin I Reference Ranges: Female: 0-34 ng/L Male: 0-54 ng/L Testing performed on [employer] IM analyzer using direct chemiluminescent technology. Performed By: #### T [facility] #### [place] [address] High Sensitivity Troponin I 6 ng/L Normal 0-54 [facility] Comment on above: Result Comment: High Sensitive Troponin I Reference Ranges: Female: 0-34 ng/L Male: 0-54 ng/L Testing performed on [employer] IM analyzer using direct chemiluminescent technology. Performed By: #### B MP, WINDY, ANEU, MDW, GFR, CBC, TROPHS #### [place] [address] XR CHEST 1 VIEWon 05-30-2024 XR CHEST 1 VIEW ORIGINAL EXAMINATION: ONE XRAY VIEW OF THE CHEST05/30/2024 1:42 pm XR Chest portable upright COMPARISON: None HISTORY: ORDERING SYSTEM PROVIDED HISTORY: Reason for Exam: chest pain, FINDINGS: No suspicious nodule, acute infiltrate, consolidation,mass, pneumothorax, pleural fluid, or vascular congestion is seen. Heart size and mediastinal contours are within normal limits for age and projection. No acute skeletal abnormality. IMPRESSION: No acute cardiopulmonary process. Interpreted by: Kirti Myers MD Preliminary Report By: Kirti Myers MD Electronically signed By Kirti Myers MD Dictated Date: 05/30/2024 1:49:50 PM Prelim Date: 05/30/2024 1:50:03 PM Sign Date: 05/30/2024 1:50:03 PM Ordering Provider: IZABELA VOGEL [facility] INFLUENZA VIRUS RAPID A/Bon 03-08-2022 INFLUENZA VIRUS RAPID A/B INFLUENZA A POSITIVE INFLUENZA B NEGATIVE INTERNAL NEG QC PASS INTERNAL POS QC PASS EXTERNAL QC DONE? YES SEND TO IC? YES A NEGATIVE TEST RESULT DOES NOT EXCLUDE INFECTION WITH INFLUENZA A OR B. THEREFORE, THE RESULTS OBTAINED FROM THIS FLU TEST SHOULD BE USED IN CONJUCTION WITH CLINICAL FINDINGS TO MAKE AN ACCURATE DIAGNOSIS. A POSITIVE RESULT DOES NOT RULE OUT CO-INFECTIONS WITH OTHER PATHOGENS OR IDENTIFY ANY SPECIFIC INFLUENZA A VIRUS SUBTYPE.CO-INFECTION WITH INFLUENZA A AND B IS RARE. IT IS RECOMMENDED THAT "DUAL POSITIVE" RESULTS BE CONFIRMED BY VIRAL CULTURE OR AN FDA-CLEARED INFLUENZA A AND B MOLECULAR ASSAY. INDIVIDUALS WHO HAVE RECEIVED NASALLY ADMINISTERED INFLUENZA A VACCINE MAY TEST POSITIVE IN COMMERCIALLY AVAILABLE INFLUENZA RAPID DIAGNOSTIC TESTS FOR UP TO THREE DAYS. RESULT CRITICAL? YES { CALLED TO BA/DNN { READ BACK BY [facility] Comment on above: Performed By: #### 2 [id number] #### [facility],[address] [place] [address] EMERGENCY REPORTon 2 EMERGENCY REPORT [facility] EMERGENCY ROOM REPORT NAME ACCOUNT SEX AGE ADMIT DISCHARGE PT MED. RECORD# NUMBER DATE DATE TYPE RICKI, [id number] M 56 09/12/21 09/13/21 2 BELL Zeng [id number] ROOM: [facility] DATE OF : 1965 DICTATING PHYSICIAN: Mauro Sanchez ADDENDUM: DIAGNOSTIC DATA: CT scan of the chest showed no pulmonary embolism. No thoracic aortic aneurysm or dissection. No airspace disease. There was a noncalcified 0.7 cm right middle lobe nodule, small right pleural effusion. No pneumothorax. No adenopathy. Upper abdomen was without acute process. Bones without acute process. PLAN/DISPOSITION: I spoke with Dr. Almanzar from the Hospitalist service, and he did agree to admit the patient for a chest pain workup. I have discussed admission with the patient, and he is agreeable. Dictated By: Mauro Sanchez DO 09/13/21 01:57 JOB #: [id number] Transcribed By: am 09/14/21 12:17 Electronically signed by: E-Sign: Dr. Mauro Sanchez D.O. 09/26/21 09:21 Page 1 of 1 RICKI, BELL Zeng Emergency Room Report Normal [facility] EMERGENCY REPORT [facility] EMERGENCY ROOM REPORT NAME ACCOUNT SEX AGE ADMIT DISCHARGE PT MED. RECORD# NUMBER DATE DATE TYPE RICKI [id number] Yasemin 56 09/12/21 09/13/21 2 BELL Zeng [id number] ROOM: [facility] DATE OF : 1965 DICTATING PHYSICIAN: Mauro Sanchez Date seen is September 12, 2021 at 2125 hours. HISTORY OF PRESENT ILLNESS: The patient is a 56-year-old male incarcerated at the [facility] started complaining of some midsternal chest pain that started around 3:30 p.m. this afternoon while at rest. He denies any radiation of the pain. He describes it as a sharp pain, but he did admit to associated shortness of breath. He is pain free now, but does estimate that the chest pain did last for 3 to 4 hours. He has not had any previous stress test. He did mention that his blood pressure was running high tonight. They had checked [facility] the [facility] living, and he states it was running high. He thought the numbers were 186/111 or something like that. He is a smoker. He says he has never been definitively diagnosed with COPD, but he thinks he may have it. He does not have a primary care physician. PAST MEDICAL HISTORY: Past medical history of questionable COPD. PAST SURGICAL HISTORY: Past surgeries include orthopedic right hand surgery. SOCIAL HISTORY: The patient is a smoker, 1 pack per day for the past 35 years. 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 He denies any alcohol use. He is presently incarcerated at the [facility]. REVIEW OF SYSTEMS: The patient does admit to chest pain and shortness of breath. He does admit to occasional nonproductive cough. He does complain of some wheezing off and on. He denies any abdominal pain. He did complain of some nausea earlier, but denies any vomiting, diarrhea, constipation, melena, hematochezia, headache, numbness, unsteady gait, weakness, neck or back pain, joint pain, skin rash or swelling, hives, hayfever, or swollen glands. Further review of systems is negative. PHYSICAL EXAMINATION: VITAL SIGNS: Temperature is 97.9, pulse 92, respiratory rate 18, blood pressure 163/103, pulse oximetry 97% on room air, weight 180 pounds. GENERAL APPEARANCE: The patient is alert and oriented x3. He presently appears in no acute distress. He is pleasant and cooperative. He appears friendly and talkative. He makes eye contact. HEENT: Head appears atraumatic. Pupils are equal and reactive to light. Red reflex intact bilaterally. Extraocular muscles are intact. No conjunctival injection. Nose: Exhibits no rhinorrhea or epistaxis. Mouth: Mucous membranes are moist. No pharyngeal erythema. Uvula is midline and elevates. NECK: Neck is supple. Page 1 of 3 [facility] Emergency Room Report BLEL ROBISON : 1965 Trachea is midline. No JVD or lymphadenopathy. No posterior cervical tenderness. No nuchal rigidity. LUNGS: Demonstrate diminished breath sounds bilaterally. Presently, I note no wheezing. CV: Heart rate and rhythm are regular, somewhat distant heart sounds, but no murmur noted. ABDOMEN: Abdomen is soft and nontender with normoactive bowel sounds x4 quadrants. No guarding or rigidity. No rebound. BACK: Back exhibits no midline or paraspinal region tenderness. No increased paraspinal muscle rigidity. Negative Fran's sign. EXTREMITIES: No edema or cyanosis. Peripheral pulses are intact. No motor or sensory deficits are noted. Hand blockers skiver are strong and symmetric. SKIN: Skin is warm and dry. No diaphoresis or rash. NEUROLOGIC: Neurologic examine shows the patient to be alert and oriented x4. No motor or sensory deficits are noted. Normal speech. No conversational dyspnea noted at rest. DIAGNOSTIC DATA: EKG showed a normal sinus rhythm at a rate of 97 beats per minute. No acute ST segment changes were noted. [place] is approximately 60 degrees. Chest x-ray did show some blunting to the right costovertebral angle consistent with a pleural effusion. His D-dimer was elevated, so I did send him over for a CT scan of his chest, and that is pending. His white count is 7.6, hemoglobin 14.6, hematocrit 44.2, and platelet count 204,000. D-dimer is elevated at 855. Sodium was 138, potassium 4.1, chloride 102, CO2 31.3, BUN 18, creatinine 1.16, and glucose 111. Liver functions all came back within normal limits. Lactate was normal at 1.2. Anion gap was 9. Troponin was normal at 4.8. BNP was normal at 66. Urinalysis showed 25 of leukocyte esterase with 1 to 5 white cells per high-powered field, trace of bacteria, and no epithelial cells. Specific gravity was 1.010. I do have 2 blood cultures pending. His influenza virus swab came back negative. His blood gas on room air showed a pH of 7.44, pCO2 45, pO2 75, bicarbonate 30, and O2 saturation 95%. EMERGENCY DEPARTMENT COURSE AND TREATMENT/PLAN/DISPOSITI ON: I did give him both an albuterol and a DuoNeb aerosol treatment and his lungs are still diminished, but he st (more content not included)... Normal [facility] ARTERIAL BLOOD GAS ANALYSISo n 09-13-2021 ALLENS TEST Positive Normal [facility] Comment on above: Result Comment: { TI ME CALLED 2220 Performed By: #### 2 [id number] #### [facility],[address] [place] [address] ARTERIAL BLOOD GAS ANALYSIS Normal [facility] Comment on above: Result Comment: CHANTELLE RIAL BLOOD GAS Performed By: #### 2 93819 #### [facility],[address] [place] [address] BE 6 High -2 - 3 [facility] Comment on above: Performed By: #### 2 17075 #### [facility],[address] [place] [address] HCO3 (Bld) [Moles/Vol] 30 mmol/L High 22 - 26 [facility] Comment on above: Performed By: #### 2 02063 #### [facility],[address] [place] [address] Heart rate 94 /min [facility] Comment on above: Performed By: #### 2 62020 #### [facility],[address] [place] [address] MODALITY RA Normal [facility] Comment on above: Performed By: #### 2 83270 #### [facility],[address] [place] [address] PCO2 45 mm Hg Normal 35 - 45 [facility] Comment on above: Performed By: #### 2 57444 #### [facility],[address] [place] [address] pH (Bld) 7.44 [pH] Normal 7.35 - 7.45 [facility] Comment on above: Performed By: #### 2 83938 #### [facility],[address] [place] [address] PO2 75 mm Hg Low 80 - 105 [facility] Comment on above: Performed By: #### 2 02916 #### [facility],[address] [place] [address] SAMPLE SITE LR Normal [facility] Comment on above: Performed By: #### 2 20722 #### [facility],[address] [place] [address] SaO2 95 Normal 95 - 98 [facility] Comment on above: Result Comment: TIME RESULT CALLED _2219 09/12/21.2212.JERRY. { FIO2/LPM 21% Performed By: #### 2 26366 #### [facility],[address] [place] [address] TOTAL RR 18 Normal [facility] Comment on above: Performed By: #### 2 68242 #### [facility],[address] [place] [address] VENT N/A Normal [facility] Comment on above: Performed By: #### 2 55338 #### [facility],[address] [place] [address] CBC + DIFFon 09-13-2021 Baso # 0.10 x10EE3/UL Normal 0.00 - 0.10 [facility] Comment on above: Performed By: #### 2 63060 #### [facility],[address] [place] [address] Basophils/100 WBC (Bld) 1.4 % Normal 0.0 - 2.0 [facility] Comment on above: Performed By: #### 2 21414 #### [facility],[address] [place] [address] CBC + DIFF Normal [facility] Comment on above: Result Comment: CBC- COMPLETE BLOOD COUNT Performed By: #### 2 07064 #### [facility],[address] [place] [address] EO # 0.60 x10EE3/UL High 0.00 - 0.50 [facility] Comment on above: Performed By: #### 2 35705 #### [facility],[address] [place] [address] Eosinophils/100 WBC (Bld) 7.9 % High 0.0 - 7.0 [facility] Comment on above: Performed By: #### 2 21960 #### [facility],[address] [place], [place] [id number] Erythrocyte distribution width (RBC) [Ratio] 14.7 % Normal 12.0 - 15.6 [facility] Comment on above: Performed By: #### 2 25017 #### [facility],[address] [place] [address] Hematocrit (Bld) [Volume fraction] 44.2 % Normal 40.0 - 52.0 [facility] Comment on above: Performed By: #### 2 05156 #### [facility],[address] [place] [address] Hemoglobin (Bld) [Mass/Vol] 14.6 g/dL Normal 13.0 - 17.5 [facility] Comment on above: Performed By: #### 2 58278 #### [facility],[address] [place] [address] 95985 Lymph # 1.90 x10EE3/UL Normal 0.80 - 2.80 [facility] Comment on above: Performed By: #### 2 52522 #### [facility],[address] [place] [address] 48331 Lymphocytes/100 WBC (Bld) 24.8 % Normal 20.0 - 45.0 [facility] Comment on above: Performed By: #### 2 11948 #### [facility],[address] [place] [address] 77884 MANUAL DIFF N/A Normal [facility] Comment on above: Performed By: #### 2 19954 #### [facility],[address] [place], [place] [id number] MCH (RBC) [Entitic mass] 29 pg Normal 27 - 33 [facility] Comment on above: Performed By: #### 2 02810 #### [facility],[address] [place] [address] MCHC 33 X10 3 Normal 32 - 36 [facility] Comment on above: Performed By: #### 2 16280 #### [facility],[address] [place] [address] 15904 MCV (RBC) [Entitic vol] 86 fL Normal 81 - 98 [facility] Comment on above: Performed By: #### 2 78486 #### [facility],[address] [place] [address] 04557 Mcdonald # 0.90 x10EE3/UL Normal 0.20 - 1.00 [facility] Comment on above: Performed By: #### 2 31515 #### [facility],[address] [place] [address] 60422 MONOS % 11.5 % High 0.0 - 10.0 [facility] Comment on above: Performed By: #### 2 34528 #### [facility],[address] [place] [address] 26821 Morphology Artur (Bld) [Interp] N/A Normal [facility] Comment on above: Result Comment: {CD] Performed By: #### 2 51228 #### [facility],[address] [place] [address] 91439 Neut # 4.20 x10EE3/UL Normal 1.50 - 7.10 [facility] Comment on above: Performed By: #### 2 35658 #### [facility],[address] [place] [address] 88834 Neutrophils/100 WBC (Bld) 54.4 % Normal 46.0 - 76.0 [facility] Comment on above: Performed By: #### 2 70540 #### [facility],[address] [place] [address] 90425 PLATELET 204 x10EE3/UL Normal 150 - 450 [facility] Comment on above: Performed By: #### 2 35353 #### [facility],[address] [place] [address] 11399 Platelet mean volume (Bld) [Entitic vol] 8.6 fL Normal 6.4 - 10.5 [facility] Comment on above: Result Comment: AUTO MATED DIFFERENTIAL Performed By: #### 2 52348 #### [facility],[address] [place] [address] 32173 RBC 5.12 x 10EE6/UL Normal 4.50 - 6.00 [facility] Comment on above: Performed By: #### 2 47704 #### [facility],[address] [place] [address] 65888 WBC 7.6 x 10EE3/UL Normal 4.5 - 10.8 [facility] Comment on above: Performed By: #### 2 36264 #### [facility],[address] [place] [address] 06679 CHEST 1 VIEWon 09-13-2021 CHEST 1 VIEW [place] [address] Patient: BELL ROBISON Phone#: : 1965 Age: 56 Gender: M Pt. Type: ER Account: [id number] Location: 010 Ordering: MAURO SANCHEZ Exam Date: 09/12/2021/22:25 Family Phys: Charge Code: [id number] Physician: Wolfe Order #: [id number] DLP Dose#: PROCEDURE: X-RAY CHEST 1 VIEW COMPARISON: [facility], CT, CHEST PE W CON, 09/12/2021, 23:39. INDICATIONS: COPD. FINDINGS: LUNGS: Patient's chin overlaps the right lung apex, somewhat limiting the evaluation. Mild hyperaeration of the lung newberry. VASCULATURE: Normal. Unremarkable pulmonary vasculature. CARDIAC: Normal. No cardiac silhouette abnormality or cardiomegaly. MEDIASTINUM: Normal. No visible mass or adenopathy. PLEURA: There is blunting of the right costophrenic angle, is consistent with small pleural effusion and probable associated atelectasis. Cannot exclude small superimposed infiltrate. BONES: Normal. No fracture or visible bony lesion. OTHER: Monitoring leads project across the thorax CONCLUSION: 1. Small right pleural effusion Dictated by: Siomara Pelaez MD on 09/13/2021 at 8:57 Approved by: Siomara Pelaez MD on 09/13/2021 at 8:59 Normal [facility] CMP with eGFRon 09-13-2021 AGE 56 years Normal [facility] Comment on above: Performed By: #### 2 65627 #### [facility],[address] [place] [address] 98490 Albumin [Mass/Vol] 3.4 g/dL Normal 3.4 - 5.0 [facility] Comment on above: Performed By: #### 2 02843 #### [facility],[address] [place] [address] 35789 Albumin/Globulin [Mass ratio] 0.6 {ratio} Low 0.9 - 1.6 [facility] Comment on above: Performed By: #### 2 02753 #### [facility],[address] [place] [address] 92823 ALK PHOS 90 U/L Normal 46 - 116 [facility] Comment on above: Performed By: #### 2 58676 #### [facility],[address] [place] [address] 20430 ALT [Catalytic activity/Vol] 59 U/L Normal 16 - 63 [facility] Comment on above: Performed By: #### 2 12125 #### [facility],[address] [place] [address] 52056 Anion gap [Moles/Vol] 9 mmol/L Low 10 - 20 [facility] Comment on above: Performed By: #### 2 23850 #### [facility],[address] [place] [address] 04771 AST [Catalytic activity/Vol] 32 U/L Normal 15 - 37 [facility] Comment on above: Performed By: #### 2 34143 #### [facility],[address] [place] [address] 45684 B/C RATIO 16 ratio Normal 0 - 30 [facility] Comment on above: Performed By: #### 2 50789 #### [facility],[address] [place] [address] 30375 Bilirubin [Mass/Vol] 0.3 mg/dL Normal 0.2 - 1.0 [facility] Comment on above: Performed By: #### 2 07379 #### [facility],[address] [place] [address] 53332 Calcium [Mass/Vol] 9.0 mg/dL Normal 8.5 - 10.1 [facility] Comment on above: Performed By: #### 2 17666 #### [facility],[address] [place] [address] 01719 Chloride [Moles/Vol] 102 mmol/L Normal 98 - 107 [facility] Comment on above: Performed By: #### 2 27228 #### [facility],[address] [place] [address] 99080 CMP with eGFR Normal [facility] Comment on above: Result Comment: COMP REHENSIVE METABOLIC PANEL Performed By: #### 2 45713 #### [facility],[address] [place] [address] 15800 CO2 [Moles/Vol] 31.3 mmol/L Normal 21.0 - 32.0 [facility] Comment on above: Performed By: #### 2 98414 #### [facility],[address] [place] [address] 96734 Creatinine [Mass/Vol] 1.16 mg/dL Normal 0.70 - 1.30 [facility] Comment on above: Performed By: #### 2 84971 #### [facility],[address] [place] [address] 52119 GFR/1.73 sq M.predicted among non-blacks MDRD (S/P/Bld) [Vol rate/Area] mL/min/{1.73_m2} Normal 60 - 999 [facility] Comment on above: Performed By: #### 2 99804 #### [facility],[address] [place] [address] 05242 Result Comment: ACCO RDING TO THE NATIONAL KIDNEY DISEASE EDUCATION PROGRAM(NKDE), A NORMAL eGFR IS A VALUE GREATER THAN OR EQUAL TO 60 ML/MIN/1.73 SQ METERS. CHRONIC KIDNEY DISEASE: <60mL/MIN/1.73 SQ METERS KIDNEY FAILURE: <15mL/MIN/1.73 SQ METERS THIS TEST SHOULD ONLY BE USED FOR PATIENTS 18 YEARS OF AGE AND OLDER. Globulin (S) [Mass/Vol] 5.3 g/dL High 1.5 - 3.8 [facility] Comment on above: Performed By: #### 2 56879 #### [facility],[address] [place] [address] 95156 Glucose [Mass/Vol] 111 mg/dL High 74 - 106 [facility] Comment on above: Performed By: #### 2 90679 #### [facility],[address] [place] [address] 44700 Potassium [Moles/Vol] 4.1 mmol/L Normal 3.5 - 5.1 [facility] Comment on above: Performed By: #### 2 26156 #### [facility],[address] [place] [address] 90909 Protein [Mass/Vol] 8.7 g/dL High 6.4 - 8.2 [facility] Comment on above: Performed By: #### 2 76820 #### [facility],[address] [place] [address] 92796 Sodium [Moles/Vol] 138 mmol/L Normal 136 - 145 [facility] Comment on above: Performed By: #### 2 30007 #### [place] [id number] Urea nitrogen [Mass/Vol] 18 mg/dL Normal 7 - 18 [facility] Comment on above: Performed By: #### 2 78999 #### [place] [id number] CORONAVIRUS PCR - [facility] 09-13-2021 SARS-CoV-2 (COVID-19) RNA KAVITA+probe Ql (Unsp spec) Negative Normal NORMAL: NEGATIVE [facility] Comment on above: Performed By: #### 2 58625 #### [address] [address] SEND TO IC? NO Normal [facility] Comment on above: Result Comment: RESU LTS FAXED TO INFECTION CONTROL. SARS-CoV-2 THIS TEST IS BEING USED UNDER THE FDA EUA PROCEDURE. THIS ASSAY HAS BEEN VALIDATED IN THE [facility] FOR USE WITH NASOPHARYNGEAL SPECIMENS IN CARRIER CLINIC. INTERPRETIVE DATA LABORATORY TEST RESULTS SHOULD ALWAYS BE CONSIDERED IN THE CONTEXT OF CLINICAL OBSERVATIONS AND EPIDEMIOLOGICAL DATA IN MAKING FINAL DIAGNOSIS AND PATIENT MANAGEMENT DECISIONS. PATIENT MANAGEMENT SHOULD FOLLOW CURRENT CDC GUIDELINES. A POSITIVE TEST RESULT FOR COVID-19 INDICATES THAT RNA FROM SARS-CoV-2 WAS DETECTED, AND THE PATIENT IS INFECTED WITH THE VIRUS AND PRESUMED TO BE CONTAGIOUS. A NEGATIVE TEST RESULT FOR THIS TEST MEANS THAT SARS-CoV-2 RNA WAS NOT PRESENT IN THE SPECIMEN ABOVE THE LIMIT OF DETECTION. HOWEVER, A NEGATVIE RESULT DOES NOT RULE OUT COVID-19 AND SHOULD NOT BE USED THE SOLE BASIS FOR TREATMENT OR PATIENT MANAGEMENT DECISIONS. A NEGATIVE RESULT DOES NOT EXCLUDE THE POSSIBILITY OF COVID-19. WHEN DIAGNOSTIC TESTING IS NEGATIVE, THE POSSIBLILTY OF A FALSE NEGATIVE RESULT SHOULD BE CONSIDERED IN THE CONTEXT OF A PATIENT'S RECENT EXPOSURES AND THE PRESENCE OF CLINICAL SIGNS AND SYMPTOMS CONSISTENT WITH COVID-19. THE POSSIBILITY OF A FALSE NEGATIVE RESULT SHOULD ESPECIALLY BE CONSIDERED IF THE PATIENT'S RECENT EXPOSURES OR CLINICAL PRESENTATION INDICATE THAT COVID-19 IS LIKELY, AND DIAGNOSTIC TESTS FOR OTHER CAUSES OF ILLNESS (e.g., OTHER RESPIRATORY ILLNESS) ARE NEGATIVE. IF COVID-19 IS STILL SUSPECTED BASED ON EXPOSURE HISTORY TOGETHER WITH OTHER CLINICAL FINDINGS, RE-TESTED SHOULD BE CONSIDERED BY HEALTHCARE PROVIDERS IN CONSULTATION WITH PUBLIC HEALTH AUTHORITIES. Performed By: #### 2 22669 #### [place] [address] [address] CHEST (PE PROTOCOL)on CT CHEST (PE PROTOCOL) [place] [address] Patient: BELL ROBISON Phone#: : 1965 Age: 56 Gender: M Pt. Type: ER Account: [id number] Location: [facility] Ordering: MAURO SANCHEZ Exam Date: 09/12/2021/23:39 Family Phys: Charge Code: [id number] Physician: Wolfe Order #: [id number] DLP Dose#: 6.70 PROCEDURE: CT CHEST WITH CONTRAST FOR PE COMPARISON: None. INDICATIONS: Chest pain. TECHNIQUE: After obtaining the patient's consent, CT images were obtained with non-ionic intravenous contrast material. Multi-planar images were created to optimize visualization of vascular anatomy with MPR/MIPS and 3D imaging. All CT scans at this facility use dose modulation, iterative reconstruction, and/or weight based dosing when appropriate to reduce radiation dose to as low as reasonably achievable. IV CONTRAST: Omnipaque 350,100ml TOTAL DOSE: 6.70 CTDIvol(mGy) FINDINGS: VASCULATURE: No pulmonary embolism AORTA: No aortic aneurysm. There are atherosclerotic calcifications of the aorta and arch vessels. LUNGS: Right middle lobe pulmonary nodule measuring 0.4 x 0.5 x 0.6 cm. There is compressive atelectasis in the right lower lobe secondary to small pleural effusion. Cannot exclude superimposed infiltrate. DIANNA: Normal. No mass or adenopathy. MEDIASTINUM: Normal. No mass or adenopathy. CARDIAC: Coronary artery calcifications. PLEURA: Small right pleural effusion CHEST WALL: Normal. No mass or axillary adenopathy. LIMITED ABDOMEN: Small hiatal hernia. 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 OTHER: Negative. Continued Report - Page 2 of 2 Patient: BELL ROBISON Phone#: : 1965 Age: 56 Gender: M Pt. Type: ER Account: [id number] Location: [facility] Ordering: MAURO SANCHEZ Exam Date: 09/12/2021/23:39 Family Phys: Charge Code: [id number] Physician: Wolfe Order #: [id number] DLP Dose#: 6.70 CONCLUSION: 1. No pulmonary embolism. 2. Small right pleural effusion with associated atelectasis. Cannot exclude superimposed infiltrate. 3. Right middle lobe pulmonary nodule. According to the Fleischner society guidelines in a low risk patient recommend follow-up CT at 6-[address] at 18-24 months. In a high risk patient recommend follow-up CTs at 6-12 months and 18-24 months. Dictated by: Siomara Pelaez MD on 09/13/2021 at 13:31 Approved by: Siomara Pelaez MD on 09/13/2021 at 13:46 Normal [facility] CULTURE BLOODon 09-13-2021 Microscopic examination of blood, culture CULTURE BLOOD CULTURE BLOOD SET: 2 of 2 24HOUR REPORT NEGATIVE 48HOUR REPORT NEGATIVE 72HOUR REPORT NEGATIVE M I C R O B I O L O G Y R E P O R T FINAL --------- Antimicrobial Susceptibility and Organism Identification Report Specimen Number : [id number] Requested : 09/12/21 Specimen Source : BLOOD Collected : 09/12/21 22:19 [facility] : EMERGENCY ROOM Received : 09/12/21 22:19 Requesting Physician : LAURA Patient/Specimen Tests and Comments Specimen Comments FINAL REPORT: NO GROWTH AT 5 DAYS Tech : __ Source : BLOOD ID # : [id number] FINAL Report Date : / / : Collected : 09/12/21 22:19 09/18/21.1517.EMMA. 09/18/[email or web address].COMPLE TE 2 of 2 NEGATIVE NEGATIVE NEGATIVE Normal [facility] Comment on above: Performed By: #### 2 17072 #### [facility],[address] [place] [address] 45083 Microscopic examination of blood, culture CULTURE BLOOD CULTURE BLOOD SET: 1 of 2 24HOUR REPORT NEGATIVE 48HOUR REPORT NEGATIVE 72HOUR REPORT NEGATIVE M I C R O B I O L O G Y R E P O R T FINAL --------- Antimicrobial Susceptibility and Organism Identification Report Specimen Number : [id number] Requested : 09/12/21 Specimen Source : BLOOD Collected : 09/12/21 22:17 [facility] : EMERGENCY ROOM Received : 09/12/21 22:17 Requesting Physician : LAURA Patient/Specimen Tests and Comments Specimen Comments FINAL REPORT: NO GROWTH AT 5 DAYS Tech : __ Source : BLOOD ID # : [id number] FINAL Report Date : / / : Collected : 09/12/21 22:17 09/18/21.1517.BKO. 09/18/21.1517.BKO.COMPLE TE 1 of 2 NEGATIVE NEGATIVE NEGATIVE Normal [facility] Comment on above: Performed By: #### 2 14578 #### [facility],[address] [place] [address] CV ECHO [facility] CV ECHO [place] [address] Patient: BELL ROBISON Phone#: : 1965 Age: 56 Gender: M Pt. Type: ER Account: [id number] Location: [facility] Ordering: TEENA ALMANZAR Exam Date: 09/13/2021/8:47 Family Phys: Charge Code: 537055 Physician: Wolfe Order #: [id number] DLP Dose#: PROCEDURE: ECHOCARDIOGRAM WITH DOPPLER AND COLOR FLOW HISTORY: Patient is a 56-year-old male with chest pain INDICATIONS: Dyspnea COMPARISON: None. TECHNIQUE: A 2-D ultrasound, color spectral Doppler and M-mode evaluation of the heart and great vessels. PATIENT MEASUREMENTS: Height (in.): 70 BSA: 2.1 Weight (lbs.): 193 BP: 165/94 Java Jsf Developer: LUCY M MODE 2D MEASUREMENTS AND CALCULATIONS: LVIDd: 4.69 cm LVIDs: 3.12 cm IVSd: 1.16 cm LVPWd: 1.18 cm LVOT diam: 2.2 cm FS: 33.54 % Ao Root diam: 3.56 cm LA diam: 3.58 cm LA Volume Index: 24 mL/m2 LA A4 Area: 16.06 cm2 RA A4 Area: 13.1 cm2 RVDd: 2.96 cm TAPSE: 22 mm DOPPLER MEASUREMENTS AND CALCULATIONS MITRAL MV E MAX sergey: 115 cm/sec Lat Peak E' Sergey 5 cm/sec Septal Peak E' SERGEY 6 cm/sec Continued Report - Page 2 of 3 Patient: BELL ROBISON Phone#: : 1965 Age: 56 Gender: M Pt. Type: ER Account: [id number] Location: [facility] Ordering: TEENA WHALENORLANDO Exam Date: 09/13/2021/8:47 Family Phys: Charge Code: 623345 Physician: Wolfe Order #: [id number] DLP Dose#: AORTIC Ao V2 max: 1.60 m/s Ao max P.25 mm[Hg] LV V1 Max 1.22 m/s LV V1 Max PG 5.91 mm[Hg] PULMONIC PA V2 Max 1.19 m/s PA Max PG 5.64 mm[Hg] TRICUSPID TR Max Sergey 1.75 m/s TR max PG 12.19 mm[Hg] RVSP 2D/M-MODE AND COLOR FLOW LEFT VENTRICLE: Left ventricle is normal in size and thickness. Systolic ejection fraction is 60-65%. There are no regional wall motion abnormality seen. WALL MOTION: 1 - Basal anterior: Normal. 7 - Mid anterior: Normal. 13 - Apical anterior: Normal. 2 - Basal anteroseptal: Normal. 8 - Mid anteroseptal: Normal. 14 - Apical septal: Normal. 3 - Basal inferoseptal: Normal. 9 - Mid inferoseptal: Normal. 15 - Apical inferior: Normal. 4 - Basal inferior: Normal. 10-Mid inferior: Normal. 16 - Apical lateral: Normal. 5 - Basal inferolateral: Normal. 11-Mid inferolateral: Normal. 6 - Basal anterolateral: Normal. 12-Mid anterolateral: Normal. RIGHT VENTRICLE: Right ventricle is normal in size and systolic function LEFT ATRIUM: Left atrium is normal in size. RIGHT ATRIUM: Right atrium is normal in size. ATRIAL SEPTUM: There is no large interatrial shunt seen. PFO was not assessed. MITRAL VALVE: Mitral valve appears normal in structure. There is trivial regurgitation no stenosis seen TRICUSPID VALVE: Tricuspid valve appears normal in structure. There is trivial regurgitation no stenosis seen AORTIC VALVE: Aortic valve is trileaflet. There is no regurgitation or stenosis seen. PULMONIC VALVE: Pulmonic valve is inadequately visualized. Doppler shows no significant regurgitation or stenosis AORTIC ROOT: Aortic root is normal in size. AORTIC ARCH: Inadequately visualized DESC THORACIC AORTA: Inadequately visualized IVC/SVC: IVC is normal in size with more than 50% collapse of inspiration. Estimated right atrial pressure is 3 mm Hg. PULMONARY VEINS: Normal pulmonic vein flow PERICARDIUM: There is no pericardial effusion seen CONCLUSION: Continued Report - Page 3 of 3 Patient: BELL ROBISON Phone#: : 1965 Age: 56 Gender: M Pt. Type: ER Account: [id number] Location: [facility] Ordering: TEENA ALMANZAR Exam Date: 09/13/2021/8:47 Family Phys: Charge Code: [id number] Physician: Wolfe Order #: [id number] DLP Dose#: 1. Left ventricle is normal in size and thickness. Systolic ejection fraction is 60-65% with normal wall motion. 2. There are no significant valvular dysfunction seen. 3. Right ventricle is normal in size and systolic function 4. TR velocity is inadequate to calculate for right ventricular systolic pressure Dictated by: MELISSA CARMONA MD on 09/13/2021 at 9:55 Approved by: MELISSA CARMONA MD on 09/13/2021 at 10:14 Normal [facility] D-DIMER, QUANTITATIVEon 07-0 D-DIMER QUANT 855 ng/ml High 0 - 230 [facility] Comment on above: Performed By: #### 2 34339 #### [facility],[address] [place], [place] [id number] D-DIMER, QUANTITATIVE Normal [facility] Comment on above: Result Comment: EMELI T D-DIMER Performed By: #### 2 76081 #### [facility],[address] [place], [place] [id number] INFLUENZA VIRUS RAPID A/Bon 09-13-2021 INFLUENZA VIRUS RAPID A/B INFLUENZA A NEGATIVE INFLUENZA B NEGATIVE INTERNAL NEG QC PASS INTERNAL POS QC PASS EXTERNAL QC DONE? YES SEND TO IC? NO A NEGATIVE TEST RESULT DOES NOT EXCLUDE INFECTION WITH INFLUENZA A OR B. THEREFORE, THE RESULTS OBTAINED FROM THIS FLU TEST SHOULD BE USED IN CONJUCTION WITH CLINICAL FINDINGS TO MAKE AN ACCURATE DIAGNOSIS. A POSITIVE RESULT DOES NOT RULE OUT CO-INFECTIONS WITH OTHER PATHOGENS OR IDENTIFY ANY SPECIFIC INFLUENZA A VIRUS SUBTYPE.CO-INFECTION WITH INFLUENZA A AND B IS RARE. IT IS RECOMMENDED THAT "DUAL POSITIVE" RESULTS BE CONFIRMED BY VIRAL CULTURE OR AN FDA-CLEARED INFLUENZA A AND B MOLECULAR ASSAY. INDIVIDUALS WHO HAVE RECEIVED NASALLY ADMINISTERED INFLUENZA A VACCINE MAY TEST POSITIVE IN COMMERCIALLY AVAILABLE INFLUENZA RAPID DIAGNOSTIC TESTS FOR UP TO THREE DAYS. Normal [facility] Comment on above: Performed By: #### 2 01604 #### [facility],[address] [place], [place] [id number] LACTATEon 09-13-2021 Lactate [Moles/Vol] 1.2 mmol/L Normal 0.4 - 2.0 [facility] Comment on above: Performed By: #### 2 27433 #### [facility],[address] [place] [address] 15821 NM CARDIAC STRESS (SPECT) W/ [facility] 09-13-2021 NM CARDIAC STRESS (SPECT) W/[address] [address] Patient: BELL ROBISON Phone#: : 1965 Age: 56 Gender: M Pt. Type: ER Account: [id number] Location: [facility] Ordering: GREGROSANNAHELENA ALMANZAR Exam Date: 09/13/2021/7:11 Family Phys: Charge Code: [id number] Physician: Wolfe Order #: [id number] DLP Dose#: CORRECTION Corrected on: 09/13/2021; PROCEDURE: CARDIAC STRESS SPECT WITH LEXISCAN HISTORY: Patient is a 56-year-old male with chest pain. COMPARISON: None. INDICATIONS: Chest pain, HTN TECHNIQUE: Resting and post Lexiscan stress SPECT images acquired in the horizontal long, vertical long and short axis views. Protocol: Lexiscan Duration: 0.4mg over 10 seconds Peak Heart Rate: 155 bpm, which is 95% of maximum predicted heart rate. Workload: not applicable REST DOSE: 11.3 mCi Sestamibi. STRESS DOSE: 34.5 mCi Sestamibi. INTERPRETATION: Resting Images: Resting images showed mild perfusion defect in the inferior wall. Post Lexiscan stress Images: Stress images showed mild perfusion defect in the inferior wall unchanged from resting images. There is no wall motion abnormality to suggest infarct. Gated SPECT/wall motion: Calculated ejection fraction is 64%. There are no regional wall motion abnormality seen. TID ratio is 1.16 CONCLUSION: 1. Nuclear stress test showed no conclusive evidence of reversible ischemia or infarct. 2. There is mild a perfusion defect in the inferior wall without associated abnormality. Perfusion defect is likely from diaphragmatic attenuation artifact. Continued Report - Page 2 of 2 Patient: RICKI BELL SusanRajani Phone#: : 1965 Age: 56 Gender: M Pt. Type: ER Account: [id number] Location: [facility] Ordering: TEENA ALMANZAR Exam Date: 09/13/2021/7:11 Family Phys: Charge Code: [id number] Physician: Wolfe Order #: [id number] DLP Dose#: 3. Calculated ejection fraction is 64% with normal wall motion. 4. TID ratio is normal Dictated by: MELISSA CARMONA MD on 09/13/2021 at 9:50 Approved by: MELISSA CARMONA MD on 09/13/2021 at 9:54 Dictated by: MELISSA CARMONA MD on 09/13/2021 at 10:17 Approved by: MELISSA CARMONA MD on 09/13/2021 at 10:17 Normal [facility] NM EXERCISE STRESS TEST (W/C ARDIAC STUDYon 09-13-2021 NM EXERCISE STRESS TEST (W/CARDIAC STUDY [place] [address] Patient: RICKIBELL Caldwell Phone#: : 1965 Age: 56 Gender: M Pt. Type: ER Account: [id number] Location: 010 Ordering: YASSER OMRAN Exam Date: 09/13/2021/7:11 Family Phys: Charge Code: [id number] Physician: Wolfe Order #: [id number] DLP Dose#: PROCEDURE: ELECTROCARDIOGRAM STRESS TEST HISTORY: Patient is a 54-year-old male with chest pain COMPARISON: None. INDICATIONS: Chest pain, HTN TECHNIQUE: Electrocardiogram stress test was performed using the protocol listed below. STRESS RESULTS: Protocol: Lexiscan Duration: 0.4mg over 10 seconds Resting Heart Rate: 116 bpm. Resting Blood Pressure: 172/99 mmHg Peak Heart Rate: 155 which is 95% of maximum predicted heart rate Blood pressure with Lexiscan With Lexiscan infusion blood pressure increased to180/93 Workload: 1.70 METs. Symptoms with stress: Patient not complain of any chest pain or any shortness of breath with stress. EKG Data EKG at Baseline: EKG at baseline showed sinus tachycardia at 170 BPM. There are no ST or T- wave abnormality seen. EKG with Stress: EKG with stress showed sinus tachycardia at 155 BPM. There is 1-1.[address] depression in leads II, III, AVF, V3 and V4. There is [address] depression in leads V5 and V6. CONCLUSION: 1. Patient not complain of any chest pain or significant dyspnea with stress test. 2. Patient had appropriate heart rate and blood pressure response to stress. 3. Stress EKG is positive for inducible ischemia Continued Report - Page 2 of 2 Patient: BELL ROBISON Phone#: : 1965 Age: 56 Gender: M Pt. Type: ER Account: [id number] Location: 010 Ordering: YASSER OMRAN Exam Date: 09/13/2021/7:11 Family Phys: Charge Code: 649856 Physician: Wolfe Order #: [id number] Dose#: [id number]. Nuclear images will be read and reported separately Dictated by: MELISSA CARMONA MD on 09/13/2021 at 9:38 Approved by: MELISSA CARMONA MD on 09/13/2021 at 9:43 Normal [facility] NT-proBNPon 09-13-2021 Natriuretic peptide B (Bld) [Mass/Vol] 66 pg/mL Normal 0 - 125 [facility] Comment on above: Performed By: #### 2 94142 #### [facility],[address] [place], [place] [id number] TROPONIN I, HIGH SENSITIVITY on 09-13-2021 HS TROPONIN 4.1 pg/mL Normal 0.0 - 76.2 [facility] Comment on above: Performed By: #### 2 70816 #### [facility],[address] [place] [address] HS TROPONIN 4.9 pg/mL Normal 0.0 - 76.2 [facility] Comment on above: Performed By: #### 2 06531 #### [facility],[address] [place], [place] [id number] HS TROPONIN 4.8 pg/mL Normal 0.0 - 76.2 [facility] Comment on above: Performed By: #### 2 85730 #### [facility],[address] [place], [place] [id number] URINALYSISon 09-13-2021 Amorphous NONE Normal [facility] Comment on above: Performed By: #### 2 93700 #### [facility],[address] [place], [place] [id number] Bacteria TRACE Normal [facility] Comment on above: Performed By: #### 2 50363 #### [facility],[address] [place], [place] [id number] Bilirubin Ql (U) Negative Normal NORMAL: NEGATIVE [facility] Comment on above: Performed By: #### 2 37962 #### [facility],[address] [place], [place] [id number] Casts NONE Normal [facility] Comment on above: Performed By: #### 2 14528 #### [facility],[address] [place], [place] [id number] Clarity (U) clear Normal NORMAL: CLEAR [facility] Comment on above: Performed By: #### 2 45946 #### [facility],[address] [place] [address] Color (U) yellow Normal NORMAL: YELLOW [facility] Comment on above: Performed By: #### 2 69611 #### [facility],[address] [place] [address] 07810 Crystals LM Nom (Urine sed) NONE Normal [facility] Comment on above: Performed By: #### 2 78563 #### [facility],[address] [place] [address] 58197 Epi Cells NONE Normal [facility] Comment on above: Performed By: #### 2 88162 #### [facility],[address] [place] [address]00 Glucose Ql (U) NORM Normal NORMAL: NORMAL [facility] Comment on above: Performed By: #### 2 20879 #### [facility],[address] [place] [address] 01469 Hemoglobin Ql (U) Negative Normal NORMAL: NEGATIVE [facility] Comment on above: Performed By: #### 2 87918 #### [facility],[address] [place] [address] 69057 Ketone Negative Normal NORMAL: NEGATIVE [facility] Comment on above: Performed By: #### 2 00016 #### [facility],[address] [place] [address]1537 Leukocytes 25 Abnormal NORMAL: NEGATIVE [facility] Comment on above: Performed By: #### 2 49292 #### [facility],[address] [place] [address] 98490 Mucous NONE Normal [facility] Comment on above: Performed By: #### 2 23158 #### [facility],[address] [place] [address] 88020 Nitrite Ql (U) Negative Normal NORMAL: NEGATIVE [facility] Comment on above: Performed By: #### 2 56330 #### [facility],[address] [place] [address] pH (U) 7 [pH] Normal NORMAL: 5.0-8.0 [facility] Comment on above: Performed By: #### 2 30001 #### [facility],[address] [place] [address] Protein Ql (U) 15 Abnormal NORMAL: NEGATIVE [facility] Comment on above: Performed By: #### 2 48895 #### [facility],[address] [place] [address] Rbc NONE Normal 0-3/hpf [facility] Comment on above: Performed By: #### 2 36005 #### [facility],[address] [place] [address] Sp [place] 1.010 Normal NORMAL: 1.010-1.030 [facility] Comment on above: Performed By: #### 2 97017 #### [facility],[address] [place] [address] Specimen Type UNSPECIFIED Normal [facility] Comment on above: Performed By: #### 2 52657 #### [facility],[address] [place] [address] Urinalysis dipstick W Reflex Microscopic panel (U) SEE BELOW Normal [facility] Comment on above: Result Comment: MICR OSCOPIC Performed By: #### 2 34968 #### [facility],[address] [place] [address] Urobilinog 1 Abnormal NORMAL: NORMAL [facility] Comment on above: Performed By: #### 2 86974 #### [facility],[address] [place] [address] Wbc 1-5 Normal 0-5/hpf [facility] Comment on above: Performed By: #### 2 33361 #### [facility],[address] [place] [address] Yeast NONE Normal [facility] Comment on above: Performed By: #### 2 70865 #### [facility],[address] [facility] [address] Auto Diffon 02-24-2017 Basophils Auto #/vol (Bld) 0.0 E3/mcL Normal 0.0-0.2 [facility] Comment on above: Order Comment: Order Added by Discern Expert. Performed By: #### 2 617347 ####MINDI GynXsqy2760 [place] [address] Basophils/100 WBC Auto (Bld) 0.4 % Normal 0.0-2.0 [facility] Comment on above: Order Comment: Order Added by Discern Expert. Performed By: #### 2 202266 ####MINDI NtiJnlg5743 [place] [address] Eos Absolute 0.3 E3/mcL Normal 0.0-0.7 [facility] Comment on above: Order Comment: Order Added by Discern Expert. Performed By: #### 2 622600 ####MINDI TekSpwf7312 [place] [address] Eosinophils/100 leukocytes 3.2 % Normal 0.0-11.0 [facility] Comment on above: Order Comment: Order Added by Discern Expert. Performed By: #### 2 338960 ####MINDI GijLswu2589 [place] [address] Lymphocytes 1.8 E3/mcL Normal 1.2-3.4 [facility] Comment on above: Order Comment: Order Added by Discern Expert. Performed By: #### 2 879469 ####MINDI GksJwnq4956 [place] [address] Lymphocytes/100 leukocytes 19.6 % Low 20.0-55.0 [facility] Comment on above: Order Comment: Order Added by Discern Expert. Performed By: #### 2 040762 ####MINDI AahNmas2623 [place] [address] Mcdonald Absolute 1.1 E3/mcL High 0.0-0.7 [facility] Comment on above: Order Comment: Order Added by Discern Expert. Performed By: #### 2 775814 ####MINDIYoav RodgersWnjEuvh8756 [place] [address] Monocytes/100 leukocytes 12.5 % High 0.0-10.0 [facility] Comment on above: Order Comment: Order Added by Discern Expert. Performed By: #### 2 790771 ####MINDI Rodgerso1025 [place] [address] Neutro Absolute 5.8 E3/mcL Normal 1.4-6.5 [facility] Comment on above: Order Comment: Order Added by Discern Expert. Performed By: #### 2 612689 ####MINDI Rodgerso[address] [place] [address] Neutro Auto 64.3 % Normal 37.0-75.0 [facility] Comment on above: Order Comment: Order Added by Discern Expert. Performed By: #### 2 208451 ####MINDI Rodgerso[address] [place] [address] BMPon 02-24-2017 BUN/Creatinine Ratio 15.0 ratio Normal 5.4-30.0 [facility] Comment on above: Performed By: #### 2 442599 ####MINDI Gavin[address] [place] [address] Creatinine 1.0 mg/dL Normal 0.6-1.3 [facility] Comment on above: Performed By: #### 2 865807 ####MINDI Gavin[address] [place] [address] Urea nitrogen 15 mg/dL Normal 7-18 [facility] Comment on above: Performed By: #### 2 260672 ####MINDI Gavin[address] [place] [address] Calcium 8.6 mg/dL Normal 8.4-10.2 [facility] Comment on above: Performed By: #### 2 495238 ####MINDI WilkersonVhrQsbr6296 [place] [address] Chloride 98 mmol/L Normal 98-107 [facility] Comment on above: Performed By: #### 2 025543 ####MINDI WilkersonGwoZiln6843 [place] [address] CO2 28.1 mmol/L Normal 24.0-30.0 [facility] Comment on above: Performed By: #### 2 690284 ####MINDI Gavin[address] [place] [address] Glucose mass conc 137 mg/dL High 70-99 [facility] Comment on above: Performed By: #### 2 615349 ####MINDI WilkersonJgiFwuz9378 [place] [address] Potassium molar conc 4.6 mmol/L Normal 3.5-5.1 [facility] Comment on above: Performed By: #### 2 997145 ####MINDI Gavin[address] [place] [address] Sodium 134 mmol/L Low 136-145 [facility] Comment on above: Performed By: #### 2 818714 ####MINDI Gavin[address] [place] [address] CBC w/ Auto Diffon 7 Erythrocyte distribution width Auto Ratio (RBC) 16.0 % High 11.5-14.5 [facility] Comment on above: Performed By: #### 2 888962 ####MINDI [address] [place] [address] Erythrocytes (RBC) 5.09 E6/mcL Normal 3.90-6.10 [facility] Comment on above: Performed By: #### 2 006295 ####MINDI [address] [place] [address] Hematocrit (HCT) 43.5 % Normal 42.0-52.0 [facility] Comment on above: Performed By: #### 2 971632 ####MINDI [address] [place] [address] Hemoglobin mass conc (Bld) 14.4 g/dL Normal 13.5-18.0 [facility] Comment on above: Performed By: #### 2 599875 ####MINDI [address] [place] [address] MCH 28.2 pg Normal 27.0-31.0 [facility] Comment on above: Performed By: #### 2 476105 ####MINDI [address] [place] [address] MCHC mass conc (RBC) 33.1 g/dL Normal 33.0-37.0 [facility] Comment on above: Performed By: #### 2 209922 ####MINDI WilkersonEdfYdky9580 [place] [address] MCV 85.4 fL Normal 78.0-100.0 [facility] Comment on above: Performed By: #### 2 054136 ####MINDI WilkersonVrhApcw1382 [place] [address] Platelet mean volume (PMV) 9.6 fL Normal 7.4-11.0 [facility] Comment on above: Performed By: #### 2 095330 ####MINDI WilkersonScjNiul5996 [place] [address] Platelets 225 E3/mcL Normal 130-400 [facility] Comment on above: Performed By: #### 2 203445 ####MINDI Rodgerso[address] [place] [address] WBC (Leukocytes) 9.1 E3/mcL Normal 3.6-11.0 [facility] Comment on above: Performed By: #### 2 040292 ####MINDI WilkersonVibNkns1803 [place] [address] CTA Cheston 02-24-2017 CTA Chest Exam Date/Time:02/24/2017 19:23 ESTReason for Exam:Pulmonary Emboli (PE)ReportEXAM: CTA ChestCLINICAL STATEMENT: Pulmonary embolism. Shortness of breath.COMPARISON: None.TECHNIQUE: CT angiography of the pulmonary arteries following theadministration of 90 mL of Omnipaque 350 was used for the examinationintravenous contrast. Coronal and sagittal MIP (maximum intensity projection)images were performed.Dose reduction techniques were achieved by using automated exposure controland/or adjustment of mA and/or kV according to patient size and/or use ofiterative reconstruction technique.FINDINGS: Evaluation of the thoracic inlet is unremarkable.The heart and great vessels enhance normally. No pericardial effusion. There ismoderate atheromatous calcification in the coronary arteries. The centralairways are normal in caliber and configuration.The lungs appear to be free of focal consolidation, pleural effusion, orpneumothorax. The osseous structures are intact without acute abnormality.No suspicious parenchymal mass lesion or nodule identified to localizemetastatic disease or suspicious pulmonary nodule.The timing bolus appears to be adequate for evaluating the pulmonary arteries.There is no suspicious pulmonary artery filling defects to localize acutepulmonary embolic disease. There is no evidence of thoracic aortic aneurysm.Partially visualized solid and hollow viscera in the upper abdomen demonstrateno additional acute or diagnostic abnormality.The osseous structures demonstrate no acute abnormality to include fracture andtraumatic malalignment.IMPRESSION: 1. There is no convincing CTPA evidence of acute pulmonary embolic disease orthoracic aortic aneurysm. There is no evidence of CHF or bronchopneumonia.Exam Date/Time:02/24/2017 19:23 ESTReportThere is mild stigmata of COPD. No evidence of CHF or bronchopneumonia. FINAL REPORT Dictated: 02/24/2017 9:54 pm Reji Hay MD SSigned (Electronic Signature): 02/24/2017 9:54 pmSigned by: Reji Hay MD Technologist: LELA Normal [facility] D-Dimeron 02-24-2017 D-Dimer 0.30 mg/L FEU Normal <=0.50 [facility] Comment on above: Result Comment: Norm al D Dimer level indicates no Deep Vein Thrombosis (DVT) or Pulmonary Embolism (PE).Elevated D Dimer level indicates additional studies and clinical assessments are indicated to conclude diagnosis of Deep Vein Thromobsis (DVT) or Pulmonary Embolism (PE). Performed By: #### 2 679811 ####[facility] Vfvnwcajbe0254 [place] [address] Magnesiumon 02-24-2017 Magnesium 2.1 mg/dL Normal 1.7-2.8 [facility] Comment on above: Performed By: #### 2 827121 ####MINDI QgvBtfh4114 [place] [address] PTon 02-24-2017 INR Coag RelTime (PPP) 1.3 {INR} High 1.0-1.2 [facility] Comment on above: Result Comment: INR Recommended Therapeuptic Ranges: Prophylaxis/treatment of DVT and PE?2.0-3.0 Prevention of systemic embolism?.2.0-3.0 Mechanical prosthetic values?2.5-3.5 CRITICAL VALUES?.>4.0 Performed By: #### 2 678153 ####[facility] [address] [place] [address] Prothrombin time (PT) Coag time (PPP) 15.2 second(s) High 11.6-14.6 [facility] Comment on above: Performed By: #### 2 758938 ####[facility] [address] [place] [address] PTTon 02-24-2017 aPTT 32.7 second(s) Normal 23.2-36.4 [facility] Comment on above: Performed By: #### 2 410057 ####[facility] [address] [place] [address] PTT Control Ratioon 02-25-20 17 PTT Ratio 1.1 ratio Normal 0.8-1.2 [facility] Comment on above: Order Comment: Order added by Discern Expert. Performed By: #### 8 [id number] ####[facility] [address] [place] [address] Troponin-Ion 02-24-2017 Troponin I.cardiac mass conc ng/mL Normal .00-.03 [facility] Comment on above: Performed By: #### 2 923540 ####MINDI BvmJbry[address] [place] [address] Troponin I.cardiac mass conc ng/mL Normal .00-.03 [facility] Comment on above: Performed By: #### 2 319709 ####MINDI GdvSsep2770 [place] [address] XR Chest 1 View [place] INR Coag RelTime (Bld) Exam Date/Time:02/24/2017 18:14 ESTReason for Exam:Chest painReportPORTABLE CHEST:REASON FOR STUDY: Chest pain.COMPARISON: None.REPORT: The lungs are clear and well aerated. Trachea, mediastinum and heartsize are unremarkable. No effusion or nodule or pneumothorax is noted.Diaphragm and bony elements are intact.IMPRESSION:Nonacu te portable chest. FINAL REPORT Dictated: 02/24/2017 6:47 pm Hema Bartholomew DOSigned (Electronic Signature): 02/24/2017 6:47 pmSigned by: Hema Bartholomew DO Technologist: [place] [facility] eGFRon 02-24-2017 eGFR (non-black) mL/min/{1.73_m2} [facility] Comment on above: Order Comment: Order added by Discern Expert. Performed By: #### 1 [id number] ####MINDI VnqWefq9425 [place] [address] Vital Signs Date Time Vital Sign Value Performing Clinician Facility 07-18-2024 21:19-0400 Body temperature 98 [degF] No Primary Care Physician [facility] 07-18-2024 21:19-0400 Diastolic blood pressure 86 mm[Hg] No Primary Care Physician [facility] 07-18-2024 21:19-0400 Heart rate 110 /min No Primary Care Physician [facility] 07-18-2024 21:19-0400 Respiratory rate 25 /min No Primary Care Physician [facility] 07-18-2024 21:19-0400 SaO2% (BldA) [Mass fraction] 93 % No Primary Care Physician [facility] 07-18-2024 21:19-0400 Systolic blood pressure 153 mm[Hg] No Primary Care Physician [facility] 07-18-2024 18:08-0400 Body height 175.26 cm No Primary Care Physician [facility] 07-18-2024 18:08-0400 Body mass index (BMI) [Ratio] 28.3 kg/m2 No Primary Care Physician [facility] 07-18-2024 18:08-0400 Body weight 87.08 kg No Primary Care Physician [facility] 05-30-2024 16:45-0400 Diastolic Blood Pressure Non-Invasive 85 mm[Hg] DR KIT MARTINEZ MD [facility] 05-30-2024 16:45-0400 Heart rate 99 /min DR KIT MARTINEZ MD [facility] 05-30-2024 16:45-0400 Respiratory rate 20 /min DR KIT MARTINEZ MD [facility] 05-30-2024 16:45-0400 Systolic Blood Pressure Non-Invasive 173 mm[Hg] DR KIT MARTINEZ MD [facility] 05-30-2024 15:23-0400 Heart rate 94 /min DR KIT MARTINEZ MD [address] [place] [address] 05-30-2024 15:23-0400 Respiratory rate 18 /min DR KIT MARTINEZ MD [address] [place] [address] 05-30-2024 14:20-0400 Heart rate 99 /min DR KIT MARTINEZ MD [address] [place] [address] 05-30-2024 14:20-0400 Reason For Taking VItal Signs DR KIT MARTINEZ MD [address] [place] [address] 05-30-2024 14:20-0400 Respiratory rate 20 /min DR KIT MARTINEZ MD [address] [place] [address] 05-30-2024 12:49-04[address] Pressure Cuff Size DR KIT MARTINEZ MD [facility] 05-30-2024 12:49-[address] KIT MARTINEZ MD [facility] 05-30-2024 12:49-[address] KIT MARTINEZ MD [address] [place] [address] 05-30-2024 12:49-0400 Body temperature 98.42 [degF] DR KIT MARTINEZ MD [facility] 05-30-2024 12:49-0400 Body weight [address] KIT MARTINEZ MD [address] [place] [address] 05-30-2024 12:49-0400 Diastolic Blood Pressure Non-Invasive 90 mm[Hg] DR KIT MARTINEZ MD [address] [place] [address] 05-30-2024 12:49-0400 Heart rate 96 /min DR KIT MARTINEZ MD [facility] 05-30-2024 12:49-0400 Systolic Blood Pressure Non-Invasive 155 mm[Hg] DR KIT MARTINEZ MD [facility] 09-13-2021 00:20-0400 SaO2% (BldA) [Mass fraction] 96 % TEENA [facility] Comment on above: Performed By: #### [id number] #### [facility],[address] [place] [address] Encounters Encounter Date Encounter Type Care Provider Facility Start: 07-18-2024 End: 07-18-2024 Emergency department patient visit No Primary Care Physician -Emergency Department Work Phone: Start: 05-30-2024 End: 05-30-2024 Emergency department patient visit DR KIT MARTINEZ MD [facility] Start: 05-30-2024 End: 05-30-2024 ambulatory DIONNE THAYER PA-C Facility:A Start: 03-08-2022 End: 03-08-2022 ambulatory KENYETTA MCGILL [facility] Start: 09-12-2021 End: 09-13-2021 ambulatory TEENA PEERZ [facility] Start: 02-24-2017 End: 02-25-2017 Emergency department patient visit Mikala Cole Facility:[facility] Procedures Date Procedure Procedure Detail Performing Clinician Start: 07-18-2024 X-ray of chest, PA a nd lateral views No Primary Care Physician Start: 07-18-2024 Estimated creatinine clearance No Primary Care Physician Start: 09-13-2021 Urinalysis TEENA ALMONTE Comment on above: Result Comment: URIN ALYSIS Performed By: #### 2 63427 #### [facility],[address] [place] [address] Open reduction of fracture with internal fixation DR KIT MARTINEZ MD Plan of Treatment Date Care Activity Detail Author Start: 07-18-2024 End: 07-18-2024 [facility] Start: 07-18-2024 [facility] Patient Education ED Arthralgia ED Dyspnea [facility] Work Phone: Patient referral [facility] Work Phone: Troponin T.cardiac [Mass/volume] in Serum or Plasma by High sensitivity method [facility] Payers Date Payer Category Payer Self-pay [id number] 2024 Unknown [id number] 2017 Unknown 1965 Unknown [id number] [id number] 1965 Unknown [id number] [id number] Unknown [employer] [id number] [facility] [id number] Unknown [id number] 2.16.8 [id number] Social History Date Type Detail Facility Start: 05-30-2024 Tobacco smoking status Light t obacco smoker (finding) [facility] Sexual Orientation [facility] Start: 04-19-2005 Sex Male (finding) [facility] Start: 07-18-2024 [facility] Start: 1965 Sex Assigned At Male [facility] Functional Status Date Assessment Result Facility 05-30-2024 Functional Status Independent [facility] 05-30-[facility]24 Functional Status Standard Safety Safety level maintained [facility] 05-30-2024 Functional Status Repositions self [facility] Mental Status Date Assessment Result Facility 07-18-2024 Cognitive function Level Of Cons ciousness Awake;Alert;Appropriate;Follow s Commands [facility] Work Phone: 05-30-2024 Mental Status Orientation Oriented x 4 [facility] 05-30-2024 Mental Status [facility] Radiology Diagnostic study note 07-18-2024 Note Date & Type Note Facility 07-18-2024 Radiology Diagnostic study note [facility] Services [address] [place] [address] Chest PA and Lateral MR#: [id number] Acct: [id number] Name: BELL ROBISON Rep #: [id number] : 1965 M 59 From: Anita Hernandez MD PCP: Care Physician,No Primary Status: REG ER Study:Chest PA and Lateral Date of Exam: 07/18/24 Exam# [id number] Ordering Dr: Edna Schmidt PROCEDURE: CHEST PA AND LATERAL 07/18/2024 REASON FOR EXAM: SOB TECHNIQUE: Frontal and lateral views of the chest. COMPARISON: None FINDINGS: Hardware: None Heart: The heart size is normal. Mediastinum: The mediastinal contour is unremarkable. Lungs: No focal consolidation. No pneumothorax. No pleural effusion. Bones: The bones are unremarkable. RAD/Chest PA and Lateral IMPRESSION: NO ACUTE FINDINGS. Reading Location: [place] CC: JASON Magdaleno; No Primary Care Physician ~ Lens Coating Technician: Signed [facility] Hospital Discharge instructions 07-18-2024 Note Date & Type Note Facility 07-18-2024 Hospital Discharg e instructions Additional Instructions Please follow-up with pain management. Can also follow-up at the [facility] clinic if you need a PCP at [phone]. Take Tylenol and ibuprofen for your pain as needed. [facility] Work Phone: Hospital Discharge instructions 05-30-2024 Note Date & Type Note Facility 05-30-2024 Hospital Discharg e instructions Patient Education 05/30/2024 14:49:59 Near Syncope, Unknown Near-Fainting with Uncertain Cause Fainting (syncope) is a temporary loss of consciousness (passing out). This happens when blood flow to the brain is reduced. Near-fainting (near-syncope) is like fainting, but you do not fully pass out. Instead, you feel like you are going to pass out, but do not actually lose consciousness. Signs and symptoms The following are symptoms of near-fainting: Feeling lightheaded or like you are going to faint Weak pulse Nausea Sweating Blurred vision or feeling like your vision is fading Palpitations Chest pain Hard time breathing Feeling cool and clammy Causes This happens when your blood pressure suddenly drops, and not enough blood flows to your brain. Common minor causes include: Sudden emotional stress such as fear, pain, panic, or the sight of blood Straining or overexertion, such as straining while using the toilet, coughing, or sneezing Standing up too quickly, or standing up for too long a time More serious causes include: Very slow, fast, or irregular heart rate (arrhythmia) Dehydration Significant blood loss Medicines, or a recent change in medicines. Medicines that can cause fainting include blood pressure or heart medicines. Heart attack Heart valve problems Remember, even minor causes can become serious if you fall and injure yourself, or are driving. You may need more tests. It is very important that you follow up with your doctor as advised. Home care The following guidelines will help you care for yourself at home: Rest today. Resume your normal activities as soon as you are feeling back to normal. If you become lightheaded or dizzy, lie down right away or sit with your head between your knees. Drink plenty of fluids and don't skip meals. Because the exact cause of your near fainting spell is not known, another spell could occur without warning. To stay safe, do not drive a car or use dangerous equipment. Do not take a bath alone. Use a shower instead. Do not swim alone. You can resume these activities when your healthcare provider says that you are no longer in danger of having a near-fainting spell. Follow-up care Follow up with your healthcare provider, or as advised. Call 911 Call 911 if any of the following occur: Another near-fainting or full fainting spell occurs, and it is not explained by the common causes listed above Chest, arm, neck, jaw, back or abdominal pain Shortness of breath Weakness, tingling, or numbness in one side of the face, or in one arm or leg Slurred speech, confusion, trouble walking or seeing Seizure When to seek medical advice Call your healthcare provider right away if any of these occur: Changes in your medicines Occasional mild lightheadedness, especially when standing up too quickly or straining [id number] [employer]. [address] [place] [address], [place] [address]. All rights reserved. This information is not intended as a substitute for professional medical care. Always follow your healthcare professional's instructions. Follow Up Care 05/30/2024 12:48:14 With:FANG VELARDE MD Address: [address] [place] [phone] When:2-4 days Comments:[facility] clinic contact information [facility] Emergency department Discharge summary 05-30-2024 Note Date & Type Note Facility 05-30-2024 Emergency departm ent Discharge summary Discharge Instructions Thank you for allowing [facility] to assist you with your healthcare needs. The following is important discharge information regarding your hospital visit. What to Do Next Instructions from Your Care Team Discharge Event Monitor Instructions - Ordered -- 05/30/24 15:57:00 EDT, You have been ordered mobile outpatient telemetry. If not given a device in the ED, expect to receive one in the mail. If you have not received a device within 14 days after discharge, please call [facility] at [phone]. Post Acute Orders No qualifying data available. You Need to Schedule the Following Appointments Follow Up with FANG VELARDE MD When:Within 2-4 days Where:[address] [place] [phone] Additional Information: [facility] clinic contact information Allergies penicillin Medications Please ask your primary doctor or pharmacist before taking any other medication not listed, including over the counter drugs, herbal medications, vitamins and or supplements as they may interact with your home medications. What How Much When Instructions Last Dose Unchanged traMADol (traMADol 50 mg oral tablet) 1 tab(s) by mouth Every 6 hours Please take this list to your next doctor s visit. Bring all medications you take, including over the counter medications, herbals and other supplements with you to your doctor s visit. Patients and families are reminded to discard old lists and to update any records with all medication providers or retail pharmacies. Education Materials Near-Fainting with Uncertain Cause Fainting (syncope) is a temporary loss of consciousness (passing out). This happens when blood flow to the brain is reduced. Near-fainting (near-syncope) is like fainting, but you do not fully pass out. Instead, you feel like you are going to pass out, but do not actually lose consciousness. Signs and symptoms The following are symptoms of near-fainting: Feeling lightheaded or like you are going to faint Weak pulse Nausea Sweating Blurred vision or feeling like your vision is fading Palpitations Chest pain Hard time breathing Feeling cool and clammy Causes This happens when your blood pressure suddenly drops, and not enough blood flows to your brain. Common minor causes include: Sudden emotional stress such as fear, pain, panic, or the sight of blood Straining or overexertion, such as straining while using the toilet, coughing, or sneezing Standing up too quickly, or standing up for too long a time More serious causes include: Very slow, fast, or irregular heart rate (arrhythmia) Dehydration Significant blood loss Medicines, or a recent change in medicines. Medicines that can cause fainting include blood pressure or heart medicines. Heart attack Heart valve problems Remember, even minor causes can become serious if you fall and injure yourself, or are driving. You may need more tests. It is very important that you follow up with your doctor as advised. Home care The following guidelines will help you care for yourself at home: Rest today. Resume your normal activities as soon as you are feeling back to normal. If you become lightheaded or dizzy, lie down right away or sit with your head between your knees. Drink plenty of fluids and don't skip meals. Because the exact cause of your near fainting spell is not known, another spell could occur without warning. To stay safe, do not drive a car or use dangerous equipment. Do not take a bath alone. Use a shower instead. Do not swim alone. You can resume these activities when your healthcare provider says that you are no longer in danger of having a near-fainting spell. Follow-up care Follow up with your healthcare provider, or as advised. Call 911 Call 911 if any of the following occur: Another near-fainting or full fainting spell occurs, and it is not explained by the common causes listed above Chest, arm, neck, jaw, back or abdominal pain Shortness of breath Weakness, tingling, or numbness in one side of the face, or in one arm or leg Slurred speech, confusion, trouble walking or seeing Seizure When to seek medical advice Call your healthcare provider right away if any of these occur: Changes in your medicines Occasional mild lightheadedness, especially when standing up too quickly or straining [id number] [employer]. [address] [place] [address]. All rights reserved. This information is not intended as a substitute for professional medical care. Always follow your healthcare professional's instructions. Additional Information VACCINATE! IT SAVES LIVES! Members of the community who have not yet received the COVID-19 vaccine and would like to receive it can visit one of [facility] vaccine clinics. There are many vaccine clinic locations within the [facility]. For locations and available times, please visit www.[email or web address].[place].gov/. It is important to note that some COVID mobile vaccine clinics are held outdoors and may be canceled in rainy or stormy conditions. To learn more about pediatric vaccinations (ages 5-11), we invite you to visit the [facility] webpage. [email or web address].[email or web address].org/pages/ 0868-Vdpdz-Tdunszlqdmc-Frequently-Ask ed-Questions.html To learn more about the COVID-19 vaccine, we invite you to visit the CDC website for a list of frequently asked questions. https://www.cdc.gov/coronavirus/2019- ncov/vaccines/faq.html [employer] Patient Portal Access Instructions: Stay connected with your healthcare team and access your personal medical information anytime with the [employer] Patient Portal. If you would like a full copy of your medical records please contact the [facility] Medical Records Department Sunday through Sunday between 8a.m. and 4:30p.m. Please follow the directions below to access the portal: 1.Access the email account you provided upon registration to the hospital.2.Look for an invitation email from [facility].3.Open the email and access the invitation link: Accept Invitation to [employer]4.Fill in the required newberry to create your account. Sign into www.[employer] with your username and password that you created in the above steps to stay up to date. You can then view a summary of results, a summary of your visits, and the ability to download your summaries to your computer or send the information securely to a physician. Remember that your healthcare information is confidential, so carefully consider who you will allow to register on the [facility] Patient Portal for access to your information. You can also access the [facility] Patient Portal on the [employer] reena. Simply click on "Health Records" under "Health Data" and then click on the [employer] logo. HOW TO SAFELY DISPOSE OF PRESCRIPTION MEDICATIONS Please use one of the following methods to safely dispose of your unused medications. 1.Use a drug disposal kit: the drug disposal pouch allows you to safely discard your old and unused drugs. Ask your nurse to give you one when you are discharged.2.Visit a local take-back location: Many local pharmacies and police departments have programs that collect old and unwanted prescription drugs. Call your local pharmacy or go to http://[place].[employer]/3R1Qz1w to find one close to you.3.Make use of household items: Use cat litter or old coffee grounds to dispose medications if other options are not available. Mix your drugs with these household products, seal them in an airtight container and throw it into the garbage. Call [facility]: [phone] to be sure your drugs can be disposed of in this way. Some medicines may require a different approach.4.Never flush your medications down the toilet. IF YOU HAVE BEEN PRESCRIBED AN OPIOIDS FOR PAIN If you have been prescribed an opioid (such as hydrocodone, oxycodone or morphine), it is critical to understand the possible side effects and risks of opioid pain medications. Even when taken as directed, opioids can have several side effects including: Tolerance, meaning you might need to take more of a medication for the same pain relief. Nausea, vomiting and/or constipation. Sleepiness, dizziness, dry mouth, confusion, depression or itching. Physical dependence, meaning you have withdrawal symptoms when a medication is stopped ? this can develop within a few days. KNOW YOUR RESPONSIBILITIES It is important to know exactly how much and how often to take the opioid pain medications you are prescribed. Never take opioids in higher amounts or more often than prescribed. Do not combine opioids with alcohol or other drugs that cause drowsiness, such as benzodiazepines, also known as benzos, including diazepam and alprazolam, muscle relaxants or sleep aids. Never sell or share prescription opioids. This is illegal. Store opioids in a secure place and out of reach of others (including children, family, friends and visitors). The last page(s) of this document has been signed and retained as a CHART COPY Signatures Patient Education Materials Near Syncope, Unknown Medication Leaflets My discharge plan and instructions have been reviewed and explained to me and I,BELL ROBISON understand my current condition and have read and understand these discharge instructions. I have received a written copy of the plan/instructions. If I have questions, I am aware that I should contact my doctor. 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 Signature: __ Date/Time: Relationship to Patient: Witness Name/Signature: Date/Time: [facility] Clinical Note 05-30-2024 Note Date & Type Note Facility 05-30-2024 Note Exam Date Time Procedure Performing Provider Status 05/30/24 2:32 PM EKG (ED) - CV KIT MARTINEZ MD; Auth (Verified) ECG Final Report SINUS RHYTHM PROBABLE LEFT ATRIAL ENLARGEMENT Electronic Signature: KIT MARTINEZ MD 05/30/2024 15:56:38 [facility] Clinical Note 05-30-2024 Note Date & Type Note Facility 05-30-2024 Note Exam Date Time Procedure Performing Provider Status 05/30/24 1:42 PM XR Chest 1 View KIRTI MYERS MD; Auth (Verified) [id number] ORIGINAL EXAMINATION: ONE XRAY VIEW OF THE CHEST05/30/2024 1:42 pm XR Chest portable upright COMPARISON: None HISTORY: ORDERING SYSTEM PROVIDED HISTORY: Reason for Exam: chest pain, FINDINGS: No suspicious nodule, acute infiltrate, consolidation,mass, pneumothorax, pleural fluid, or vascular congestion is seen. Heart size and mediastinal contours are within normal limits for age and projection. No acute skeletal abnormality. IMPRESSION: No acute cardiopulmonary process. Interpreted by: Kirti Myers MD Preliminary Report By: Kirti Myers MD Electronically signed By Kirti Myers MD Dictated Date: 05/30/2024 1:49:50 PM Prelim Date: 05/30/2024 1:50:03 PM Sign Date: 05/30/2024 1:50:03 PM Ordering Provider: [facility] History and physical note 09-16-2021 Note Date & Type Note Facility 09-16-2021 [facility] HISTORY & PHYSICAL/DISCHARGE SUMMARY NAME ACCOUNT SEX AGE ADMIT DISCHARGE PT MED. RECORD# NUMBER DATE DATE TYPE RICKI, [id number] M 56 09/12/21 2 BELL Zeng [id number] ROOM: 304MO DATE OF : 61 DICTATING PHYSICIAN: Teena Almanzar ADMITTING DIAGNOSES: 1. Chest pain. 2. Elevated blood pressure. CHIEF COMPLAINT: Chest pain. HISTORY OF PRESENT ILLNESS: This is a 56-year-old healthy gentleman with no active health problems. The patient was in his usual state of health. Yesterday, the pain was in senior living. He was noted to have elevated blood pressure at the time. He did report some chest pain. The chest pain was described to the right of the lower part of the sternum, which was intermittent. It came back and left a few times. He was somewhat nervous and shaky at the time, and eventually due to the recurrent symptoms and the elevated blood pressure he was brought to the emergency room. In the emergency room, his blood pressure was somewhat elevated. EKG revealed no acute changes. The patient then was admitted to rule out VT. Troponins were negative. EKG revealed no acute changes. Since admission, the patient had an echocardiogram which revealed no evidence of ischemia by regional wall motion, and he had preserved ejection fraction. The patient did undergo stress testing, which revealed no evidence of reversible ischemia. The patient did not have any further symptoms. I did discuss with the patient his elevated blood pressure. The patient is not watching his salt intake, but all this year he has never had issues with high blood pressure. There is no reported family history of hypertension. PAST MEDICAL HISTORY: None. MEDICATIONS: None. ALLERGIES: No known allergies. FAMILY HISTORY: Both parents are . Mother in her late 70s and father in his early 70s. He is not sure what they from. He thinks his mom had some heart trouble, but he is not sure of the details. SOCIAL HISTORY: The patient smokes 1 pack of cigarettes a day. He does not drink Page 1 of 4 BELL ROBISON History Physical/Discharge Summary BELL ROBISON :1965 alcohol. 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 He has not been working recently REVIEW OF SYSTEMS: The patient denied fever or chills, night sweats. No headache, blurry vision, earache, or sore throat. No neck pain, chest pain as described above intermittent and lasting for a few seconds and then resolves spontaneously in association with elevated blood pressure. The patient denied any nausea or diaphoresis. No abdominal pain, diarrhea, constipation, difficulty with urination, increased frequency or burning, and no skin rashes. PHYSICAL EXAMINATION GENERAL APPEARANCE: This is a 56-year-old gentleman sitting in the chair comfortable at the time of assessment. VITAL SIGNS: Vital signs are revealing a fluctuating blood pressure. HEENT: Normocephalic and atraumatic. Pupils are round, equal, and reactive. Tongue to midline. NECK: Neck is supple. LUNGS: Lungs are clear. HEART: Regular. No gallop or murmurs. ABDOMEN: Soft. No tenderness. EXTREMITIES: Revealed no edema. DIAGNOSTIC DATA: Laboratory data has revealed his white count of 7.6, hemoglobin 14.6, and glucose 111. BUN is 18, creatinine 1.16. IMPRESSION: 1. Chest pain atypical in a patient with moderate risk profile of coronary artery disease. 2. Elevated blood pressure with no history of hypertension. PLAN: 1. The patient was admitted to the hospital. 2. He received aspirin, beta richard, and statin. 3. He did have deep venous thrombosis prophylaxis, as well as beta blockers. The deep venous thrombosis prophylaxis was done with sequential compression devices. 4. The patient had no further pain. He did receive albuterol treatment, which helped some with the dyspnea, but no other help. I doubt he will need that treatment. Page 2 of 4 BELL ROBISON History Physical/Discharge Summary BELL ROBISON :1965 On discharge, I discussed with the patient the need for a low salt diet, and to monitor his blood pressure and keep a record to decide when to institute treatment for his hypertension if he does have that diagnosis. He should be on aspirin daily, and at this point he does not need the treatment for hypertension yet except for diet and exercise. This was explained to the patient, and he understood those facts. DIAGNOSTIC DATA: Diagnostic procedures during the hospital stay: (1) Echocardiogram. (2) Stress testing. DISPOSITION: Discharge destination: The patient will return back to his existing prehospital setting. The patient recently was in senior living when he was brought in here for his chest pain. I did explain at length with the patient the importance when he gets discharge to have a primary care physician and to record his blood pressure for t (more content not included)... [facility] Evaluation + Plan note Note Date & Type Note Facility Evaluation + Plan note No data available for this section [facility] Evaluation note Note Date & Type Note Facility Evaluation note No assessment information availa ble [facility] Work Phone: Reason for referral (narrative) Note Date & Type Note Facility Reason for referral (narrative) No reason for referral information available [facility] Work Phone: Summary Purpose Family History No Family History Records FoundNo Family History Records Found No data available for this section No Family History Records FoundNo Family History Records Found Advance Directives No Advanced Directives Records Found Advance Directive Response Recorded Date/ Time Do you have a Healthcare Power of Safety Deposit Supervisor? No July 18, 2024 6:29pm Chief Complaint and Reason for Visit Chief Complaint Admit Date other pain July 18, 2024 6:08pm Additional Source Comments (unrecognized sect ion and content) No Status Records FoundNo Status Records FoundNo Status Records FoundNo Status Records Found INFORMATION SOURCE (unrecogn ized section and content) DATE CREATED AUTHOR 09/04/2017 [facility] DATE CREATED AUTHOR AUTHOR'S ORGANIZ ATION 04/05/2022 [facility] DATE CREATED AUTHOR AUTHOR'S ORGANIZ ATION 06/16/2024 [facility] DATE CREATED AUTHOR AUTHOR'S ORGANIZ ATION 07/24/2024 [facility] Patient Care team informatio n (unrecognized section and content) Team Status: Active Member Role Status Dates No Primary Care Physician Primary Care Provider Active Team Status: Inactive Member Role Status Dates No Primary Care Physician Primary Care Provider Active Start: July 18, 2024 End: July 18, 2024 Dr. Manjeet Lujan , DO Emergency Provider Active Start: July 18, 2024 End: July 18, 2024 Goals (unrecognized section and content) Goals may be documented in a n alternate section FOR RECORDS PERTAINING TO PATIENTS WHO ARE OR HAVE BEEN ENROLLED IN A CHEMICAL DEPENDENCY/SUBSTANCEABUSE PROGRAM, SOME INFORMATION MAY BE OMITTED. This clinical summary was aggregated from multiple sources. Caution should be exercised in using it in the provision of clinical care. This summary normalizes information from multiple sources, and as a consequence, information in this document may materially change the coding, format and clinical context of patient data. In addition, data may be omitted in some cases. CLINICAL DECISIONS SHOULD BE BASED ON THE PRIMARY CLINICAL RECORDS. [facility] [employer] [facility]. provides no warranty or guarantee of the accuracy or completeness of information in this document.
[2025-02-17 10:52] LABS: Hematocrit 34.9 % (40-54); Hemoglobin 11.0 g/dL (13.0-16.5); Immature Granulocytes Count 0.100 X10^3/uL (0.0-0.0); Mean Corp Hgb Conc 31.5 g/dL (32-36); Mean Corpuscular Volume 84.7 fL (80-94); Mean Platelet Vol. 10.6 fl (6.2-12.0); NRBC Flagged by Analyzer 0 % (0-5); Platelet Count 383 K/mm3 (150-450); RBC Distribution Width CV 13.8 % (11.6-14.6); RBC Distribution Width SD 42.9 fl (35.1-43.9); Red Blood Count 4.12 M/mm3 (4.6-6.2); White Blood Count 9.4 K/mm3 (4.4-11.0)
[2025-02-17 11:05] LABS: Anion Gap 11 (5-15); BUN 19 mg/dL (4-19); BUN/Creat Ratio 24.1 RATIO (10-20); Calcium,Total 8.6 mg/dL (7.6-11.0); Carbon Dioxide 25.8 mmol/L (21.0-32.0); Chloride 101 mmol/L (98-108); Glucose 94 mg/dL (70-99); Magnesium 2.0 mg/dL (1.5-2.2); Potassium 4.8 mmol/L (3.3-5.1); Vitamin B12 305 pg/mL (180-914); Vitamin D,25 Hydroxy 21.4 ng/mL (30-100)
== END | disposition home or self-care (01) ==
LOC: OLS.SW 05:00
PROVIDERS: Visit Provider Internal Medicine
DX: I10 Essential (primary) hypertension (principal); C61 Malignant neoplasm of prostate; C79.51 Secondary malignant neoplasm of bone; D64.9 Anemia, unspecified
CPT/HCPCS: 36415; 80048; 82306; 82607; 83735; 85025

== ENCOUNTER → 2025-03-11 05:00 | Outpatient (REF) | payer MEDICAID, SELFPAY ==
--- OUTSIDE RECORDS SUMMARY | 2025-03-11 04:08 | XMS RPT_ITS | CCD ---
Author Organization [facility] Care Team Providers Care Aoc Operations Intelligence Chief Name Role Phone Ivanauskas, Saulius Unavailable Unavailable Ivanauskas, Saulius Unavailable Unavailable No Doctor Assigned, Nodr Unavailable Unavail able TEENA ALMANZAR MD Admitting Unavailable TEENA ALMANZAR MD Attending Unavailable TEENA ALMANZAR MD Primary Care Unavailable AMICONEKENYETTATESTBOARD OPERATOR Attending Unavailab le AMICONE, KENYTETA [facility]INIC MGR-TESTBOARD OPERATOR Primary Care Unavailab le AMICONE, KENYETTA CLINIC MGR-TESTBOARD OPERATOR Admitting Unavailab le PHYSICIAN, NONE Primary [...] (1 source) Penicillin; Translations: [penicillins] Drug Allergy [facility] (1 source) Penicillins Propensity to adverse reactions 5 Upset Stomach [facility] (1 source) Penicillins Drug allergy (disorder) 5 [facility] Repository Medications Current Medications Medication Drug Class(es) Dates Sig (Normalized) Sig (Original) [id number] 200 actuat albuterol 0.09 mg/actuat metered dose [...] Auto (Unsp spec) [#/Vol] 1.44 10*3/uL 0.83-4.51 [facility] Absolute neutrophil countOrd ered By: Edna Nichols on 07-18-2024 Neutrophils (Bld) [#/Vol] 9.1 10*3/uL High 2.0-7.7 [facility] Anion gap in Serum or Plasma Ordered By: Edna Nichols on 07-18-2024 Anion gap [Moles/Vol] 11 mmol/L 5-15 [facility] Automated lymphocyte count a s percentage of total leukocytesOrdered By: Edna Nichols on 07-18-2024 Lymphocytes/100 WBC Auto (Unsp spec) 12.0 % Low 19-41 [facility] BUN/creatinine ratioOrdered By: Edna Nichols on 07-18-2024 Urea nitrogen/Creatinine [Mass ratio] 18.7 mg/mg - [facility] Basic Metabolic Profile (BMP )on 07-18-2024 BUN/CRE 18.7 RATIO Normal 12-29 [facility] Comment on above: Performed By: #### L 501.4021, L100.0100, L500.2500 #### [facility] [address] [place], [address] Calcium [Mass/Vol] 9.1 mg/dL Normal 7.6-11.0 [facility] Comment on above: Performed By: #### L 501.4021, L100.0100, L500.2500 #### [facility] [address] [place], [address] Chloride [Moles/Vol] 100 mmol/L Normal 98-108 [facility] Comment on above: Performed By: #### L 501.4021, L100.0100, L500.2500 #### [facility] [address] [place], [address] CO2 [Moles/Vol] 24.3 mmol/L Normal 21.0-32.0 [facility] Comment on above: Performed By: #### L 501.4021, L100.0100, L500.2500 #### [facility] [address] [place], [address] Creatinine [Mass/Vol] 0.97 mg/dL Normal 0.70-1.20 [facility] Comment on above: Performed By: #### L 501.4021, L100.0100, L500.2500 #### [facility] [address] [place], [address] ECRCL 87.39 ml/min Normal 50-250 [facility] Comment on above: Performed By: #### L 501.4021, L100.0100, L500.2500 #### [facility] [address] [place], [address] GAP 11 Normal 5-15 [facility] Comment on above: Performed By: #### L 501.4021, L100.0100, L500.2500 #### [facility] [address] [place], [address] GFR/1.73 sq M.predicted among non-blacks MDRD (S/P/Bld) [Vol rate/Area] 89 mL/min/{1.73_m2} Normal >60 [facility] Comment on above: Result Comment: mL/m in/1.73m2 CKD-EPI Creatinine Equation (2020) Performed By: #### L 501.4021, L100.0100, L500.2500 #### [facility] [address] [place], [address] Glucose [Mass/Vol] 147 mg/dL High 70-99 [facility] Comment on above: Performed By: #### L 501.4021, L100.0100, L500.2500 #### [facility] [address] [place], [address] Potassium [Moles/Vol] 4.0 mmol/L Normal 3.3-5.1 [facility] Comment on above: Performed By: #### L 501.4021, L100.0100, L500.2500 #### [facility] [address] [place], [address] Sodium [Moles/Vol] 135 mmol/L Normal 133-145 [facility] Comment on above: Performed By: #### L 501.4021, L100.0100, L500.2500 #### [facility] [address] [place], [address] Urea nitrogen [Mass/Vol] 18 mg/dL Normal 4-19 [facility] Comment on above: Performed By: #### L 501.4021, L100.0100, L500.2500 #### [facility] [address] [place], [address] Basophil percentageOrdered B y: Edna Nichols on 07-18-2024 Basophils/100 WBC (Bld) 0.7 % 0-1 [facility] CBC W/Diff, Automatedon Absolute Lymph 1.44 X10 3/uL Normal 0.83-4.51 [facility] Comment on above: Performed By: #### L 501.4021, L100.0100, L500.2500 #### [facility] [address] [place], [address] Absolute Neut 9.1 X10 3/uL High 2.0-7.7 [facility] Comment on above: Performed By: #### L 501.4021, L100.0100, L500.2500 #### [facility] [address] [place], [address] Basophils/100 WBC (Bld) 0.7 % Normal 0-1 [facility] Comment on above: Performed By: #### L 501.4021, L100.0100, L500.2500 #### [facility] [address] [place], [address] Eosinophils/100 WBC (Bld) 1.9 % Normal 0-5 [facility] Comment on above: Performed By: #### L 501.4021, L100.0100, L500.2500 #### [facility] [address] [place], [address] Erythrocyte distribution width (RBC) [Ratio] 13.7 % Normal 11.6-14.6 [facility] Comment on above: Performed By: #### L 501.4021, L100.0100, L500.2500 #### [facility] [address] [place], [address] Hematocrit (Bld) [Volume fraction] 45.1 % Normal 40-54 [facility] Comment on above: Performed By: #### L 501.4021, L100.0100, L500.2500 #### [facility] [address] [place], [address] Hemoglobin (Bld) [Mass/Vol] 14.7 g/dL Normal 13.0-16.5 [facility] Comment on above: Performed By: #### L 501.4021, L100.0100, L500.2500 #### [facility] [address] [place], [address] IG% 0.600 Normal 0.0-0.9 [facility] Comment on above: Result Comment: IG% - Immature Granulocytes (promyelocytes, myelocytes and metamyelocytes) > 1% indicates that a LEFT SHIFT is Present. Performed By: #### L 501.4021, L100.0100, L500.2500 #### [facility] [address] [place], [address] Lymphocytes/100 WBC (Bld) 12.0 % Low 19-41 [facility] Comment on above: Performed By: #### L 501.4021, L100.0100, L500.2500 #### [facility] [address] [place], [address] MCH (RBC) [Entitic mass] 28.5 pg Normal 27.0-32.0 [facility] Comment on above: Performed By: #### L 501.4021, L100.0100, L500.2500 #### [facility] [address] [place], [address] MCHC (RBC) [Mass/Vol] 32.6 g/dL Normal 32-36 [facility] Comment on above: Performed By: #### L 501.4021, L100.0100, L500.2500 #### [facility] [address] [place], [address] MCV (RBC) [Entitic vol] 87.4 fL Normal 80-94 [place] Comment on above: Performed By: #### L 501.4021, L100.0100, L500.2500 #### [facility] [address] [place], [address] Monocytes/100 WBC (Bld) 9.7 % Normal 0-10 [facility] Comment on above: Performed By: #### L 501.4021, L100.0100, L500.2500 #### [facility] [address] [place], [address] Neutrophils/100 WBC (Bld) 75.1 % High 47-70 [facility] Comment on above: Performed By: #### L 501.4021, L100.0100, L500.2500 #### [facility] [address] [place], [address] Nucleated RBC (Bld) [#/Vol] 0 10*3/uL Normal 0-5 [facility] Comment on above: Performed By: #### L 501.4021, L100.0100, L500.2500 #### [facility] [address] [place], [address] Platelet mean volume (Bld) [Entitic vol] 12.0 fL Normal 6.2-12.0 [facility] Comment on above: Performed By: #### L 501.4021, L100.0100, L500.2500 #### [facility] [address] [place], [address] Platelets (Bld) [#/Vol] 227 10*3/uL Normal 150-450 [facility] Comment on above: Performed By: #### L 501.4021, L100.0100, L500.2500 #### [facility] [address] [place], [address] RBC (Bld) [#/Vol] 5.16 10*6/uL Normal 4.6-6.2 [facility] Comment on above: Performed By: #### L 501.4021, L100.0100, L500.2500 #### [facility] [address] [place], [address] RDW SD 44.6 fl High 35.1-43.9 [facility] Comment on above: Performed By: #### L 501.4021, L100.0100, L500.2500 #### [facility] [address] [place], [address] WBC (Bld) [#/Vol] 12.1 10*3/uL High 4.4-11.0 [facility] Comment on above: Performed By: #### L 501.4021, L100.0100, L500.2500 #### [facility] [address] [place], [address] Carbon dioxide, total [Moles /volume] in Central venous bloodOrdered By: Edna Nichols on 07-18-2024 CO2 [Moles/Vol] 24.3 mmol/L 21.0-32.0 [facility] Chest PA and Lateralon 07-18 Chest PA and L[address] [facility] Imaging Services [address] [place] [address] Chest PA and Lateral MR#: [id number] Acct: [id number] Name: BELL ROBISON Rep #: [id number] : 1965 M 59 From: Jomar zeng MD PCP: Care Physician,No Primary Status: REG ER Study: Chest PA and Lateral Date of Exam: 07/18/24 Exam# [id number] Ordering Dr: Edna Nichols PROCEDURE: CHEST PA AND LATERAL 07/18/2024 REASON FOR EXAM: SOB TECHNIQUE: Frontal and lateral views of the chest. COMPARISON: None FINDINGS: Hardware: None Heart: The heart size is normal. Mediastinum: The mediastinal contour is unremarkable. Lungs: No focal consolidation. No pneumothorax. No pleural effusion. Bones: The bones are unremarkable. RAD/Chest PA and Lateral IMPRESSION: NO ACUTE FINDINGS. Reading Location: [facility] CC: JASON Magdaleno; No Primary Care Physician Supervisor Chassis Assembly: Signed Normal [facility] Chloride assayOrdered By: Josselyn Nichols on 07-18-2024 Chloride [Moles/Vol] 100 mmol/L 98-108 [facility] Emergency Department Summary on 07-18-2024 Emergency Department Summary [facility] Medical Records Department [address] [place] [address] Emergency Department Summary 07/18/24 MR#: [id number] Acct: [id number] Name: BELL ROBISON Rep #: [id number] : 1965 59 From: Edna GOMEZ PCP: [...] 3 months. He has been seen in [facility] and [facility] for similar symptoms with no clear [...] he has been around people at the [employer] who are using it and has been exposed to it but denies recently using. He denies fevers, chills, abdominal pain, chest pain, nausea, and vomiting. [facility] Home Medications ???Medication ???Instructions ???Recorded ???Last Taken [...] H Re (more content not included)... Normal [facility] Eosinophil percentageOrdered By: Edna Nichols on 07-18-2024 Eosinophils/100 WBC (Bld) 1.9 % 0-5 [facility] Erythrocyte distribution wid th ratioOrdered By: Edna Nichols on 07-18-2024 Erythrocyte distribution width (RBC) [Ratio] 13.7 % 11.6-14.6 [facility] Erythrocyte distribution wid th standard deviationOrdered By: Edna Nichols on 07-18-2024 Erythrocyte distribution width (RBC) [Ratio] 44.6 fl High 35.1-43.9 [facility] Glomerular filtration rate ( GFR) estimation/1.73 sq m using serum, plasma, or whole bOrdered By: Edna Nichols on 07-18-2024 GFR/1.73 sq M.predicted among non-blacks MDRD (S/P/Bld) [Vol rate/Area] 89 mL/min/{1.73_m2} >60 [facility] Comment on above: mL/min/1.73m2 CKD-EP I Creatinine Equation (2020) Hematocrit Auto (Bld) [Volum e fraction]Ordered By: Edna Nichols on 07-18-2024 Hematocrit (Bld) [Volume fraction] 45.1 % 40-54 [facility] Hemoglobin measurementOrdere d By: Edna Nichols on 07-18-2024 Hemoglobin (Bld) [Mass/Vol] 14.7 g/dL 13.0-16.5 [facility] Immature granulocytes/100 WB C Auto (Bld)Ordered By: Edna Nichols on 07-18-2024 Immature granulocytes/100 WBC (Bld) 0.600 % 0.0-0.9 [facility] Comment on above: IG% - Immature Granu locytes (promyelocytes, myelocytes and metamyelocytes) > 1% indicates that a LEFT SHIFT is Present. L499.0042on 07-18-2024 Trop T High Sen Normal <=22 [facility] Comment on above: Result Comment: TROY ENT DISCHARGED Performed By: #### L 499.0042 #### [facility] [address] [place], [address] L501.4021on 07-18-2024 Trop T High Sen 19 ng/L Normal <=22 [facility] Comment on above: Performed By: #### L 501.4021, L100.0100, L500.2500 #### [facility] [address] [place], [address] MCV (mean corpuscular volume ) determinationOrdered By: Edan Nichols on 07-18-2024 MCV (RBC) [Entitic vol] 87.4 fL 80-94 [place] Mean corpuscular hemoglobin (MCH) determinationOrdered By: Edna Nichols on 07-18-2024 MCH (RBC) [Entitic mass] 28.5 pg 27.0-32.0 [facility] Mean corpuscular hemoglobin concentration (MCHC) determinationOrdered By: Edna Nichols on 07-18-2024 MCHC (RBC) [Mass/Vol] 32.6 g/dL 32-36 [facility] Mean platelet volume determi nationOrdered By: Edna Nichols on 07-18-2024 Platelet mean volume (Bld) [Entitic vol] 12.0 fL 6.2-12.0 [facility] Monocyte percentageOrdered B y: Edna Nichols on 07-18-2024 Monocytes/100 WBC (Bld) 9.7 % 0-10 [facility] Neutrophil percentageOrdered By: Edna Nichols on 07-18-2024 Neutrophils/100 WBC (Bld) 75.1 % High 47-70 [facility] Nucleated red blood cell per centageOrdered By: Edna Nichols on 07-18-2024 Nucleated RBC/100 WBC (Bld) [Ratio] 0 % 0-5 [facility] Platelet countOrdered By: Josselyn Nichols on 07-18-2024 Platelets (Bld) [#/Vol] 227 10*3/uL 150-450 [facility] Potassium measurement (mass/ volume)Ordered By: Edna Nichols on 07-18-2024 Potassium (Unsp spec) [Mass/Vol] 4.0 mmol/L 3.3-5.1 [facility] RBC Auto (Bld) [#/Vol]Ordere d By: Edna Nichols on 07-18-2024 RBC (Bld) [#/Vol] 5.16 10*6/uL 4.6-6.2 [facility] Serum creatinine measurement (mass/volume)Ordered By: Edna Nichols on 07-18-2024 Creatinine [Mass/Vol] 0.97 mg/dL 0.70-1.20 [facility] Serum glucose measurement (m ass/volume)Ordered By: Edna Nichols on 07-18-2024 Glucose [Mass/Vol] 147 mg/dL High 70-99 [facility] Serum or plasma calcium merlene urement (mass/volume)Ordered By: Edna Nichols on 07-18-2024 Calcium [Mass/Vol] 9.1 mg/dL 7.6-11.0 [facility] Serum or plasma urea nitroge n measurement (mass/volume)Ordered By: Edna Nichols on 07-18-2024 Urea nitrogen [Mass/Vol] 18 mg/dL 4-19 [facility] Sodium levelOrdered By: Rober Nichols on 07-18-2024 Sodium [Moles/Vol] 135 mmol/L 133-145 [facility] Troponin T.cardiac [Mass/vol ume] in Serum or Plasma by High sensitivity methodOrdered By: Edna Nichols on 07-18-2024 Troponin T.cardiac High sensitivity method [Mass/Vol] 19 ng/L <22 [facility] White blood cell (WBC) count Ordered By: Edna Nichols on 07-18-2024 WBC (Bld) [#/Vol] 12.1 10*3/uL High 4.4-11.0 [facility] .Auto Diffon 05-30-2024 Basophil, Absolute 0.0 10 3/mcL Normal 0.0-0.3 [facility] Comment on above: Performed By: #### B MP, WINDY, ANEU, MDW, GFR, CBC, TROPHS #### [address] [address] Basophils/100 WBC (Bld) 0.3 % Normal 0.0-2.5 [facility] Comment on above: Performed By: #### B MP, ADIFF, ANEU, MDW, GFR, CBC, TROPHS #### [address] [address] Eosinophil, Absolute 0.4 10 3/mcL Normal 0.0-0.7 [facility] Comment on above: Performed By: #### B MP, ADIFF, ANEU, MDW, GFR, CBC, TROPHS #### [address] [address] Eosinophils/100 WBC (Bld) 4.2 % Normal 0.0-6.0 [facility] Comment on above: Performed By: #### B MP, ADIFF, ANEU, MDW, GFR, CBC, TROPHS #### [address] [address] Lymphocyte, Absolute 1.8 10 3/mcL Normal 0.9-4.3 [facility] Comment on above: Performed By: #### B MP, ADIFF, ANEU, MDW, GFR, CBC, TROPHS #### [address] [address] Lymphocytes/100 WBC (Bld) 16.3 % Low 20.0-40.0 [facility] Comment on above: Performed By: #### B MP, ADIFF, ANEU, MDW, GFR, CBC, TROPHS #### [address] [address] Monocyte, Absolute 0.9 10 3/mcL Normal 0.1-1.4 [facility] Comment on above: Performed By: #### B MP, ADIFF, ANEU, MDW, GFR, CBC, TROPHS #### [address] [address] Monocytes/100 WBC (Bld) 8.0 % Normal 2.0-13.0 [facility] Comment on above: Performed By: #### B MP, ADIFF, ANEU, MDW, GFR, CBC, TROPHS #### [address] [address] Neutrophils/100 WBC (Bld) 71.2 % Normal 50.0-75.0 [facility] Comment on above: Performed By: #### B MP, ADIFF, ANEU, MDW, GFR, CBC, TROPHS #### [address] [address] .GFRon 05-30-2024 Estimated Glomerular Filtration Rate 103 ml/min/1.73sqm Normal [facility] Comment on above: Result Comment: Stages [...] ADMARTIN, ANEU, MDW, GFR, CBC, TROPHS #### [address] [address] .MDWon 05-30-2024 Monocyte Distribution Width 16.83 Normal 0.00-20.00 [facility] Comment on above: Result Comment: For ED adult patients suspected of sepsis, MDW<=20.0 does not rule out sepsis or risk of sepsis Performed By: #### B MP, ADIFF, ANEU, MDW, GFR, CBC, TROPHS #### [address] [address] .NEUABSon 05-30-2024 Neutrophil, Absolute 7.7 10 3/mcL Normal 2.3-8.1 [facility] Comment on above: Performed By: #### B MP, ADIFF, ANEU, MDW, GFR, CBC, TROPHS #### [address] [address] BMPon 05-30-2024 BUN/Creatinine Ratio 18.7 ratio Normal 10.0-22.0 [facility] Comment on above: Performed By: #### B WINDY WOODALL ANEU, MDW, GFR, CBC, TROPHS #### [address] [address] Calcium [Mass/Vol] 9.6 mg/dL Normal 8.7-10.4 [facility] Comment on above: Performed By: #### B WINDY WOODALL ANEU, MDW, GFR, CBC, TROPHS #### [address] [address] Chloride [Moles/Vol] 104 mmol/L Normal 98-110 [facility] Comment on above: Performed By: #### B WINDY WOODALL ANEU, MDW, GFR, CBC, TROPHS #### [address] [address] CO2 [Moles/Vol] 30 mmol/L Normal 22-32 [facility] Comment on above: Performed By: #### B WINDY WOODALL ANEU, MDW, GFR, CBC, TROPHS #### [address] [address] Creatinine [Mass/Vol] 0.75 mg/dL Normal 0.60-1.40 [facility] Comment on above: Result Comment: Test ing performed on [employer] analyzer using enzymatic creatinine methodology. Performed By: #### B WINDY WOODALL ANEU, MDW, GFR, CBC, TROPHS #### [address] [address] Electrolyte Balance 3.0 mEq/L Low 4.0-15.0 [facility] Comment on above: Performed By: #### B WINDY WOODALL ANEU, MDW, GFR, CBC, TROPHS #### [address] [address] Glucose [Mass/Vol] 90 mg/dL Normal 82-115 [facility] Comment on above: Performed By: #### B WINDY WOODALL ANEU, MDW, GFR, CBC, TROPHS #### [address] [address] Potassium [Moles/Vol] 4.2 mmol/L Normal 3.5-5.0 [facility] Comment on above: Performed By: #### B WINDY WOODALL ANEU, MDW, GFR, CBC, TROPHS #### [place] [address] Sodium [Moles/Vol] 137 mmol/L Normal 136-145 [facility] Comment on above: Performed By: #### B JOSE C, ARACELI TEM[place] MDW, GFR, CBC, TROPHS #### [place] [address] Urea nitrogen [Mass/Vol] 14.0 mg/dL Normal 8.0-22.0 [facility] Comment on above: Performed By: #### B WINDY WOODALL ANEU, MDW, GFR, CBC, TROPHS #### [place] [address] CBCon 05-30-2024 Erythrocyte distribution width (RBC) [Ratio] 15.3 % Normal 11.5-15.5 [facility] Comment on above: Performed By: #### B WINDY WOODALL ANEU, MDW, GFR, CBC, TROPHS #### [place] [address] Hematocrit (Bld) [Volume fraction] 45.6 % Normal 40.0-52.0 [facility] Comment on above: Performed By: #### B WINDY WOODALL ANEU, MDW, GFR, CBC, TROPHS #### [place] [address] Hgb 15.1 G/dL Normal 13.0-17.5 [facility] Comment on above: Performed By: #### B WINDY WOODALL ANEU, MDW, GFR, CBC, TROPHS #### [place] [address] MCH (RBC) [Entitic mass] 28.5 pg Normal 27.0-33.0 [facility] Comment on above: Performed By: #### B JOSE C, ARACELI TEM[place] MDW, GFR, CBC, TROPHS #### [place] [address] MCHC 33.0 G/dL Normal 32.0-36.0 [facility] Comment on above: Performed By: #### B JOSE C, WINDY, ARACELI, W, GFR, CBC, TROPHS #### [place] [address] MCV (RBC) [Entitic vol] 86.4 fL Normal 81.0-100.0 [facility] Comment on above: Performed By: #### B MP, WINDY, ARACELI, MDW, GFR, CBC, TROPHS #### [place] [address] Platelet 318 10 3/mcL Normal 150-450 [facility] Comment on above: Performed By: #### B JOSE C, WINDY, ARACELI, MDW, GFR, CBC, TROPHS #### [place] [address] Platelet mean volume (Bld) [Entitic vol] 8.9 fL Normal 6.4-10.5 [facility] Comment on above: Performed By: #### B JOSE C, WINDY, ARACELI, MDW, GFR, CBC, TROPHS #### [place] [address] RBC 5.28 10 6/mcL Normal 4.50-6.00 [facility] Comment on above: Performed By: #### B JOSE C, WINDY, ANEU, MDW, GFR, CBC, TROPHS #### [place] [id number] WBC 10.8 10 3/mcL Normal 4.5-10.8 [facility] Comment on above: Performed By: #### B JOSE C, WINDY, ARACELI, MDW, GFR, CBC, TROPHS #### [place] [address] LABORATORYOrdered By: SYSTEM SYSTEM on 05-30-2024 Troponin I.cardiac DL <= 0.01 ng/mL [Mass/Vol] 4 ng/L Normal 0 - 54 ng/L [facility] Comment on above: Interpretive Data: High Sensitive Troponin I Reference Ranges: Female: 0-34 ng/L Male: 0-54 ng/L Testing performed on [employer] IM analyzer using direct chemiluminescent technology. Basophils [...] above: Interpretive Data: T esting performed on [employer] CH analyzer using enzymatic creatinine methodology. Electrolyte [...] Sensitivity Troponin I 4 ng/L Normal 0-54 [facility] Comment on above: Result Comment: High Sensitive Troponin I Reference Ranges: Female: 0-34 ng/L Male: 0-54 ng/L Testing performed on [employer] IM analyzer using direct chemiluminescent technology. Performed By: #### T [facility] #### [place] [address] High Sensitivity Troponin I 6 ng/L Normal 0-54 [facility] Comment on above: Result Comment: High Sensitive Troponin I Reference Ranges: Female: 0-34 ng/L Male: 0-54 ng/L Testing performed on [employer] IM analyzer using direct chemiluminescent technology. Performed By: #### B MP, WINDY, ANEU, MDW, GFR, CBC, TROPHS #### [place] [address] XR CHEST 1 VIEWon 05-30-2024 XR CHEST [...] 05/30/2024 1:50:03 PM Ordering Provider: IZABELA VOGEL [facility] INFLUENZA VIRUS RAPID A/Bon 03-08-2022 [...] B IS RARE. IT IS RECOMMENDED THAT DUAL POSITIVE RESULTS BE CONFIRMED BY VIRAL CULTURE OR AN FDA-CLEARED INFLUENZA A AND B MOLECULAR ASSAY. INDIVIDUALS WHO HAVE RECEIVED NASALLY ADMINISTERED INFLUENZA A VACCINE MAY TEST POSITIVE IN COMMERCIALLY AVAILABLE INFLUENZA RAPID DIAGNOSTIC TESTS FOR UP TO THREE DAYS. RESULT CRITICAL? YES { CALLED TO BA/DNN { READ BACK BY [facility] Comment on above: Performed By: #### 2 [id number] #### [facility],[address] [place] [address] EMERGENCY REPORTon 2 EMERGENCY REPORT [facility] EMERGENCY ROOM REPORT NAME ACCOUNT SEX AGE ADMIT DISCHARGE PT MED. RECORD# NUMBER DATE DATE TYPE RICKI, [id number] M 56 09/12/21 09/13/21 2 BELL Zeng [id number] ROOM: [facility] [place], [place] DATE OF : 1965 DICTATING PHYSICIAN: Mauro Sancehz ADDENDUM: DIAGNOSTIC DATA: CT scan of the [...] Mauro Sanchez DO 09/13/21 01:57 JOB #: [id number] Transcribed By: am 09/14/21 12:17 Electronically signed by: E-Sign: Dr. Mauro Sanchez D.O. 09/26/21 09:21 Page 1 of 1 RICKI BELL Susan Emergency Room Report Normal [facility] EMERGENCY REPORT [facility] EMERGENCY ROOM REPORT NAME ACCOUNT SEX AGE ADMIT DISCHARGE PT MED. RECORD# NUMBER DATE DATE TYPE RICKI [id number] Yasemin 56 09/12/21 09/13/21 2 BELL Zeng [id number] ROOM: [facility] DATE OF : 1965 DICTATING PHYSICIAN: Mauro Sanchez Date seen is September 12, 2021 at 2125 hours. HISTORY OF PRESENT ILLNESS: The patient is a 56-year-old male incarcerated at the [facility] started complaining of some midsternal chest pain [...] had checked it several times at the retirement, and he states it was running high. [...] use. He is presently incarcerated at the [facility]. REVIEW OF SYSTEMS: The patient does admit [...] of 3 BELL ROBISON Emergency Room Report BELL ROBISON : 1965 Trachea is midline. No [...] motor or sensory deficits are noted. 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 SKIN: Skin is [...] No acute ST segment changes were noted. [place] is approximately 60 degrees. Chest x-ray did [...] he st (more content not included)... Normal [facility] ARTERIAL BLOOD GAS ANALYSISo n 09-13-2021 ALLENS TEST Positive Normal [facility] Comment on above: Result Comment: { TI ME CALLED 2220 Performed By: #### 2 16641 #### [facility],[address] [place] [address] ARTERIAL BLOOD GAS ANALYSIS Normal [facility] Comment on above: Result Comment: CHANTELLE RIAL BLOOD GAS Performed By: #### 2 31466 #### [facility],[address] [place] [address] BE 6 High -2 - 3 [facility] Comment on above: Performed By: #### 2 31461 #### [facility],[address] [place] [address] HCO3 (Bld) [Moles/Vol] 30 mmol/L High 22 - 26 [facility] Comment on above: Performed By: #### 2 13668 #### [facility],[address] [place] [address] Heart rate 94 /min Normal [facility] Comment on above: Performed By: #### 2 00444 #### [facility],[address] [place] [address] 08451 MODALITY RA Normal [facility] Comment on above: Performed By: #### 2 26934 #### [facility],[address] [place] [address] 44044 PCO2 45 mm Hg Normal 35 - 45 [facility] Comment on above: Performed By: #### 2 14498 #### [facility],[address] [place] [address] pH (Bld) 7.44 [pH] Normal 7.35 - 7.45 [facility] Comment on above: Performed By: #### 2 42302 #### [facility],[address] [place] [address] PO2 75 mm Hg Low 80 - 105 [facility] Comment on above: Performed By: #### 2 62179 #### [facility],[address] [place] [address] SAMPLE SITE LR Normal [facility] Comment on above: Performed By: #### 2 61291 #### [facility],[address] [place] [address] SaO2 95 Normal 95 - 98 [facility] Comment on above: Result Comment: TIME RESULT CALLED _2219 09/12/21.2212.JERRY. { FIO2/LPM 21% Performed By: #### 2 57500 #### [facility],[address] [place] [address] TOTAL RR 18 Normal [facility] Comment on above: Performed By: #### 2 48202 #### [facility],[address] [place] [address] VENT N/A Normal [facility] Comment on above: Performed By: #### 2 02442 #### [facility],[address] [place] [address] CBC + DIFFon 09-13-2021 Baso # 0.10 x10EE3/UL Normal 0.00 - 0.10 [facility] Comment on above: Performed By: #### 2 48915 #### [facility],[address] [place] [address] 44883 Basophils/100 WBC (Bld) 1.4 % Normal 0.0 - 2.0 [facility] Comment on above: Performed By: #### 2 53952 #### [facility],[address] [place] [address] 61610 CBC + DIFF Normal [facility] Comment on above: Result Comment: CBC- COMPLETE BLOOD COUNT Performed By: #### 2 78355 #### [facility],[address] [place] [address] 80366 EO # 0.60 x10EE3/UL High 0.00 - 0.50 [facility] Comment on above: Performed By: #### 2 13448 #### [facility],[address] [place] [address] 44937 Eosinophils/100 WBC (Bld) 7.9 % High 0.0 - 7.0 [facility] Comment on above: Performed By: #### 2 77203 #### [facility],[address] [place], [place] [id number] Erythrocyte distribution width (RBC) [Ratio] 14.7 % Normal 12.0 - 15.6 [facility] Comment on above: Performed By: #### 2 97062 #### [facility],[address] [place] [address] 18538 Hematocrit (Bld) [Volume fraction] 44.2 % Normal 40.0 - 52.0 [facility] Comment on above: Performed By: #### 2 04720 #### [facility],[address] [place] [address] 33106 Hemoglobin (Bld) [Mass/Vol] 14.6 g/dL Normal 13.0 - 17.5 [facility] Comment on above: Performed By: #### 2 35436 #### [facility],[address] [place] [address] 82013 Lymph # 1.90 x10EE3/UL Normal 0.80 - 2.80 [facility] Comment on above: Performed By: #### 2 42317 #### [facility],[address] [place] [address] 96683 Lymphocytes/100 WBC (Bld) 24.8 % Normal 20.0 - 45.0 [facility] Comment on above: Performed By: #### 2 67245 #### [facility],[address] [place] [address] 48808 MANUAL DIFF N/A Normal [facility] Comment on above: Performed By: #### 2 50372 #### [facility],[address] [place], [place] [id number] MCH (RBC) [Entitic mass] 29 pg Normal 27 - 33 [facility] Comment on above: Performed By: #### 2 56874 #### [facility],[address] [place] [address] MCHC 33 X10 3 Normal 32 - 36 [facility] Comment on above: Performed By: #### 2 75230 #### [facility],[address] [place] [address] 06220 MCV (RBC) [Entitic vol] 86 fL Normal 81 - 98 [facility] Comment on above: Performed By: #### 2 08933 #### [facility],[address] [place] [address] 27578 Kenton # 0.90 x10EE3/UL Normal 0.20 - 1.00 [facility] Comment on above: Performed By: #### 2 25668 #### [facility],[address] [place] [address] 78447 MONOS % 11.5 % High 0.0 - 10.0 [facility] Comment on above: Performed By: #### 2 36583 #### [facility],[address] [place] [address] 63782 Morphology Artur (Bld) [Interp] N/A Normal [facility] Comment on above: Result Comment: {CD] Performed By: #### 2 18262 #### [facility],[address] [place] [address] 74612 Neut # 4.20 x10EE3/UL Normal 1.50 - 7.10 [facility] Comment on above: Performed By: #### 2 23564 #### [facility],[address] [place] [address] 78220 Neutrophils/100 WBC (Bld) 54.4 % Normal 46.0 - 76.0 [facility] Comment on above: Performed By: #### 2 97588 #### [facility],[address] [place] [address] 11355 PLATELET 204 x10EE3/UL Normal 150 - 450 [facility] Comment on above: Performed By: #### 2 53905 #### [facility],[address] [place] [address] 10747 Platelet mean volume (Bld) [Entitic vol] 8.6 fL Normal 6.4 - 10.5 [facility] Comment on above: Result Comment: AUTO MATED DIFFERENTIAL Performed By: #### 2 49729 #### [facility],[address] [place] [address] 55428 RBC 5.12 x 10EE6/UL Normal 4.50 - 6.00 [facility] Comment on above: Performed By: #### 2 06555 #### [facility],[address] [place] [address] 30118 WBC 7.6 x 10EE3/UL Normal 4.5 - 10.8 [facility] Comment on above: Performed By: #### 2 93153 #### [facility],[address] [place] [address] 75345 CHEST 1 VIEWon 09-13-2021 CHEST 1 VIEW [place] [address] Patient: BELL ROBISON Phone#: : 1965 Age: 56 Gender: M Pt. Type: ER Account: [id number] Location: 010 Ordering: MAURO SANCHEZ Exam Date: 09/12/2021/22:25 Family Phys: Charge Code: [id number] Physician: [place] Order #: [id number] DLP Dose#: PROCEDURE: X-RAY CHEST 1 VIEW COMPARISON: [facility], CT, CHEST PE W CON, 09/12/2021, 23:39. [...] Pelaez MD on 09/13/2021 at 8:59 Normal [facility] CMP with eGFRon 09-13-2021 AGE 56 years Normal [facility] Comment on above: Performed By: #### 2 14966 #### [facility],[address] [place] [address] 48431 Albumin [Mass/Vol] 3.4 g/dL Normal 3.4 - 5.0 [facility] Comment on above: Performed By: #### 2 02419 #### [facility],[address] [place] [address] 15314 Albumin/Globulin [Mass ratio] 0.6 {ratio} Low 0.9 - 1.6 [facility] Comment on above: Performed By: #### 2 79544 #### [facility],[address] [place] [address] 29598 ALK PHOS 90 U/L Normal 46 - 116 [facility] Comment on above: Performed By: #### 2 32662 #### [facility],[address] [place] [address] 17749 ALT [Catalytic activity/Vol] 59 U/L Normal 16 - 63 [facility] Comment on above: Performed By: #### 2 00524 #### [facility],[address] [place] [address] 08722 Anion gap [Moles/Vol] 9 mmol/L Low 10 - 20 [facility] Comment on above: Performed By: #### 2 60298 #### [facility],[address] [place] [address] 88929 AST [Catalytic activity/Vol] 32 U/L Normal 15 - 37 [facility] Comment on above: Performed By: #### 2 45413 #### [facility],[address] [place] [address] 28538 B/C RATIO 16 ratio Normal 0 - 30 [facility] Comment on above: Performed By: #### 2 68565 #### [facility],[address] [place] [address] 02043 Bilirubin [Mass/Vol] 0.3 mg/dL Normal 0.2 - 1.0 [facility] Comment on above: Performed By: #### 2 48882 #### [facility],[address] [place] [address] 02292 Calcium [Mass/Vol] 9.0 mg/dL Normal 8.5 - 10.1 [facility] Comment on above: Performed By: #### 2 15007 #### [facility],[address] [place] [address] 03834 Chloride [Moles/Vol] 102 mmol/L Normal 98 - 107 [facility] Comment on above: Performed By: #### 2 01441 #### [facility],[address] [place] [address] 18388 CMP with eGFR Normal [facility] Comment on above: Result Comment: COMP REHENSIVE METABOLIC PANEL Performed By: #### 2 40249 #### [facility],[address] [place] [address] 54928 CO2 [Moles/Vol] 31.3 mmol/L Normal 21.0 - 32.0 [facility] Comment on above: Performed By: #### 2 24575 #### [facility],[address] [place] [address] 67512 Creatinine [Mass/Vol] 1.16 mg/dL Normal 0.70 - 1.30 [facility] Comment on above: Performed By: #### 2 92514 #### [facility],[address] [place] [address] 57238 GFR/1.73 sq M.predicted among non-blacks MDRD (S/P/Bld) [Vol rate/Area] mL/min/{1.73_m2} Normal 60 - 999 [facility] Comment on above: Performed By: #### 2 00455 #### [facility],[address] [place] [address] 09471 Result Comment: ACCO RDING TO THE NATIONAL KIDNEY DISEASE EDUCATION PROGRAM(NKDE), A NORMAL eGFR IS A VALUE GREATER THAN OR EQUAL TO 60 ML/MIN/1.73 SQ METERS. CHRONIC KIDNEY DISEASE: <60mL/MIN/1.73 SQ METERS KIDNEY FAILURE: <15mL/MIN/1.73 SQ METERS THIS TEST SHOULD ONLY BE USED FOR PATIENTS 18 YEARS OF AGE AND OLDER. Globulin (S) [Mass/Vol] 5.3 g/dL High 1.5 - 3.8 [facility] Comment on above: Performed By: #### 2 90408 #### [facility],[address] [place] [address] 84922 Glucose [Mass/Vol] 111 mg/dL High 74 - 106 [facility] Comment on above: Performed By: #### 2 01183 #### [facility],[address] [place] [address] 89092 Potassium [Moles/Vol] 4.1 mmol/L Normal 3.5 - 5.1 [facility] Comment on above: Performed By: #### 2 99202 #### [facility],[address] [place] [address] 39444 Protein [Mass/Vol] 8.7 g/dL High 6.4 - 8.2 [facility] Comment on above: Performed By: #### 2 85358 #### [facility],[address] [place] [address] 17410 Sodium [Moles/Vol] 138 mmol/L Normal 136 - 145 [facility] Comment on above: Performed By: #### 2 07632 #### [facility],[address] [place] [address] 50759 Urea nitrogen [Mass/Vol] 18 mg/dL Normal 7 - 18 [facility] Comment on above: Performed By: #### 2 61509 #### [facility],[address] [place], [place] [id number] CORONAVIRUS PCR - [facility] 09-13-2021 SARS-CoV-2 (COVID-19) RNA KAVITA+probe Ql (Unsp spec) Negative Normal NORMAL: NEGATIVE [facility] Comment on above: Performed By: #### 2 77496 #### [facility],[address] [place] [address] 56624 SEND TO IC? NO Normal [facility] Comment on above: Result Comment: RESU LTS FAXED TO INFECTION CONTROL. SARS-CoV-2 THIS TEST IS BEING USED UNDER THE FDA EUA PROCEDURE. THIS ASSAY HAS BEEN VALIDATED IN THE [facility] FOR USE WITH NASOPHARYNGEAL SPECIMENS IN [facility]. INTERPRETIVE DATA LABORATORY TEST RESULTS SHOULD ALWAYS [...] PUBLIC HEALTH AUTHORITIES. Performed By: #### 2 76829 #### [place] [address] [place] CHEST (PE PROTOCOL)on CT CHEST (PE PROTOCOL) [place] [address] Patient: BELL ROBISON Phone#: : 1965 Age: 56 Gender: M Pt. Type: ER Account: [id number] Location: [facility] Ordering: MAURO SANCHEZ Exam Date: 09/12/2021/23:39 Family Phys: Charge Code: [id number] Physician: [place] Order #: [id number] DLP Dose#: 6.70 PROCEDURE: CT CHEST WITH [...] 56 Gender: M Pt. Type: ER Account: [id number] Location: [facility] Ordering: MAURO SANCHEZ Exam Date: 09/12/2021/23:39 Family Phys: Charge Code: [id number] Physician: [place] Order #: [id number] DLP Dose#: 6.70 CONCLUSION: 1. No pulmonary [...] Pelaez MD on 09/13/2021 at 13:46 Normal [facility] CULTURE BLOODon 09-13-2021 Microscopic examination of blood, culture CULTURE BLOOD CULTURE BLOOD SET: 2 of 2 24HOUR REPORT NEGATIVE 48HOUR REPORT NEGATIVE 72HOUR REPORT NEGATIVE M I C R O B I O L O G Y R E P O R T FINAL --------- Antimicrobial Susceptibility and Organism Identification Report Specimen Number : [id number] Requested : 09/12/21 Specimen Source : BLOOD Collected : 09/12/21 22:19 [facility] : EMERGENCY ROOM Received : 09/12/21 22:19 Requesting Physician : LAURA Patient/Specimen Tests and Comments Specimen Comments FINAL REPORT: NO GROWTH AT 5 DAYS Tech : __ Source : BLOOD ID # : [id number] FINAL Report Date : / / : Collected : 09/12/21 22:19 09/18/21.1517.EMMA. 09/18/21.1517.EMMA.COMPLE TE 2 of 2 NEGATIVE NEGATIVE NEGATIVE Normal [facility] Comment on above: Performed By: #### 2 76428 #### [facility],[address] [place] [address] 26357 Microscopic examination of blood, culture CULTURE BLOOD CULTURE BLOOD SET: 1 of 2 24HOUR REPORT NEGATIVE 48HOUR REPORT NEGATIVE 72HOUR REPORT NEGATIVE M I C R O B I O L O G Y R E P O R T FINAL --------- Antimicrobial Susceptibility and Organism Identification Report Specimen Number : [id number] Requested : 09/12/21 Specimen Source : BLOOD Collected : 09/12/21 22:17 [facility] : EMERGENCY ROOM Received : 09/12/21 22:17 Requesting Physician : LAURA Patient/Specimen Tests and Comments Specimen Comments FINAL REPORT: NO GROWTH AT 5 DAYS Tech : __ Source : BLOOD ID # : [id number] FINAL Report Date : / / : Collected : 09/12/21 22:17 09/18/21.1517.BKO. 09/18/21.1517.BKO.COMPLE TE 1 of 2 NEGATIVE NEGATIVE NEGATIVE Normal [facility] Comment on above: Performed By: #### 2 15689 #### [facility],[address] [place] [address] CV ECHO COMPLETE CV ECHO [place] [address] Patient: BELL ROBISON Phone#: : 1965 Age: 56 Gender: M Pt. Type: ER Account: [id number] Location: [facility] Ordering: TEENA ALMANZAR Exam Date: 09/13/2021/8:47 Family Phys: Charge Code: [id number] Physician: [place] Order #: [id number] DLP Dose#: PROCEDURE: ECHOCARDIOGRAM WITH DOPPLER AND COLOR FLOW HISTORY: Patient is a 56-year-old male with chest pain INDICATIONS: Dyspnea COMPARISON: None. TECHNIQUE: A 2-D ultrasound, color spectral Doppler and M-mode evaluation of the heart and great vessels. PATIENT MEASUREMENTS: Height (in.): 70 BSA: 2.1 Weight (lbs.): 193 BP: 165/94 Frit Burner: LUCY M MODE 2D MEASUREMENTS AND CALCULATIONS: [...] 56 Gender: M Pt. Type: ER Account: [id number] Location: 010 Ordering: TEENA ALMANZAR Exam Date: 09/13/2021/8:47 Family Phys: Charge Code: [id number] Physician: [place] Order #: [id number] DLP Dose#: AORTIC Ao V2 max: 1.60 [...] 56 Gender: M Pt. Type: ER Account: [id number] Location: [facility] Ordering: TEENA ALMANZAR Exam Date: 09/13/2021/8:47 Family Phys: Charge Code: [id number] Physician: [place] Order #: [id number] DLP Dose#: 1. Left ventricle is normal [...] CARMONA MD on 09/13/2021 at 10:14 Normal [facility] D-DIMER, QUANTITATIVEon 07-0 D-DIMER QUANT 855 ng/ml High 0 - 230 [facility] Comment on above: Performed By: #### 2 05891 #### [facility],[address] [place] [address] 88832 D-DIMER, QUANTITATIVE Normal [facility] Comment on above: Result Comment: EMELI T D-DIMER Performed By: #### 2 23503 #### [facility],[address] [place] [address] 33341 INFLUENZA VIRUS RAPID A/Bon 07-05-2022 INFLUENZA VIRUS RAPID A/B INFLUENZA A NEGATIVE [...] B IS RARE. IT IS RECOMMENDED THAT DUAL POSITIVE RESULTS BE CONFIRMED BY VIRAL CULTURE OR AN FDA-CLEARED INFLUENZA A AND B MOLECULAR ASSAY. INDIVIDUALS WHO HAVE RECEIVED NASALLY ADMINISTERED INFLUENZA A VACCINE MAY TEST POSITIVE IN COMMERCIALLY AVAILABLE INFLUENZA RAPID DIAGNOSTIC TESTS FOR UP TO THREE DAYS. Normal [facility] Comment on above: Performed By: #### 2 23050 #### [facility],[address] [place] [address] LACTATEon 09-13-2021 Lactate [Moles/Vol] 1.2 mmol/L Normal 0.4 - 2.0 [facility] Comment on above: Performed By: #### 2 62911 #### [facility],[address] [place], [place] [id number] NM CARDIAC STRESS (SPECT) W/ LEXISCANon 09-13-2021 NM CARDIAC STRESS (SPECT) W/[place] [id number] Patient: BELL ROBISON Phone#: : 1965 Age: 56 Gender: M Pt. Type: ER Account: [id number] Location: [facility] Ordering: TEENA ALMANZAR Exam Date: 09/13/2021/7:11 Family Phys: Charge Code: 119450 Physician: [place] Order #: [id number] DLP Dose#: CORRECTION Corrected on: 09/13/2021; PROCEDURE: [...] 56 Gender: M Pt. Type: ER Account: [id number] Location: [facility] Ordering: TEENA ALMANZAR Exam Date: 09/13/2021/7:11 Family Phys: Charge Code: 735224 Physician: [place] Order #: [id number] DLP Dose#: 3. Calculated ejection fraction is 64% with normal wall motion. 4. TID ratio is normal Dictated by: MELISSA CARMONA MD on 09/13/2021 at 9:50 Approved by: MELISSA CARMONA MD on 09/13/2021 at 9:54 Dictated by: MELISSA CARMONA MD on 09/13/2021 at 10:17 Approved by: MELISSA CARMONA MD on 09/13/2021 at 10:17 Normal [facility] NM EXERCISE STRESS TEST (W/C ARDIAC STUDYon 09-13-2021 NM EXERCISE STRESS TEST (W/CARDIAC STUDY [place] [address] Patient: RICKI BELL SusanRajani Phone#: : 1965 Age: 56 Gender: M Pt. Type: ER Account: [id number] Location: 010 Ordering: GREGSSER JENELLE Exam Date: 09/13/2021/7:11 Family Phys: Charge Code: [id number] Physician: [place] Order #: [id number] DLP Dose#: PROCEDURE: ELECTROCARDIOGRAM STRESS TEST HISTORY: [...] 56 Gender: M Pt. Type: ER Account: [id number] Location: 010 Ordering: YASSER JENELLE Exam Date: 09/13/2021/7:11 Family Phys: Charge Code: 107835 Physician: [place] Order #: [id number] DLP Dose#: 4. Nuclear images will be read and reported separately Dictated by: MELISSA CARMONA MD on 09/13/2021 at 9:38 Approved by: MELISSA CARMONA MD on 09/13/2021 at 9:43 Normal [facility] NT-proBNPon 09-13-2021 Natriuretic peptide B (Bld) [Mass/Vol] 66 pg/mL Normal 0 - 125 [facility] Comment on above: Performed By: #### 2 68799 #### [facility],[address] [place] [address] TROPONIN I, HIGH SENSITIVITY on 09-13-2021 HS TROPONIN 4.1 pg/mL Normal 0.0 - 76.2 [facility] Comment on above: Performed By: #### 2 60955 #### [facility],[address] [place] [address] HS TROPONIN 4.9 pg/mL Normal 0.0 - 76.2 [facility] Comment on above: Performed By: #### 2 70834 #### [facility],[address] [place] [address] HS TROPONIN 4.8 pg/mL Normal 0.0 - 76.2 [facility] Comment on above: Performed By: #### 2 15724 #### [facility],[address] [place] [address] URINALYSISon 09-13-2021 Amorphous NONE Normal [facility] Comment on above: Performed By: #### 2 94731 #### [facility],[address] [place] [address] Bacteria TRACE Normal [facility] Comment on above: Performed By: #### 2 56234 #### [facility],[address] [place] [address] Bilirubin Ql (U) Negative Normal NORMAL: NEGATIVE [facility] Comment on above: Performed By: #### 2 05762 #### [facility],[address] [place] [address] Casts NONE Normal [facility] Comment on above: Performed By: #### 2 26743 #### [facility],[address] [place], [place] [id number] Clarity (U) clear Normal NORMAL: CLEAR [facility] Comment on above: Performed By: #### 2 98162 #### [facility],[address] [place] [address] 85504 Color (U) yellow Normal NORMAL: YELLOW [facility] Comment on above: Performed By: #### 2 [id number] #### [facility],[address] [place] [address] 67370 Crystals LM Nom (Urine sed) NONE Normal [facility] Comment on above: Performed By: #### 2 07928 #### [facility],[address] [place] [address] 70291 Epi Cells NONE Normal [facility] Comment on above: Performed By: #### 2 22758 #### [facility],[address] [place] [address] 09641 Glucose Ql (U) NORM Normal NORMAL: NORMAL [facility] Comment on above: Performed By: #### 2 13437 #### [facility],[address] [place] [address] 11096 Hemoglobin Ql (U) Negative Normal NORMAL: NEGATIVE [facility] Comment on above: Performed By: #### 2 95452 #### [facility],[address] [place] [address] 85346 Ketone Negative Normal NORMAL: NEGATIVE [facility] Comment on above: Performed By: #### 2 17589 #### [facility],[address] [place] [address] 53377 Leukocytes 25 Abnormal NORMAL: NEGATIVE [facility] Comment on above: Performed By: #### 2 57851 #### [facility],[address] [place] [address] 02032 Mucous NONE Normal [facility] Comment on above: Performed By: #### 2 03460 #### [facility],[address] [place] [address] 80267 Nitrite Ql (U) Negative Normal NORMAL: NEGATIVE [facility] Comment on above: Performed By: #### 2 05013 #### [facility],[address] [place] [address] pH (U) 7 [pH] Normal NORMAL: 5.0-8.0 [facility] Comment on above: Performed By: #### 2 32180 #### [facility],[address] [place] [address] Protein Ql (U) 15 Abnormal NORMAL: NEGATIVE [facility] Comment on above: Performed By: #### 2 73726 #### [facility],[address] [place] [address] Rbc NONE Normal 0-3/hpf [facility] Comment on above: Performed By: #### 2 06154 #### [facility],[address] [place] [address] Sp [place] 1.010 Normal NORMAL: 1.010-1.030 [facility] Comment on above: Performed By: #### 2 55239 #### [facility],[address] [place] [address] Specimen Type UNSPECIFIED Normal [facility] Comment on above: Performed By: #### 2 84627 #### [facility],[address] [place] [address] Urinalysis dipstick W Reflex Microscopic panel (U) SEE BELOW Normal [facility] Comment on above: Result Comment: MICR OSCOPIC Performed By: #### 2 31326 #### [facility],[address] [place] [address] Urobilinog 1 Abnormal NORMAL: NORMAL [facility] Comment on above: Performed By: #### 2 15714 #### [facility],[address] [place] [address] Wbc 1-5 Normal 0-5/hpf [facility] Comment on above: Performed By: #### 2 21940 #### [facility],[address] [place] [address] Yeast NONE Normal [facility] Comment on above: Performed By: #### 2 61258 #### [facility],[address] [place] [address] 50659 Auto Diffon 02-24-2017 Basophils Auto #/vol (Bld) 0.0 E3/mcL Normal 0.0-0.2 [facility] Comment on above: Order Comment: Order Added by Discern Expert. Performed By: #### 2 837607 ####MINDI [address] [place] [address] Basophils/100 WBC Auto (Bld) 0.4 % Normal 0.0-2.0 [facility] Comment on above: Order Comment: Order Added by Discern Expert. Performed By: #### 2 165568 ####MINDI PlsBrgc[address] [place] [address] Eos Absolute 0.3 E3/mcL Normal 0.0-0.7 [facility] Comment on above: Order Comment: Order Added by Discern Expert. Performed By: #### 2 847898 ####MINDI IkwQeqb30[address] [place] [address] Eosinophils/100 leukocytes 3.2 % Normal 0.0-11.0 [facility] Comment on above: Order Comment: Order Added by Discern Expert. Performed By: #### 2 916785 ####MINDI MhoMkeb8846 [place] [address] Lymphocytes 1.8 E3/mcL Normal 1.2-3.4 [facility] Comment on above: Order Comment: Order Added by Discern Expert. Performed By: #### 2 236656 ####MINDI VfgAvwj[address] [place] [address] Lymphocytes/100 leukocytes 19.6 % Low 20.0-55.0 [facility] Comment on above: Order Comment: Order Added by Discern Expert. Performed By: #### 2 499657 ####MINDI Zoz[address] [place] [address] [place] Absolute 1.1 E3/mcL High 0.0-0.7 [facility] Comment on above: Order Comment: Order Added by Discern Expert. Performed By: #### 2 752653 ####MINDIYoav WilkersonCsrUhln[address] [place] 8689905 Monocytes/100 leukocytes 12.5 % High 0.0-10.0 [facility] Comment on above: Order Comment: Order Added by Discern Expert. Performed By: #### 2 053899 ####MINDI Rodgerso[address] [place] [address] Neutro Absolute 5.8 E3/mcL Normal 1.4-6.5 [facility] Comment on above: Order Comment: Order Added by Discern Expert. Performed By: #### 2 029071 ####MINDI [address] [place] [address] Neutro Auto 64.3 % Normal 37.0-75.0 [facility] Comment on above: Order Comment: Order Added by Discern Expert. Performed By: #### 2 787442 ####MINDI [address] [place] [address] BMPon 02-24-2017 BUN/Creatinine Ratio 15.0 ratio Normal 5.4-30.0 [facility] Comment on above: Performed By: #### 2 472312 ####MINDI WilkersonRruJoqa[address] [place] [address] Creatinine 1.0 mg/dL Normal 0.6-1.3 [facility] Comment on above: Performed By: #### 2 624662 ####MINDI Gavin[address] [place] [address] Urea nitrogen 15 mg/dL Normal 7-18 [facility] Comment on above: Performed By: #### 2 264395 ####MINDI WilkersonHpbCfqt6670 [place] [address] Calcium 8.6 mg/dL Normal 8.4-10.2 [facility] Comment on above: Performed By: #### 2 510832 ####MINDI WilkersonDreCrdh[address] [place] [address] Chloride 98 mmol/L Normal 98-107 [facility] Comment on above: Performed By: #### 2 975805 ####MINDI WilkersonXakIfyz[address] [place] [address] CO2 28.1 mmol/L Normal 24.0-30.0 [facility] Comment on above: Performed By: #### 2 098826 ####MINDI WilkersonBlfXnxf[address] [place] [address] Glucose mass conc 137 mg/dL High 70-99 [facility] Comment on above: Performed By: #### 2 175823 ####MINDI WilkersonMfsLtti85[address] [place] [address] Potassium molar conc 4.6 mmol/L Normal 3.5-5.1 [facility] Comment on above: Performed By: #### 2 635034 ####MINDI WilkersonLidUiry23[address] [place] [address] Sodium 134 mmol/L Low 136-145 [facility] Comment on above: Performed By: #### 2 794540 ####MINDI WilkersonPmnIvcy[address] [place] [address] CBC w/ Auto Diffon 7 Erythrocyte distribution width Auto Ratio (RBC) 16.0 % High 11.5-14.5 [facility] Comment on above: Performed By: #### 2 207150 ####MINDI Rodgers[address] [place] [address] Erythrocytes (RBC) 5.09 E6/mcL Normal 3.90-6.10 [facility] Comment on above: Performed By: #### 2 034464 ####MINDI [address] [place] [address] Hematocrit (HCT) 43.5 % Normal 42.0-52.0 [facility] Comment on above: Performed By: #### 2 875663 ####MINDI [address] [place] [address] Hemoglobin mass conc (Bld) 14.4 g/dL Normal 13.5-18.0 [facility] Comment on above: Performed By: #### 2 249502 ####MINDI WilkersonBbiPnse[address] [place] [address] MCH 28.2 pg Normal 27.0-31.0 [facility] Comment on above: Performed By: #### 2 178835 ####MINDI WilkersonZrfUvdd1476 [place] [address] MCHC mass conc (RBC) 33.1 g/dL Normal 33.0-37.0 [facility] Comment on above: Performed By: #### 2 803703 ####MINDI [address] [place] [address] MCV 85.4 fL Normal 78.0-100.0 [facility] Comment on above: Performed By: #### 2 428655 ####MINDI [address] [place] [address] Platelet mean volume (PMV) 9.6 fL Normal 7.4-11.0 [facility] Comment on above: Performed By: #### 2 933115 ####MINDI [address] [place] [address] Platelets 225 E3/mcL Normal 130-400 [facility] Comment on above: Performed By: #### 2 002559 ####MINDI [address] [place] [address] WBC (Leukocytes) 9.1 E3/mcL Normal 3.6-11.0 [facility] Comment on above: Performed By: #### 2 166609 ####MINDI [address] [place] [address] CTA Cheston 02-24-2017 CTA Chest Exam Date/Time:02/24/2017 [...] by: Reji Hay MD Technologist: LELA Normal [facility] D-Dimeron 02-24-2017 D-Dimer 0.30 mg/L FEU Normal <=0.50 [facility] Comment on above: Result Comment: Norm al D Dimer level indicates no Deep Vein Thrombosis (DVT) or Pulmonary Embolism (PE).Elevated D Dimer level indicates additional studies and clinical assessments are indicated to conclude diagnosis of Deep Vein Thromobsis (DVT) or Pulmonary Embolism (PE). Performed By: #### 2 812544 ####MINDI [facility] [address] [place] [address] Magnesiumon 02-24-2017 Magnesium 2.1 mg/dL Normal 1.7-2.8 [facility] Comment on above: Performed By: #### 2 162874 ####MINDI XswMfpk83[address] [place] [address] PTon 02-24-2017 INR Coag RelTime (PPP) 1.3 {INR} High 1.0-1.2 [facility] Comment on above: Result Comment: INR Recommended Therapeuptic Ranges: Prophylaxis/treatment of DVT and PE?2.0-3.0 Prevention of systemic embolism?.2.0-3.0 Mechanical prosthetic values?2.5-3.5 CRITICAL VALUES?.>4.0 Performed By: #### 2 876714 ####[facility] [address] [place] [address] Prothrombin time (PT) Coag time (PPP) 15.2 second(s) High 11.6-14.6 [facility] Comment on above: Performed By: #### 2 461746 ####[facility]I [facility] [address] [place] [address] 847[address] PTTon 02-24-2017 aPTT 32.7 second(s) Normal 23.2-36.4 [facility] Comment on above: Performed By: #### 2 841112 ####MINDI [facility] [address] [place] [address] 17065 PTT Control Ratioon 02-25-20 17 PTT Ratio 1.1 ratio Normal 0.8-1.2 [facility] Comment on above: Order Comment: Order added by Discern Expert. Performed By: #### 8 [id number] ####[facility]I [facility] [address] [address] Troponin-Ion 02-24-2017 Troponin I.cardiac mass conc ng/mL Normal .00-.03 [facility] Comment on above: Performed By: #### 2 212304 ####MINDI [address]eg[address] [place] [address] Troponin I.cardiac mass conc ng/mL Normal .00-.03 [facility] Comment on above: Performed By: #### 2 950966 ####MINDI QdqCepp[address] [place] [address] XR Chest 1 View Frontalon INR Coag [...] pmSigned by: Hema Bartholomew DO Technologist: [place] [facility] eGFRon 02-24-2017 eGFR (non-black) mL/min/{1.73_m2} [facility] Comment on above: Order Comment: Order added by Discern Expert. Performed By: #### 1 [id number] ####MINDI Y[address]Rwqx[address] [place] [address] Vital Signs Date Time Vital Sign Value Performing Clinician Facility 07-18-2024 21:19-0400 Body temperature 98 [degF] No Primary Care Physician [facility] 07-18-2024 21:19-0400 Diastolic blood pressure 86 mm[Hg] No Primary Care Physician [facility] 07-18-2024 21:19-0400 Heart rate 110 /min No Primary Care Physician [facility] 07-18-2024 21:19-0400 Respiratory rate 25 /min No Primary Care Physician [facility] 07-18-2024 21:19-0400 SaO2% (BldA) [Mass fraction] 93 % No Primary Care Physician [facility] 07-18-2024 21:19-0400 Systolic blood pressure 153 mm[Hg] No Primary Care Physician [facility] 07-18-2024 18:08-0400 Body height 175.26 cm No Primary Care Physician [facility] 07-18-2024 18:08-0400 Body mass index (BMI) [Ratio] 28.3 kg/m2 No Primary Care Physician [facility] 07-18-2024 18:08-0400 Body weight 87.08 kg No Primary Care Physician [facility] 05-30-2024 16:45-0400 Diastolic Blood Pressure Non-Invasive 85 mm[Hg] DR KIT MARTINEZ MD [facility] 05-30-2024 16:45-0400 Heart rate 99 /min DR KIT MARTINEZ MD [facility] 05-30-2024 16:45-0400 Respiratory rate 20 /min DR KIT MARTINEZ MD [facility] 05-30-2024 16:45-0400 Systolic Blood Pressure Non-Invasive 173 mm[Hg] DR KIT MARTINEZ MD [facility] 05-30-2024 15:23-0400 Heart rate 94 /min DR KIT MARTINEZ MD [address] [place] [address] 05-30-2024 15:23-0400 Respiratory rate 18 /min DR KIT MARTINEZ MD [address] [place] [address] 05-30-2024 14:20-0400 Heart rate 99 /min DR KIT MARTINEZ MD [address] [place] [address] 05-30-2024 14:20-0400 Reason For Taking VItal Signs DR KIT MARTINEZ MD [address] [place] [address] 05-30-2024 14:20-0400 Respiratory rate 20 /min DR KIT MARTINEZ MD [address] [place] [address] 05-30-2024 12:49-0400 Blood Pressure Cuff Size DR KIT MARTINEZ MD [address] [place] [address] 05-30-2024 12:49-[address] KIT MARTINEZ MD [address] [place] [address] 05-30-2024 12:49-[address] KIT MARTINEZ MD [address] [place] [address] 05-30-2024 12:49-0400 Body temperature 98.42 [degF] DR KIT MARTINEZ MD [facility] 05-30-2024 12:49-0400 Body weight [address] KIT MARTINEZ MD [address] [place] [address] 05-30-2024 12:49-0400 Diastolic Blood Pressure Non-Invasive 90 mm[Hg] DR KIT MARTINEZ MD [address] [place] [address] 05-30-2024 12:49-0400 Heart rate 96 /min DR KIT MARTINEZ MD [address] [place] [address] 05-30-2024 12:49-0400 Systolic Blood Pressure Non-Invasive 155 mm[Hg] DR KIT MARTINEZ MD [facility] 09-13-2021 00:20-0400 SaO2% (BldA) [Mass fraction] 96 % TEENA [facility] Comment on above: Performed By: #### [id number] #### [address] [address] Encounters Encounter Date Encounter Type Care Provider Facility Start: 07-18-2024 End: 07-18-2024 Emergency department patient visit No Primary Care Physician -Emergency Department Work Phone: Start: 05-30-2024 End: 05-30-2024 Emergency department patient visit DR KIT MARTINEZ MD [facility] Start: 05-30-2024 End: 05-30-2024 ambulatory DIONNE THAYER PA-C Facility:A Start: 03-08-2022 End: 03-08-2022 ambulatory KENYETTA MCGILL [facility] Start: 09-12-2021 End: 09-13-2021 ambulatory TEENA PEREZ [facility] Start: 02-24-2017 End: 02-25-2017 Emergency department patient visit Mikala Cole Facility:[facility] Procedures Date Procedure Procedure Detail Performing Clinician Start: 07-18-2024 X-ray of chest, PA a nd lateral views No Primary Care Physician Start: 07-18-2024 Estimated creatinine clearance No Primary Care Physician Start: 09-13-2021 Urinalysis TEENA ALMONTE Comment on above: Result Comment: URIN ALYSIS Performed By: #### 2 32663 #### [address] [address] Open reduction of fracture with internal fixation DR KIT MARTINEZ MD Plan of Treatment Date Care Activity Detail Author Start: 07-18-2024 End: 07-18-2024 [facility] Start: 07-18-2024 [facility] Patient Education ED Arthralgia ED Dyspnea [facility] Work Phone: Patient referral [facility] Work Phone: Troponin T.cardiac [Mass/volume] in Serum or Plasma by High sensitivity method [facility] Payers Date Payer Category Payer Self-pay [id number] 2024 Unknown [id number] 2017 Unknown 1965 Unknown [id number] [id number] [id number] 1965 Unknown [id number] [id number] [id number] [facility] [id number] Unknown [id number] 2.16.8 [id number] Social History Date Type Detail Facility Start: 05-30-2024 Tobacco smoking status Light t obacco smoker (finding) [facility] Start: 04-19-2005 Sex Male (finding) [facility] Start: 07-18-2024 Tobacco smoking stat [facility] Smokes tobacco daily (finding) [facility] Start: 1965 Sex Assigned At Male [facility] Functional Status Date Assessment Result Facility 05-30-2024 Functional Status Independent [facility] 05-30-2024 Functional Status Standard Safety Safety level maintained [facility] 05-30-2024 Functional Status Repositions self [facility] Mental Status Date Assessment Result Facility 07-18-2024 Cognitive function Level Of Cons ciousness Awake;Alert;Appropriate;Follow s Commands [facility] Work Phone: 05-30-2024 Mental Status O[facility] Oriented x [facility] 05-30[facility]24 [facility] 07-18-2024 Note Date & Type Note Facility 07-18-2024 Radiology Diagnostic study note [facility] Imaging Services [address] [place] [address] Chest PA and Lateral MR#: [id number] Acct: [id number] Name: BELL ROBISON Rep #: [id number] : [id number] M 59 From: Anita Hernandez MD PCP: Care Physician,No Primary Status: REG ER Study:Chest PA and Lateral Date of Exam: 07/18/24 Exam# [id number] Ordering Dr: Edna Schmidt PROCEDURE: CHEST PA [...] JASON Magdaleno; No Primary Care Physician ~ Supervisor Chassis Assembly: Signed [facility] Hospital Discharge instructions 07-18-2024 Note Date & Type Note Facility 07-18-2024 Hospital Discharg e instructions Additional Instructions Please follow-up with pain management. Can also follow-up at the [facility] clinic if you need a PCP at [phone]. Take Tylenol and ibuprofen for your pain as needed. [facility] Work Phone: Hospital Discharge instructions 05-30-2024 Note [...] when standing up too quickly or straining [phone] [employer]. [address] [place] [address], [place] [address]. All rights reserved. This information is not intended as a substitute for professional medical care. Always follow your healthcare professional's instructions. Follow Up Care 05/30/2024 12:48:14 With:FANG VELARDE MD Address: [address] [place] [address] [phone] When:2-4 days Comments:[facility] contact information [facility] Emergency department Discharge summary 05-30-2024 Note Date & Type Note Facility 05-30-2024 Emergency departm ent Discharge summary Discharge Instructions Thank you for allowing [facility] to assist you with your healthcare needs. [...] within 14 days after discharge, please call [facility] at [phone]. Post Acute Orders No qualifying data available. You Need to Schedule the Following Appointments Follow Up with FANG VELARDE MD When:Within 2-4 days Where:[address] [place] [phone] Additional Information: [facility] contact information Allergies [...] when standing up too quickly or straining [phone] [employer]. [address] [place] [address], [place] [address]. All rights reserved. This information is not intended as a substitute for professional medical care. Always follow your healthcare professional's instructions. Additional Information VACCINATE! IT SAVES LIVES! Members of the community who have not yet received the COVID-19 vaccine and would like to receive it can visit one of [facility] vaccine clinics. There are many vaccine clinic locations within the [facility]. For locations and available times, please visit www.gettheshot.coronavirus.[place].gov/. It is important to note that some COVID mobile vaccine clinics are held outdoors and may be canceled in rainy or stormy conditions. To learn more about pediatric vaccinations (ages 5-11), we invite you to visit the [facility] webpage. https://www.[email or web address].org/pages/ 1792-Ytqbp-Hugzaroxegw-Frequently-Ask ed-Questions.html To learn more about the COVID-19 vaccine, we invite you to visit the CDC website for a list of frequently asked questions. https://www.cdc.gov/coronavirus/2019- ncov/vaccines/faq.html [facility] Patient Portal Access Instructions: Stay connected with your healthcare team and access your personal medical information anytime with the [facility] Patient Portal. If you would like a full copy of your medical records please contact the [facility] Medical Records Department Sunday through Sunday between 8a.m. and 4:30p.m. Please follow the directions below to access the portal: 1.Access the email account you provided upon registration to the hospital.2.Look for an invitation email from [facility].3.Open the email and access the invitation link: Accept Invitation to [facility]4.Fill in the required newberry to create your account. Sign into [email or web address] with your username and password that you [...] you will allow to register on the [employer] Patient Portal for access to your information. You can also access the [employer] Patient Portal on the [employer] reena. Simply click on Health Records under Health Data and then click on the [employer] logo. HOW TO SAFELY DISPOSE OF PRESCRIPTION [...] Call your local pharmacy or go to [email or web address] to find one close to you.3.Make use of household items: Use cat litter or old coffee grounds to dispose medications if other options are not available. Mix your drugs with these household products, seal them in an airtight container and throw it into the garbage. Call [facility]: [phone] to be sure your drugs can be [...] and explained to me and I,BELL ROBISON E understand my current condition and have read and understand these discharge instructions. I have received a written copy of the plan/instructions. If I have questions, I am aware that I should contact my doctor. 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 Signature: __ Date/Time: Relationship to Patient: Witness Name/Signature: Date/Time: [facility] Clinical Note 05-30-2024 Note Date & Type Note Facility 05-30-2024 Note Exam Date Time Procedure Performing Provider Status 05/30/24 2:32 PM EKG (ED) - CV KIT MARTINEZ MD; Auth (Verified) ECG Final Report SINUS RHYTHM PROBABLE LEFT ATRIAL ENLARGEMENT Electronic Signature: KIT MARTINEZ MD 05/30/2024 15:56:38 [facility] Clinical Note 05-30-2024 Note Date & Type Note Facility 05-30-2024 Note Exam Date Time Procedure Performing Provider Status 05/30/24 1:42 PM XR Chest 1 View KIRTI MYERS MD; Auth (Verified) [id number] ORIGINAL EXAMINATION: ONE XRAY VIEW OF THE [...] Date: 05/30/2024 1:50:03 PM Ordering Provider: IZABELA [facility] History and physical note 09-16-2021 Note Date & Type Note Facility 09-16-2021 [facility] HISTORY & PHYSICAL/DISCHARGE SUMMARY NAME ACCOUNT SEX AGE ADMIT DISCHARGE PT MED. RECORD# NUMBER DATE DATE TYPE RICKI, [id number] M 56 09/12/21 2 BELL Zeng [id number] ROOM: 304MO DATE OF : 61 DICTATING PHYSICIAN: Teena Almanzar ADMITTING DIAGNOSES: 1. Chest pain. 2. Elevated blood pressure. CHIEF COMPLAINT: Chest pain. HISTORY OF PRESENT ILLNESS: This is a 56-year-old healthy gentleman with no active health problems. The patient was in his usual state of health. Yesterday, the pain was in retirement. He was noted to have elevated blood [...] patient then was admitted to rule out PA. Troponins were negative. EKG revealed no acute [...] of 4 BELL ROBISON History Physical/Discharge Summary RICKI, BELL Susan :1965 alcohol. 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 He has not [...] prehospital setting. The patient recently was in retirement when he was brought in here for his chest pain. I did explain at length with the patient the importance when he gets discharge to have a primary care physician and to record his blood pressure for t (more content not included)... [facility] Evaluation + Plan note Note Date & Type Note Facility Evaluation + Plan note No data available for this section [facility] Evaluation note Note Date & Type Note Facility Evaluation note No assessment information availa [facility] Work Phone: Reason for referral (narrative) Note Date & Type Note Facility Reason for referral (narrative) No reason for referral information available [facility] Work Phone: Summary Purpose Family History No Family History Records FoundNo Family History Records Found No data available for this section No Family History Records FoundNo Family History Records Found Advance Directives No Advanced Directives Records Found Advance Directive Response Recorded Date/ Time Do you have a Healthcare Power of Money [employer]? No July 18, 2024 6:29pm Chief Complaint and Reason for Visit Chief Complaint Admit Date other pain July 18, 2024 6:08pm Additional Source Comments (unrecognized sect ion and content) No Status Records FoundNo Status Records FoundNo Status Records FoundNo Status Records Found INFORMATION SOURCE (unrecogn ized section and content) DATE CREATED AUTHOR 09/04/2017 [facility] DATE CREATED AUTHOR AUTHOR'S ORGANIZ ATION 04/05/2022 [facility] DATE CREATED AUTHOR AUTHOR'S ORGANIZ ATION 06/16/2024 [facility] DATE CREATED AUTHOR AUTHOR'S ORGANIZ ATION 07/24/2024 [facility] Patient Care team informatio n (unrecognized section [...] BE BASED ON THE PRIMARY CLINICAL RECORDS. [facility]. provides no warranty or guarantee of the accuracy or completeness of information in this document.
== END ==
LOC: OLS.SW 05:00
PROVIDERS: Visit Provider Internal Medicine
DX: D64.9 Anemia, unspecified (principal); I10 Essential (primary) hypertension; C61 Malignant neoplasm of prostate
CPT/HCPCS: 36415; 84153